=== PATIENT | female | born 1950 | race Caucasian/White ===

== ENCOUNTER → 2016-10-12 | Outpatient (CLI) | payer BC, MEDICARE | END | disposition home or self-care (01) | LOC: LABWHC1 09:41 | PROVIDERS: ATTEND Psychiatry & Neurology Neurology | DX: R26.89 Other abnormalities of gait and mobility (principal) | CPT/HCPCS: 36415; 82607; 82747 ==

== ENCOUNTER → 2016-11-24 | Outpatient (CLI) | payer BC, MEDICARE ==
[2016-11-24 10:55] LABS: Blood Urea Nitrogen 17 mg/dL (7-17); Non-African American GFR(MDRD) >60 (>60 ml/min/1.73 sqM)
== END ==
LOC: LABWHC1 09:40
PROVIDERS: ATTEND Psychiatry & Neurology Neurology
DX: R26.89 Other abnormalities of gait and mobility (principal); R42 Dizziness and giddiness
CPT/HCPCS: 36415; 82565; 84520

== ENCOUNTER → 2017-01-09 | Outpatient (CLI) | payer BC, MEDICARE ==
[2017-01-09 10:58] LABS: CH 28.7; CHCM 32.6; HDW 2.17; HGB 13.4 gm/dL (11.4-16.0); MCH 28.1 pg (25.0-35.0); MCHC 31.8 g/dL (31.0-37.0); MCV 88.4 fL (80.0-100.0); Mean Platelet Volume 6.2; RBC 4.75 m/uL (3.80-5.40); RDW 13.8 % (11.5-15.5); WBC 7.5 k/uL (3.8-10.6)
[2017-01-09 11:12] LABS: ALT 25 U/L (9-52); AST 15 U/L (14-36); Alkaline Phosphatase 117 U/L (38-126); Anion Gap 11 mmol/L; Blood Urea Nitrogen 18 mg/dL (7-17); Calcium 9.5 mg/dL (8.4-10.2); Carbon Dioxide 24 mmol/L (22-30); Chloride 95 mmol/L (98-107); Glucose 76 mg/dL (74-99); Non-African American GFR(MDRD) >60 (>60 ml/min/1.73 sqM); Potassium 4.7 mmol/L (3.5-5.1); Sodium 130 mmol/L (137-145); Total Bilirubin 0.5 mg/dL (0.2-1.3); Total Protein 7.2 g/dL (6.3-8.2)
[2017-01-09 11:35] LABS: Partial Thromboplastin Time 26.1 sec (22.0-30.0); Prothrombin Time 10.3 sec (9.0-12.0)
[2017-01-09 12:19] LABS: Appearance,Urine Clear (Clear); Bilirubin,Urine Negative (Negative); Glucose,Urine (UA) Negative (Negative); Ketones,Urine Negative (Negative); Leukocyte Esterase,Urine Negative (Negative); Nitrite,Urine Negative (Negative); Particle Count 1675; Protein,Urine Negative (Negative); RBC,Urine 3 /hpf (0-5); Specific Gravity,Urine 1.006 (1.001-1.035); UA Billing (MACRO vs. MICRO) MICRO; Urobilinogen,Urine <2.0 mg/dL (<2.0); WBC,Urine 3 /hpf (0-5)
== END | disposition home or self-care (01) ==
LOC: LABWHC1 09:27
PROVIDERS: ATTEND Orthopaedic Surgery
DX: Z01.812 Encounter for preprocedural laboratory examination (principal)
CPT/HCPCS: 36415; 80053; 81001; 85027; 85610; 85730; 87070

== ENCOUNTER 2017-01-16 05:59 | Inpatient (IN) | payer BC, MEDICARE ==
--- NOTE | 2017-01-02 16:56 | CONS ---
DATE OF CONSULTATION: REASON FOR CONSULTATION: Preoperative medical evaluation. HISTORY OF PRESENT ILLNESS: This 66-year-old female is scheduled to undergo left total knee arthroplasty. She has a history of degenerative arthritis, and due to increasing pain and decreasing function in the joint, the patient is scheduled for the surgery. Patient has been evaluated by Dr. Mendez and scheduled for the surgery. The patient has had no recent infections; has no history of any bleeding disorder. She recently underwent evaluation for a syncopal episode back in June. She had normal CT scan of the brain, normal stress testing. The patient also had an MRI of the brain due to imbalance and disequilibrium. That was unremarkable except for some fluid in the mastoids. The patient has been followed by ENT, who treated her, and her balance is somewhat better. The patient has no falls. Past medical history is primarily significant for hypertension, controlled with medications; history of hypothyroidism following treatment for hyperthyroidism. No history of any lung disease, liver disease, kidney disease, ulcers. Does have history of gastroesophageal reflux and heartburn if she does not take medication. No history of kidney disease. Does have degenerative arthritis. No history of any cardiac illness. PAST SURGICAL HISTORY: Negative for any major surgery. PERSONAL HISTORY: Nonsmoker. No alcohol. Medications include: 1. Hydrochlorothiazide 25 mg half tablet every other day. 2. Losartan/hydrochlorothiazide 50/12.5 one daily. 3. Prevacid 30 mg daily. 4. Metoprolol 50 mg daily. 5. Levothyroxine 112 mcg daily. SOCIAL HISTORY: Patient lives with family. FAMILY MEDICAL HISTORY: Mother of dementia, ASHD, old age and had significant degenerative arthritis of the knees. Sister has a history of mitral regurgitation and carcinoma of the breast and diabetes mellitus. Her children are healthy. REVIEW OF SYSTEMS: NEURO: Denies any headaches, dizziness. No double vision, blurred vision. No symptoms of TIA, syncope, seizures. PSYCH: No anxiety, depression. CARDIAC: No chest pain, angina, palpitations. RESPIRATORY: Denies shortness of breath, cough, hemoptysis. GI: No nausea, vomiting, abdominal pain, diarrhea. : No symptoms of dysuria, hematuria, urgency, frequency. EXTREMITIES: Denies pain except at the left knee. CONSTITUTIONAL: No fever or chills. HEMATOLOGICAL: No anemia or bleeding disorder. ENDOCRINE: No history of diabetes mellitus. History of hypothyroidism. SKIN: No rashes. No open sores. ENT: Dentition well maintained. Ears reveal no drainage. MUSCULOSKELETAL: Arthritic symptoms, left knee. PHYSICAL EXAMINATION: Pleasant female in no distress. VITAL SIGNS: Blood pressure 150/80. Pulse rate is 76, regular. Afebrile. Respiratory rate 16. HEENT: Normocephalic. NECK: No JVD. Pupils reactive. Nostrils clear. Oral cavity is moist. Dentition well maintained. Gum health is good. Ears reveal no drainage. Neck reveals no JVD, carotid bruits or thyromegaly. No supraclavicular lymphadenopathy. Chest is clear to auscultation and percussion. CARDIAC: Normal S1, S2 with no gallops, murmurs, rubs. ABDOMEN: Soft. No palpable masses. Bowel sounds normal. No organomegaly. No abdominal bruits. Extremities reveal trace edema. Normal pulses, both upper and lower extremities. Significant valgus deformity, left knee, and degenerative arthritic changes. EKG is within normal limits. ASSESSMENT: 1. Hypertension, controlled. 2. Hypothyroidism, on replacement therapy. 3. Degenerative arthritis, especially affecting the left knee. 4. History of syncopal episode in June with negative workup. PLAN: The patient is stable to undergo the planned surgical procedure. Patient's condition was discussed with the patient. The patient will take her Prevacid, metoprolol and thyroid medicine on the morning of surgery. Prognosis guarded. Reviewed with patient the risk of infections and blood clots, for which adequate precautions have been taken. Patient's condition is stable at present to undergo the planned surgical procedure.
[2017-01-10 13:59] VITALS: BMI 36.1
[~2017-01-16 05:59] MED LIST: CLINDAMYCIN 900 MG in DEXTROSE 5% IN WATER 50 ML IVPB ONE; DEXAMETHASONE SOD PHOSPHATE 10 MG/ML 1 ML VIAL IV ONE; LACTATED RINGERS 1,000 ML IV SCH; MIDAZOLAM 2 MG/2 ML VIAL IV PRN; ONDANSETRON 4 MG/2 ML VIAL IVP ONE
[2017-01-16 06:34] LABS: Glucose,Whole Blood 92 mg/dL (75-99)
[2017-01-16] MEDS ORDERED: LIDOCAINE 1% 20 ML VIAL (10MG/ML) FOR IV START INTRADERMA ONE (06:35)
[2017-01-16] MEDS ORDERED: SCOPOLAMINE 1.5MG/72HR PATCH TRANSDERM ONE (06:35)
[2017-01-16] MEDS ORDERED: fentaNYL (PF) 50 MCG/ML 2 ML AMP ONE (07:00)
[2017-01-16] MEDS ORDERED: ePHEDrine 50 MG/ML 1 ML AMP ONE (07:00)
[2017-01-16] MEDS ORDERED: PROPOFOL 10 MG/ML 20 ML VIAL IV ONE (07:00)
[2017-01-16] MEDS ORDERED: MIDAZOLAM 2 MG/2 ML VIAL ONE (07:00)
[2017-01-16] MEDS ORDERED: CLINDAMYCIN 1,800 MG in SODIUM CHLORIDE 0.9% IRRIGATIO 3,000 ML IRRIGATION ONE (07:42)
[2017-01-16] MEDS ORDERED: LACTATED RINGERS 1,000 ML IV ONE ×2 (08:00)
[2017-01-16] MEDS ORDERED: BISACODYL 10 MG SUPP RECTAL PRN (09:14)
[2017-01-16] MEDS ORDERED: TEMAZEPAM 15 MG CAP PO PRN (09:14)
[2017-01-16] MEDS ORDERED: ONDANSETRON 4 MG/2 ML VIAL IVP PRN (09:14)
[2017-01-16] MEDS ORDERED: ACETAMINOPHEN TAB 325 MG TAB PO PRN (09:14)
[2017-01-16] MEDS ORDERED: NALOXONE 0.4 MG/ML 1 ML VIAL IV PRN (09:14)
[2017-01-16] MEDS ORDERED: HYDROmorphone 1 MG/ML 1 ML SYRINGE IVP PRN ×3 (09:14)
[2017-01-16] MEDS ORDERED: MAGNESIUM HYDROXIDE 2,400 MG/10 ML CUP PO PRN (09:14)
[2017-01-16] MEDS ORDERED: HYDROcodone/APAP 5-325MG 1 EACH TAB PO PRN (09:14)
[2017-01-16] MEDS ORDERED: NA PHOS,M-B/NA PHOS,DI-BA 133 ML ENEMA RECTAL PRN (09:14)
[2017-01-16] MEDS: HYDROmorphone 1 MG/ML 1 ML SYRINGE IVP PRN ×3 (10:05→14:44)
--- NOTE | 2017-01-16 10:15 | XR ---
Left knee Limited HISTORY: Postop 2 views of the left knee No comparisons Patient is status post left knee arthroplasty. There is anatomic alignment. Lucency present in the so ft tissues compatible with postop state. IMPRESSION: Orthopedic Follow-up.
[2017-01-16] MEDS: LACTATED RINGERS 1,000 ML IV SCH ×2 (11:17→20:26)
[2017-01-16] MEDS: HYDROcodone/APAP 5-325MG 1 EACH TAB PO PRN ×2 (11:20→17:24)
[2017-01-16] MEDS: CLINDAMYCIN 900 MG in DEXTROSE 5% IN WATER 50 ML IVPB SCH ×4 (12:10→17:31)
[2017-01-16] MEDS: KETOROLAC 30 MG/ML 1 ML VIAL IVP SCH ×3 (12:31→23:30)
[2017-01-16] MEDS: hydrOXYzine PAMOATE 25 MG CAP PO PRN (17:24)
[2017-01-16] MEDS ORDERED: WARFARIN 5 MG TAB PO ONE (18:00)
[2017-01-16] MEDS ORDERED: LEVOTHYROXINE 112 MCG TAB PO SCH (18:00)
[2017-01-16] MEDS: METOPROLOL TARTRATE 50 MG TAB PO SCH (20:25)
[2017-01-16] MEDS: SENNOSIDES-DOCUSATE SODIUM 1 EACH TAB PO SCH (20:25)
[2017-01-16] MEDS: LORATADINE 10 MG TAB PO SCH (20:25)
[2017-01-16] MEDS: FAMOTIDINE 20 MG TAB PO SCH (22:07)
[2017-01-17] MEDS: LACTATED RINGERS 1,000 ML IV SCH ×2 (04:17→16:37)
[2017-01-17] MEDS: HYDROcodone/APAP 5-325MG 1 EACH TAB PO PRN ×3 (04:30→15:56)
[2017-01-17] MEDS: hydrOXYzine PAMOATE 25 MG CAP PO PRN ×3 (04:31→22:02)
[2017-01-17] MEDS: KETOROLAC 30 MG/ML 1 ML VIAL IVP SCH ×3 (05:40→18:00)
--- NOTE | 2017-01-17 07:46 | PN ---
CHIEF COMPLAINT: Re-evaluation. HISTORY OF PRESENT ILLNESS: This is a 66-year-old female who is status post left total knee arthroplasty. REVIEW OF SYSTEMS: NEURO: Denies any headaches, dizziness. PSYCH: No anxiety. CARDIAC: No chest pain, angina, palpitation. RESPIRATORY: No shortness breath, cough. GI: No nausea, vomiting, abdominal pain. Has significant pain in the left knee. CONSTITUTIONAL: No fever or chills. PHYSICAL EXAMINATION: Pleasant female in no distress. Vital signs reveal temperature 97.8, pulse 89, respirations 16, blood pressure 131/72, pulse ox of 95% on room air. HEENT: Normocephalic. NECK: No JVD. Chest is clear to auscultation. CARDIAC: Normal S1, S2 with no gallops. Systolic murmur. No gallops or murmurs. ABDOMEN: Soft. Bowel sounds active. Extremities reveal no edema. NEUROLOGIC: Awake, alert, oriented with well coordinated movements of both upper extremities. Left knee total, left status post knee arthroplasty. Laboratory assessment revealed a blood sugar of 92 preoperatively. ASSESSMENT: 1. Hypertension, controlled. 2. History of gastroesophageal reflux. 3. History of hypothyroidism on replacement therapy. 4. Status post left knee arthroplasty. PLAN: The patient is stable. Continue present medical regimen. The patient's condition discussed with the patient. Prognosis guarded.
[2017-01-17] MEDS: PANTOPRAZOLE 40 MG TABLET PO SCH (08:04)
[2017-01-17 08:13] LABS: INR 1.3 (<1.1); Prothrombin Time 12.5 sec (9.0-12.0)
[2017-01-17 08:15] LABS: Basophils % (A) 0 %; CH 28.8; CHCM 32.9; Eosinophils % (A) 1 %; HCT 29.7 % (34.0-46.0); HDW 2.08; Luc # (Auto) 0.08; Luc % (Auto) 1; Lymphocytes # (A) 0.9 k/uL (1.0-4.8); Lymphocytes % (A) 15 %; MCV 87.9 fL (80.0-100.0); Mean Platelet Volume 6.2; Monocytes # (A) 0.4 k/uL (0-1.0); Monocytes % (A) 7 %; Neutrophils # (A) 4.7 k/uL (1.3-7.7); Neutrophils % (A) 76 %; RBC 3.38 m/uL (3.80-5.40); WBC 6.2 k/uL (3.8-10.6); WBC (Perox) 6.49
[2017-01-17 08:17] LABS: HGB 9.8 gm/dL (11.4-16.0)
--- NOTE | 2017-01-17 08:29 | P.PN ---
Subjective Principal diagnosis: Status post Left total knee arthroplasty This is a 66 year-old female post left total knee arthroplasty. This is post- op day 1. The patient was evaluated at the bedside today. The patient denies nausea, vomiting, abdominal pain, shortness of breath, and chest pain this morning. She states her pain is controlled at this time. The patient has not been up with physical therapy yet this morning but did sit up in the recliner chair yesterday. She does state she has some calf pain this morning. Objective - Vital Signs Vital signs: Vital Signs Temp 96.5 F L 01/17/17 07:40 Pulse 66 01/17/17 07:40 Resp 16 01/17/17 07:40 BP 131/73 01/17/17 07:40 Pulse Ox 99 01/17/17 07:40 Intake & Output 01/16/17 01/17/17 01/17/17 18:59 06:59 18:59 Intake Total 4668 1680 Output Total 2325 520 Balance 2343 1160 Weight 93.894 kg Intake: IV 4268 1200 Lactated Ringers 1,000 ml 1200 @ 100 mls/hr IV .Q10H BISHOP Rx#:[id number] Intake, IV Titration 400 Amount Lactated Ringers 1,000 ml 400 @ 100 mls/hr IV .Q10H BISHOP Rx#:[id number] Oral 480 Output: Urine 2250 520 Uretheral (Herron) 520 Estimated Blood Loss 75 Other: Voiding Method Indwelling Catheter Indwelling Catheter # Voids 1 - Exam The patient does not appear in acute distress. Alert and orientated x3. Dressing is clean dry and intact. Incision appears fine with no erythema or active drainage. Calf is soft but tender. Mild calf swelling is present. Good foot and ankle motion without difficulty. Sensation and circulatory status is intact. - Labs CBC & Chem 7: 01/17/17 07:25 Labs: Abnormal Lab Results - Last 24 Hours (Table) 01/17/17 01/17/17 Range/Units 07:22 07:25 RBC 3.38 L (3.80-5.40) m/uL Hgb 9.8 L D (11.4-16.0) gm/dL Hct 29.7 L (34.0-46.0) % Lymphocytes # 0.9 L (1.0-4.8) k/uL PT 12.5 H (9.0-12.0) sec Laboratory Tests 01/17/17 07:22 PT 12.5 H INR 1.3 Assessment and Plan (1) Primary localized osteoarthritis of left knee Status: Acute (2) Status post left knee replacement Status: Acute Plan: 1. Continue pain control 2. Anticoagulation with Coumadin per protocol 3. Start physical therapy and ambulation today 4. Venous doppler ordered. 5. Anticipate discharge home with homecare likely on Sunday
--- NOTE | 2017-01-17 10:06 | US ---
EXAMINATION TYPE: US venous doppler duplex LE LT DATE OF EXAM: 01/17/2017 9:35 AM COMPARISON: NONE CLINICAL HISTORY: left calf pain and swelling. SIDE PERFORMED: Left TECHNIQUE: The lower extremity deep venous system is examined utilizing real time linear array sonog aretha with graded compression, doppler sonography and color-flow sonography. VESSELS IMAGED: External Iliac Vein (EIV) Common Femoral Vein Deep Femoral Vein Greater Saphenous Vein * Femoral Vein Popliteal Vein Small Saphenous Vein * Proximal Calf Veins (* superficial vessels) Patient had knee replacement yesterday, extensive swelling at pop fossa, pain at pop fossa Left Leg: Appears negative for DVT. Technically difficult at pop fossa due to swelling. IMPRESSION: 1. No diagnostic evidence of DVT as visualized.
--- NOTE | 2017-01-17 13:03 | OP ---
DATE OF SERVICE: 01/16/2017 SURGEON: CAROL SINCLAIR DO AUTOMATIC PROFILE SANDER OPERATOR: BRISEYDA FONSECA PREOPERATIVE DIAGNOSIS: Severe degenerative joint disease of the left knee with significant valgus deformity. POSTOPERATIVE DIAGNOSIS: Severe degenerative joint disease of the left knee with significant valgus deformity. OPERATION: Left total knee replacement arthroplasty utilizing Moy Persona posterior stabilizing polyethylene component. ANESTHESIA: ESTIMATED BLOOD LOSS: SPECIMENS REMOVED: COMPLICATIONS: OPERATIVE FINDINGS: DESCRIPTION OF PROCEDURE: Patient is taken to the Operative Suite and placed in supine position. General inhalation anesthesia with spinal anesthesia was performed by the Department of Anesthesiology. A Betadine prep is carried out over the left knee, mid thigh to mid calf. Sterile drapes applied in the usual manner. A medial parapatellar incision was developed as well as the synovium. Patella was everted and dislocated laterally as the knee was brought into flexion position and held in position with leg hernandez. A size #3 lateral trial component was prepared and the appropriate cut was developed. The positioning component was impacted in position and alignment was noted. The tibial cutting guide was brought into position and appropriate wafer cut developed. The medial and lateral malleolus was excised. A size #6 tibial plate was selected and preparation for temporary spacer in size #11 was utilized in preparing for appropriate peg hole positions. The area was irrigated copiously. The tibial tray was marked for position held and appropriate peg holes were drilled in preparation for tibial tray. With the patella everted, a shelving planer was utilized in preparing for a size 33 mm patellar button. It was drilled for position and appropriate in the reaming performed. All provisional components were removed. With the knee in flexion position the trabecular component size D was impacted and excellent bone component interface was noted. Minimal cement was utilized. The final patellar component was cemented in position in the predrilled holes. All excess cement was removed. With the leg positioned in slight flexion,. The area was irrigated copiously with antibiotic solution. The medial retinaculum was then approximated with #3 Vicryl suture. A #3 Quill suture was used to reinforce the retinaculum. A 2-0 Vicryl suture was utilized for closure of the subcutaneous tissues. A 3-0 Quill suture was utilized for the subcuticular closure. Dermabond was utilized on the wound. Betadine and sterile pressure dressing to the wound was applied. The Pneumo vac had been deflated and patient transferred to the Recovery Room in satisfactory post-op condition. GROSS PATHOLOGY: Tricompartment degenerative joint disease left knee with valgus deformity. VEENA
[2017-01-17] MEDS ORDERED: WARFARIN 7.5 MG TAB PO ONE (18:00)
[2017-01-17] MEDS ORDERED: LEVOTHYROXINE 112 MCG TAB PO SCH (18:00)
[2017-01-17] MEDS: FAMOTIDINE 20 MG TAB PO SCH (21:22)
[2017-01-17] MEDS: METOPROLOL TARTRATE 50 MG TAB PO SCH (21:22)
[2017-01-17] MEDS: SENNOSIDES-DOCUSATE SODIUM 1 EACH TAB PO SCH (21:22)
[2017-01-17] MEDS: LORATADINE 10 MG TAB PO SCH (21:22)
[2017-01-17] MEDS: HYDROcodone/APAP 7.5-325MG 1 EACH TAB PO PRN (22:01)
[2017-01-18] MEDS: KETOROLAC 30 MG/ML 1 ML VIAL IVP SCH ×3 (00:13→13:03)
[2017-01-18 02:19] VITALS: RESP 16
[2017-01-18 07:24] VITALS: BP 147/75; PULSE 72; TEMP 98.1
[2017-01-18 07:28] LABS: INR 1.4 (<1.1); Prothrombin Time 13.8 sec (9.0-12.0)
[2017-01-18] MEDS: PANTOPRAZOLE 40 MG TABLET PO SCH (07:47)
[2017-01-18] MEDS: hydrOXYzine PAMOATE 25 MG CAP PO PRN ×2 (07:49→13:58)
[2017-01-18] MEDS: HYDROcodone/APAP 7.5-325MG 1 EACH TAB PO PRN ×2 (07:50→13:58)
--- NOTE | 2017-01-18 08:05 | PN ---
CHIEF COMPLAINT: Re-evaluation. HISTORY OF PRESENT ILLNESS: This is a 66-year-old female status post left knee arthroplasty. The patient is doing better today. Her pain is better controlled. She denies much other symptoms. No headaches, dizziness. She is in good spirits. She does have a history of hypertension and hypothyroidism. She had slight dizziness yesterday when she got up. Today she has not been up yet. REVIEW OF SYSTEMS: NEURO: Denies any headaches, dizziness. PSYCH: No anxiety. CARDIAC: No chest pain, angina, palpitation. RESPIRATORY: No shortness of breath, cough. GI: No nausea, vomiting, abdominal pain. No bowel movement. : No symptoms of dysuria, hematuria. EXTREMITIES: No pain. CONSTITUTIONAL: No fever or chills. PHYSICAL EXAMINATION: A pleasant female in no distress. Vital signs reveal temperature 96.5, pulse 66, respirations 16, blood pressure 131/73, pulse ox 99% on room air. HEENT: Normocephalic. NECK: Supple. No JVD. Chest is clear to auscultation. CARDIAC: Normal S1, S2 with no gallops. Systolic murmur 2/6 left sternal border. ABDOMEN: Soft, no palpable masses. Bowel sounds normal. No organomegaly. No abdominal bruits. EXTREMITIES: No edema. Neurologically awake, alert, oriented with well-coordinated movements in both upper extremities. LABORATORY ASSESSMENT: Hemoglobin 9.8. ASSESSMENT: 1. Hypertension, controlled. 2. Anemia secondary to acute blood loss. PLAN: The patient to continue present medical regimen. Patient's condition discussed with the patient. Prognosis guarded.
--- NOTE | 2017-01-18 08:25 | PN ---
DATE OF SERVICE: 01/18/2017 CHIEF COMPLAINT: Re-evaluation. HISTORY OF PRESENT ILLNESS: This is a 66-year-old who was admitted to the hospital and has undergone a left total knee arthroplasty. She is doing better. REVIEW OF SYSTEMS: NEURO: Denies any headaches, dizziness. PSYCH: No anxiety. CARDIAC: No chest pain, angina, palpitation. RESPIRATORY: No shortness of breath, cough, hemoptysis. GI: No nausea, vomiting, or abdominal pain. No bowel movement still. : No symptoms of dysuria, hematuria. EXTREMITIES: No pain except to the left knee. CONSTITUTIONAL: No fever or chills. PHYSICAL EXAMINATION: Pleasant female in no distress. VITAL SIGNS: Temperature 98.1, pulse 72, respirations 16, blood pressure 147/75, pulse ox 98% on room air. HEENT: Normocephalic. NECK: Supple. CHEST: Clear to auscultation. CARDIAC: Normal S1, S2 with no gallops, murmurs. ABDOMEN: Soft. Bowel sounds active. EXTREMITIES: No edema right leg, trace left ankle. NEUROLOGIC: Awake, alert, oriented with well coordinated movements in both upper extremities. The patient has been walking with a walker. Laboratory assessment: INR 1.4. Hemoglobin is 9.8. ASSESSMENT: 1. Hypertension, on medical therapy. 2. Hypothyroidism, on replacement therapy. 3. Anemia secondary to acute blood loss. 4. Degenerative joint disease, status post left knee arthroplasty. PLAN: The patient is stable. Continue present medical regimen. The patient's condition discussed with the patient and her Hyzaar will be resumed. Upon discharge, patient to continue her medications.
--- NOTE | 2017-01-18 08:37 | P.PN ---
Subjective Principal diagnosis: Status post Left total knee arthroplasty This is a 66 year-old female post left total knee arthroplasty. This is post- op day 2. The patient was evaluated at the bedside today. The patient denies nausea, vomiting, abdominal pain, shortness of breath, and chest pain this morning. She states her pain is controlled at this time. The patient has been up ambulating with physical therapy and to the bathroom. She continues to have calf pain and swelling. Doppler was negative yesterday. Objective - Vital Signs Vital signs: Vital Signs Temp 98.1 F 01/18/17 07:00 Pulse 72 01/18/17 07:00 Resp 16 01/18/17 07:00 BP 147/75 01/18/17 07:00 Pulse Ox 98 01/18/17 07:00 Intake & Output 01/17/17 01/18/17 01/18/17 18:59 06:59 18:59 Intake Total 1200 300 Output Total 600 Balance 600 300 Intake: Oral 1200 300 Output: Urine 600 Uretheral (Herron) 400 Other: Voiding Method Toilet Toilet # Voids 2 - Exam The patient does not appear in acute distress. Alert and orientated x3. Dressing is clean dry and intact. Incision appears fine with no erythema or active drainage. Calf is soft but tender. Mild calf swelling is present. Good foot and ankle motion without difficulty. Sensation and circulatory status is intact. - Labs CBC & Chem 7: 01/17/17 07:25 Labs: Abnormal Lab Results - Last 24 Hours (Table) 01/18/17 Range/Units 06:58 PT 13.8 H (9.0-12.0) sec Laboratory Tests 01/18/17 06:58 PT 13.8 H INR 1.4 Assessment and Plan (1) Primary localized osteoarthritis of left knee Status: Acute (2) Status post left knee replacement Status: Acute Plan: 1. Continue pain control 2. Anticoagulation with Coumadin per protocol 3. Continue physical therapy and ambulation today 4. Anticipate discharge home with homecare later today or tomorrow
[2017-01-18] MEDS ORDERED: LOSARTAN-HCTZ 50-12.5 MG 1 EACH TAB PO SCH (09:00)
--- NOTE | 2017-01-23 11:47 | P.DS ---
Providers Date of admission: 01/16/17 05:59 Expected date of discharge: 01/18/17 Attending physician: Sacha Mendez Consults: 01/16/17 09:14 Consult Physician Routine Consulting Provider: Shmuel Arauz Consult Reason/Comments: medical management Do you want consulting provider notified?: Yes Primary care physician: Shmuel Arauz - Discharge Diagnosis(es) (1) Primary localized osteoarthritis of left knee Status: Acute (2) Status post left knee replacement Status: Acute Hospital Course: This is a 66 year-old female last seen in our office with complaints of left knee pain. The patient has a known history of degenerative arthritis of the left knee and presented to discuss options. After discussion and consideration the patient elected to proceed with a left total knee arthroplasty. The patient was seen preoperatively by Dr. Arauz and cleared for surgery. The patient was admitted to [facility] on 01/16/2017 and underwent a left total knee arthroplasty by Dr. Mendez. The procedure was performed without complications or sequelae. The patient was seen and evaluated at bedside today. The patient's pain is well-controlled. The patient has no new complaints today denies any fevers, chills, nausea, vomiting, or shortness of breath. Vital signs are stable. The dressing is clean, dry and intact. Incision looks fine with no erythema or active drainage. Calf is soft but mildly tender. The patient has full ankle motion without difficulty. The patient's left lower extremity is neurovascularly intact. The patient is orthopedically stable for discharge home today in good condition. Pertinent Studies: Laboratory Tests 01/17/17 01/18/17 07:25 06:58 WBC 6.2 RBC 3.38 L Hgb 9.8 L D Hct 29.7 L PT 13.8 H INR 1.4 Patient Condition at Discharge: Stable Plan - Discharge Summary New Discharge Prescriptions: Aspirin 325 mg PO DAILY #30 tab HYDROcodone/APAP 7.5-325MG [[place]avenport 7.5-325] 1 - 2 tab PO Q4-6H PRN #90 tab PRN Reason: Pain hydrOXYzine PAMOATE [Vistaril] 25 mg PO TID PRN #60 cap PRN Reason: Pain Sennosides-Docusate Sodium [Senokot-S] 2 tab PO DAILY #30 tablet Discharge Medication List Acetaminophen Tab [Tylenol] 1,000 mg PO DAILY@1415 09/29/15 [History] Lansoprazole [Prevacid] 30 mg PO QAM 09/29/15 [History] Levothyroxine Sodium [Synthroid] 112 mcg PO Q2D@1800 09/29/15 [History] Losartan-Hctz 50-12.5 mg [Hyzaar 50-12.5] 1 tab PO QAM 09/29/15 [History] Metoprolol Tartrate [Lopressor] 50 mg PO HS 09/29/15 [History] Multivit-Min/FA/Lycopen/Lutein [Centrum Silver Tablet] 1 tab PO DAILY 09/29/15 [ History] Naproxen Sodium [Aleve] 440 mg PO QAM 09/29/15 [History] Ranitidine HCl [Zantac] 150 mg PO HS 09/29/15 [History] Cetirizine HCl 10 mg PO DAILY@2000 01/10/17 [History] Levothyroxine Sodium [Synthroid] 168 mcg PO Q2D@1800 01/10/17 [History] Systane Ultra 1 drop BOTH EYES QID 01/10/17 [History] Triamcinolone Acetonide [Nasacort] 1 spray EA NOSTRIL QAM 01/10/17 [History] Aspirin 325 mg PO DAILY #30 tab 01/18/17 [Rx] Bisacodyl [Dulcolax] 10 mg RECTAL DAILY PRN suppositor 01/18/17 [Rx] HYDROcodone/APAP 7.5-325MG [Davenport 7.5-325] 1 - 2 tab PO Q4-6H PRN #90 tab [Rx] Magnesium Hydroxide [Milk of Magnesia Concentrate] 2,400 mg PO DAILY PRN dose 01/18/17 [Rx] Sennosides-Docusate Sodium [Senokot-S] 2 tab PO DAILY #30 tablet 01/18/17 [Rx] hydrOXYzine PAMOATE [Vistaril] 25 mg PO TID PRN #60 cap 01/18/17 [Rx] Warfarin [Coumadin] 2.5 mg PO Q48H 01/21/17 [History] Follow up Appointment(s)/Referral(s): Shmuel Arauz MD [Primary Care Provider] - 1 Week (pt prefers to schedule f/u) Sacha Mendez DO [Doctor of Osteopathic Medicine] - 02/01/17 10:30 am [facility] Visiting Nurse, [NON-STAFF] - 1 Week Ambulatory/Diagnostic Orders: Continuous Passive Motion (CPM) Machine [DME.AMB1] Time Frame: 3 Weeks, Location : Determined By Patient Activity/Diet/Wound Care/Special Instructions: [facility] [phone] -patient to call when home and they will schedule delivery of CPM Weightbearing as tolerated with a walker Coumadin 2.5 mg 1 by mouth every other day for 7 days then take Aspirin 325mg daily for 1 month CPM 5-6 hours daily May shower in 3 days if no drainage from incision Keep incision clean and dry Call [facility] [phone] with questions or concerns Discharge Disposition: HOME WITH HOME HEALTH SERVICES
== END 2017-01-18 15:10 | disposition home health service (06) | DRG 470 ==
LOC: 2ORMAIN 05:59 → 3SUR 09:37
PROVIDERS: ADMIT Orthopaedic Surgery; ATTEND Orthopaedic Surgery
PROC: 0SRD0J9 Replacement of Left Knee Joint with Synthetic Substitute, Cemented, Open Approach (ICD-10-PCS; principal; 2017-01-16 07:00)
DX: M17.12 Unilateral primary osteoarthritis, left knee (principal); D62 Acute posthemorrhagic anemia; I10 Essential (primary) hypertension; Z79.899 Other long term (current) drug therapy; E03.9 Hypothyroidism, unspecified; Z88.0 Allergy status to penicillin; Z88.2 Allergy status to sulfonamides; M21.062 Valgus deformity, not elsewhere classified, left knee; K21.9 Gastro-esophageal reflux disease without esophagitis; Z82.49 Family history of ischemic heart disease and other diseases of the circulatory system
CPT/HCPCS: 36415; 80053; 81001; 85025; 85027; 85610; 85730; 87070; 88300

== ENCOUNTER 2017-01-21 18:56 | Emergency (ER) | payer BC, MEDICARE ==
[2017-01-21 19:30] VITALS: TEMP 98.4
--- NOTE | 2017-01-21 19:48 | ED ---
General Adult HPI - General Chief complaint: Extremity Problem,Nontraumatic Stated complaint: Post surgical problem- Knee Source: patient, family, RN notes reviewed, old records reviewed Mode of arrival: wheelchair Limitations: no limitations - History of Present Illness Initial comments: Chief complaint and history of present illness this is a 66-year-old female who 5 days ago and a total left knee down on the left leg. Patient was placed on Coumadin at that time. Prior to being discharged she had an ultrasound which ruled out DVT. Since then she's been using the machine to help her flex and extend and continues to take her Coumadin. For the past 3 days she's becoming more more bruise with swelling and discomfort to the calf area. She called the ask a nurse and she was advised to come into the hospital for evaluation. She is denying any chills or fever. - Related Data Home Medications Medication Instructions Recorded Confirmed Acetaminophen Tab [Tylenol] 500 mg PO Q6H PRN 09/29/15 01/16/17 Lansoprazole [Prevacid] 30 mg PO QAM 09/29/15 01/16/17 Levothyroxine Sodium [Synthroid] 112 mcg PO Q2D@1800 09/29/15 01/16/17 Losartan-Hctz 50-12.5 mg [Hyzaar 1 tab PO QAM 09/29/15 01/16/17 50-12.5] Metoprolol Tartrate [Lopressor] 50 mg PO HS 09/29/15 01/16/17 Multivit-Min/FA/Lycopen/Lutein 1 tab PO DAILY 09/29/15 01/16/17 [Centrum Silver Tablet] Naproxen Sodium [Aleve] 220 mg PO QA 09/29/15 01/16/17 Ranitidine HCl [Zantac] 150 mg PO HS 09/29/15 01/16/17 Cetirizine HCl 10 mg PO DAILY@199901/10/17 01/16/17 Levothyroxine Sodium [Synthroid] 168 mcg PO Q2D@1800 01/10/17 01/16/17 Systane Ultra 1 drop BOTH EYES QID 01/10/17 01/16/17 Triamcinolone Acetonide [Nasacort] 1 spray EA NOSTRIL QAM 01/10/17 01/16/17 Warfarin [Coumadin] 2.5 mg PO Q48H 01/21/17 01/21/17 Previous Rx's Medication Instructions Recorded Aspirin 325 mg PO DAILY #30 tab 01/18/17 Bisacodyl [Dulcolax] 10 mg RECTAL DAILY PRN suppositor 01/18/17 HYDROcodone/APAP 7.5-325MG [[place] 1 - 2 tab PO Q4-6H PRN #90 tab 01/18/17 7.5-325] Magnesium Hydroxide [Milk of 2,400 mg PO DAILY PRN dose 01/18/17 Magnesia Concentrate] Sennosides-Docusate Sodium 2 tab PO DAILY #30 tablet 01/18/17 [Senokot-S] hydrOXYzine PAMOATE [Vistaril] 25 mg PO TID PRN #60 cap 01/18/17 Allergies Allergy/AdvReac Type Severity Reaction Status Date / Time adhesive Allergy skin Verified 01/21/17 20:35 redness and itching cyclosporine [From Restasis] Allergy "made me Verified 01/21/17 20:35 feel like I was drunk" Penicillins Allergy Anaphylaxis Verified 01/21/17 20:35 Sulfa (Sulfonamide Allergy Anaphylaxis Verified 01/21/17 20:35 Antibiotics) Review of Systems ROS Statement: Those systems with pertinent positive or pertinent negative responses have been documented in the HPI. review of systems no headache or visual acuity changes no chest pain no palpitations no shortness of breath no GI/ problems. Her complaint is pain as you expect after a total left knee but significant swelling and ecchymosis to her left lower leg. She is on Coumadin after surgery. All systems were reviewed. Past medical problems significant for GERD, hypertension, OA, hypothyroidism,Hiatal hernia and varicose veins. Patient surgeries tonsillectomy, corrective eye surgery and 5 days ago had a total left knee done. She has ALLERGIES to adhesive, cyclosporine, penicillins and sulfa. Patient does not smoke does not drink. ROS Other: All systems not noted in ROS Statement are negative. Past Medical History Past Medical History: GERD/Reflux, Hypertension, Osteoarthritis (OA), Thyroid Disorder Additional Past Medical History / Comment(s): hiatal hernia,varicose veins, steroid injections rt knee Jan 01 2017,sensitive skin History of Any Multi-Drug Resistant Organisms: None Reported Past Surgical History: Tonsillectomy Additional Past Surgical History / Comment(s): corrective eye surgery for crossed eye Past Anesthesia/Blood Transfusion Reactions: Previous Problems w/ Anesthesia, Motion Sickness, Postoperative Nausea & Vomiting (PONV) Additional Past Anesthesia/Blood Transfusion Reaction / Comment(s): headache with anesthesia,no hx blood transfusion Past Psychological History: Anxiety Smoking Status: Never smoker Past Alcohol Use History: None Reported Past Drug Use History: None Reported - Past Family History Sister(s) Family Medical History: Cancer Additional Family Medical History / Comment(s): breast Mother Family Medical History: No Reported History Father Family Medical History: Myocardial Infarction ([place]) Additional Family Medical History / Comment(s): at age 60 General Exam - General Exam Comments Initial Comments: General: The patient is awake and alert, complaining of discomfort and swelling and ecchymosis to her entire left lower leg distal to a 5-day-old total left knee surgery. Vital signs temp 98.4 pulse 91 respiratory rate 16 pulse ox 99% on room air blood pressure 172/77 Neck: The neck is supple, Cardiovascular: There is a regular rate and rhythm. No murmur, rub or gallop is appreciated. Respiratory: Lungs are clear to auscultation, respirations are non-labored, breath sounds are equal. No wheezes, stridor, rales, or rhonchi. Gastrointestinal: Soft, non-distended, non-tender abdomen without masses or organomegaly noted. There is no rebound or guarding present. No CVA tenderness. Bowel sounds are unremarkable. Back: no back pain Musculoskeletal: pain swelling and ecchymosis left leg post total left knee 5 days ago. Neurovascular status to the foot is intact. Mildly positive Homans sign. Neurological: no complaint of numbness or tingling. Limitations: no limitations Course Vital Signs 01/21/17 01/21/17 19:26 20:25 Temperature 98.4 F Pulse Rate 91 66 Respiratory 16 18 Rate Blood Pressure 172/77 118/74 O2 Sat by Pulse 99 99 Oximetry Medical Decision Making - Medical Decision Making The patient's INR is 1.0. She states she takes a daily. Ultrasound of the leg was done and reviewed by radiologist and his final impression is no evidence of deep venous thrombosis in left leg. As read by Dr. Graham The case discussed with Dr. Osorio on-call orthopod for Dr. Mendez. He recommends 5 mg of Coumadin tonight, the patient will take 5 mg of Coumadin tomorrow at home and follow-up in office the next day where the INR rechecked. Also this evening while in emergency room she is to receive Lovenox 40 mg subcu. - Lab Data Lab Results 01/21/17 Range/Units 19:50 PT 10.4 (9.0-12.0) sec INR 1.0 (<1.1) Disposition Clinical Impression: Pain and swelling of left lower leg Disposition: HOME SELF-CARE Condition: Stable Instructions: Leg Edema (ED) Additional Instructions: Keep leg elevated, take 5 mg of Coumadin tomorrow morning. Follow-up in the orthopedic surgeon's office on Sunday to have your INR repeated. Referrals: Shmuel Arauz MD [Primary Care Provider] - 1-2 days Time of Disposition: 21:18
[2017-01-21 20:25] VITALS: BP 118/74; PULSE 66; RESP 18
[2017-01-21 20:25] LABS: Prothrombin Time 10.4 sec (9.0-12.0)
--- NOTE | 2017-01-21 20:31 | US ---
EXAMINATION TYPE: US venous doppler duplex LE LT DATE OF EXAM: 01/21/2017 8:23 PM COMPARISON: US CLINICAL HISTORY: swelling, pain, on Coumadin, recent total left kne. Left leg pain and swelling, rec ent left knee replacement, patient on blood thinners SIDE PERFORMED: Left TECHNIQUE: The lower extremity deep venous system is examined utilizing real time linear array sonog aretha with graded compression, doppler sonography and color-flow sonography. VESSELS IMAGED: External Iliac Vein (EIV) Common Femoral Vein Deep Femoral Vein Greater Saphenous Vein * Femoral Vein Popliteal Vein Small Saphenous Vein * Proximal Calf Veins (* superficial vessels) Left Leg: Appears negative for DVT IMPRESSION: No evidence of deep venous thrombosis in the left leg.
[2017-01-21] MEDS ORDERED: ENOXAPARIN 40 MG/0.4 ML SYRINGE SQ STA (21:14)
[2017-01-21] MEDS ORDERED: WARFARIN 5 MG TAB PO ONE (21:15)
== END 2017-01-21 21:33 | disposition home or self-care (01) ==
LOC: EC 18:56
DX: M79.662 Pain in left lower leg (principal); R22.42 Localized swelling, mass and lump, left lower limb; K21.9 Gastro-esophageal reflux disease without esophagitis; M19.90 Unspecified osteoarthritis, unspecified site; I10 Essential (primary) hypertension; E07.9 Disorder of thyroid, unspecified; Z98.890 Other specified postprocedural states; Z91.048 Other nonmedicinal substance allergy status; Z88.0 Allergy status to penicillin; Z88.2 Allergy status to sulfonamides; Z88.1 Allergy status to other antibiotic agents; Z79.1 Long term (current) use of non-steroidal anti-inflammatories (NSAID); Z79.01 Long term (current) use of anticoagulants; Z79.899 Other long term (current) drug therapy
CPT/HCPCS: 99284; 96372; 36415; 85610; 93971; J1650

== ENCOUNTER → 2017-09-11 | Outpatient (CLI) | payer BC ==
--- NOTE | 2017-09-12 10:30 | MM ---
Reason for exam: screening (asymptomatic). Last mammogram was performed 1 year and 6 months ago. History: Patient is postmenopausal. Family history of breast cancer in sister at age 73 and breast cancer in maternal aunt at age 74. Benign stereotactic core biopsy of the right breast, December 20, 2001. Core biopsy of the right breast. Physical Findings: A clinical breast exam by your physician is recommended on an annual basis and results should be correlated with mammographic findings. MG 3D Screening Mammo W/Cad Bilateral CC and MLO view(s) were taken. Prior study comparison: March 02, 2016, bilateral MG 3d screening mammo w/cad. January 29, 2014, bilateral MG screening mammo w CAD. Previous mammotome biopsy within the right breast. No significant changes when compared with prior studies. ASSESSMENT: Benign, BI-RAD 2 RECOMMENDATION: Routine screening mammogram of both breasts in 1 year.
== END | disposition home or self-care (01) ==
LOC: RADMAMWWP 08:16
PROVIDERS: ATTEND Internal Medicine
DX: Z12.31 Encounter for screening mammogram for malignant neoplasm of breast (principal)
CPT/HCPCS: 77063; 77067

== ENCOUNTER 2018-07-26 10:46 | Day surgery (SDC) | payer BC, MEDICARE ==
[2018-07-24 15:52] VITALS: BMI 34.4
[~2018-07-26 10:46] MED LIST changes: -CLINDAMYCIN 900 MG in DEXTROSE 5% IN WATER 50 ML IVPB ONE; -DEXAMETHASONE SOD PHOSPHATE 10 MG/ML 1 ML VIAL IV ONE; -MIDAZOLAM 2 MG/2 ML VIAL IV PRN; -ONDANSETRON 4 MG/2 ML VIAL IVP ONE
[2018-07-26 11:11] VITALS: TEMP 98.2
[2018-07-26] MEDS ORDERED: LIDOCAINE 1% INJ 10MG/ML (20 ML MDV) ONE (12:32)
[2018-07-26] MEDS ORDERED: PROPOFOL 10 MG/ML 20 ML VIAL IV ONE (12:32)
--- NOTE | 2018-07-26 12:50 | P.PCN ---
Date of Procedure: 07/26/18 Procedure(s) Performed: BRIEF HISTORY: Patient is a 68-year-old pleasant white female, scheduled for an elective colonoscopy as a part of screening for colorectal neoplasia. PROCEDURE PERFORMED: Colonoscopy. PREOPERATIVE DIAGNOSIS: Screening for colon cancer. IV sedation per Anesthesia. PROCEDURE: After informed consent was obtained, the patient, was brought into the endoscopy unit. IV sedation was administered by Anesthesia under continuous monitoring. Digital rectal examination was normal. Initially the Olympus CF- 160 flexible video colonoscope was then inserted in the rectum, gradually advanced into the cecum without any difficulty. Careful examination was performed as the scope was gradually being withdrawn. Ileocecal valve and the appendiceal orifice were visualized and appeared normal. Prep was excellent. Mucosa of the cecum, ascending colon, transverse colon, descending colon, sigmoid colon, and rectum appeared normal. Scattered sigmoid diverticulosis. Retroflexion was performed in the rectum and no lesions were seen. The patient tolerated the procedure well. IMPRESSION: Normal-appearing colon from rectum to cecum with no evidence of colorectal neoplasia. Scattered sigmoid diverticulosis. RECOMMENDATIONS: Findings of this examination were discussed with the patient as well as her family. She was advised to have a repeat screening colonoscopy in 10 years.
[2018-07-26 13:05] VITALS: RESP 18
[2018-07-26 14:23] VITALS: BP 142/67; PULSE 75
== END 2018-07-26 13:35 | disposition home or self-care (01) ==
LOC: ORWHC2ENDO 10:46
PROVIDERS: ATTEND Internal Medicine Gastroenterology
DX: Z12.11 Encounter for screening for malignant neoplasm of colon (principal); K57.30 Diverticulosis of large intestine without perforation or abscess without bleeding; I10 Essential (primary) hypertension; K21.9 Gastro-esophageal reflux disease without esophagitis; E07.9 Disorder of thyroid, unspecified; Z79.890 Hormone replacement therapy; Z79.1 Long term (current) use of non-steroidal anti-inflammatories (NSAID); Z79.899 Other long term (current) drug therapy; Z88.0 Allergy status to penicillin; Z88.2 Allergy status to sulfonamides; Z91.048 Other nonmedicinal substance allergy status; Z88.8 Allergy status to other drugs, medicaments and biological substances
CPT/HCPCS: J2001; J2704; G0121

== ENCOUNTER → 2020-05-27 | Outpatient (CLI) | payer MEDICARE, BC ==
--- NOTE | 2020-05-27 14:48 | BD ---
EXAMINATION TYPE: Axial Bone Density DATE OF EXAM: 05/27/2020 COMPARISON: NONE CLINICAL HISTORY: Height: 5 FT 34 IN Weight: 212 FRAX RISK QUESTIONS: Alcohol (3 or more units per day): NO Family History (Parent hip fracture): NO Glucocorticoids (More than 3mos): NO (Ex: prednisone, prednisolone, methylprednisolone, dexamethasone, and hydrocortisone). History of Fracture in Adulthood: YES Secondary Osteoporosis: 1. Type 1 Diabetes: NO 2. Hyperthyroidism: NO 3. Menopause before 45: NO 4. Malnutrition: NO 5. Chronic liver disease: NO Rheumatoid Arthritis: NO Current Tobacco Use: NO RISK FACTORS HISTORY OF: Family History of Osteoporosis: YES Active: NO Diet low in dairy products/other sources of calcium: NO Postmenopausal woman: AGE 51 Lost more than 2 inches in height since high school: YES MEDICATIONS: Thyroid Medications: YES Which medication: SYNTHROID How Lon YEARS Additional Medications: SYNTHROID, LOSARTAN, MICROZIDE, PRILOSEC, LOPRESSOR, Additional History: EXAM MEASUREMENTS: Bone mineral densitometry was performed using the [employer] System. Bone mineral density as measured about the Lumbar spine is: ----- L1-L4(G/cm2): 1.152 T Score Values are as follows: ----- L2: -1.1 ----- L3: -0.8 ----- L4: 2.0 ----- L1-L4: -0.2 Bone mineral density has: INCREASED 4.3 % since study of: 2016 Bone mineral density about the R hip (g/cm2): 0.786 Bone mineral density about the L hip (g/cm2): 0.799 T Score values are as follows: -----R Neck: -1.8 -----L Neck: -1.7 -----R Total: -1.5 -----L Total: -1.2 Bone mineral density has: DECREASED -1.9 % since study of: 2016 IMPRESSION: Osteopenia NOTE: T-SCORE=SD OF THE YOUNG ADULT MEAN.
== END | disposition home or self-care (01) ==
LOC: RADBDWWP 13:15
PROVIDERS: ATTEND Internal Medicine
DX: M85.80 Other specified disorders of bone density and structure, unspecified site (principal)
CPT/HCPCS: 77080

== ENCOUNTER → 2020-06-09 | Outpatient (CLI) | payer MEDICARE, BC ==
--- NOTE | 2020-06-11 14:00 | MM ---
Reason for exam: screening (asymptomatic). Last mammogram was performed 2 years and 9 months ago. History: Patient is postmenopausal. Family history of breast cancer in sister at age 73 and breast cancer in maternal aunt at age 74. Benign stereotactic core biopsy of the right breast, December 20, 2001. Core biopsy of the right breast. Physical Findings: A clinical breast exam by your physician is recommended on an annual basis and results should be correlated with mammographic findings. MG 3D Screening Mammo W/Cad Bilateral CC and MLO view(s) were taken. Prior study comparison: September 11, 2017, bilateral MG 3d screening mammo w/cad. March 02, 2016, bilateral MG 3d screening mammo w/cad. There are scattered fibroglandular densities. Previous mammotome biopsy in the right breast. No significant changes when compared with prior studies. ASSESSMENT: Benign, BI-RAD 2 RECOMMENDATION: Routine screening mammogram of both breasts in 1 year.
== END | disposition home or self-care (01) ==
LOC: RADMAMWWP 09:39
PROVIDERS: ATTEND Internal Medicine
DX: Z12.31 Encounter for screening mammogram for malignant neoplasm of breast (principal); Z80.3 Family history of malignant neoplasm of breast
CPT/HCPCS: 77063; 77067

== ENCOUNTER → 2020-12-09 | Outpatient (CLI) | payer MEDICARE, BC | END | disposition home or self-care (01) | LOC: LABWHC1 16:32 | PROVIDERS: ATTEND Internal Medicine | DX: U07.1 COVID-19 (principal) | CPT/HCPCS: U0003; C9803 ==

== ENCOUNTER → 2021-01-19 | Outpatient (CLI) | payer MEDICARE, BC ==
--- NOTE | 2021-01-19 15:31 | CT ---
EXAMINATION TYPE: CT angio chest DATE OF EXAM: 01/19/2021 COMPARISON: Radiograph same day HISTORY: 70-year-old female Mid to Left sided chest pain with shortness of breath for 6 weeks post CO VID. TECHNIQUE: Contiguous axial scanning of the chest performed with IV Contrast, patient injected with 1 00 mL of Isovue 370. Coronal/sagittal MIP reconstructions performed. CT DLP: 456.6 mGycm Automated exposure control for dose reduction was used. FINDINGS: Heart normal size without pericardial effusion. LAD coronary artery calcifications are present. Aorta normal caliber with bovine configuration to the aortic arch. No thoracic lymphadenopathy by CT size criteria. Borderline suboptimal opacification of the pulmonary system. No definite pulmonary embolus. Strandy atelectasis in the left lower lobe. No consolidation or pleural effusion. There is a moderate size hiatal hernia involving approximately half of the stomach. There is some flu id within the distal half of the esophagus. Partially visualized left-sided colonic diverticulosis. Bones: Degenerative change of both shoulders. Loss of the subacromial space on the right may reflect a chronic full-thickness rotator cuff tear. Accentuated mid thoracic kyphosis. Moderate to advanced degenerative disc disease lower thoracic spine. IMPRESSION: 1. BORDERLINE SUBOPTIMAL CONTRAST BOLUS. NO DEFINITE PULMONARY EMBOLUS. 2. MODERATE-SIZED HIATAL HERNIA INVOLVING APPROXIMATELY HALF OF THE STOMACH. FLUID IN THE DISTAL HALF OF THE ESOPHAGUS SUGGESTS GASTROESOPHAGEAL REFLUX DISEASE. 3. SOME STRANDY ATELECTASIS AT THE LEFT BASE. LAD CORONARY ARTERY CALCIFICATIONS.
--- NOTE | 2021-01-19 16:23 | XR ---
EXAMINATION TYPE: XR chest 2V DATE OF EXAM: 01/19/2021 COMPARISON: CT chest same date, chest x-ray 07/01/2016 HISTORY: Covid still shortness of breath TECHNIQUE: Frontal and lateral views of the chest are obtained. FINDINGS: Low lung volumes. Heart size is within normal limits. Atherosclerotic aorta.No pleural eff usion, focal consolidation or pneumothorax. Minimal bibasilar atelectasis or scarring. Degenerative c hanges of the thoracic spine. Accentuated kyphosis of the thoracic spine. IMPRESSION: 1. No acute pulmonary disease. Minimal bibasilar atelectasis or scarring.
== END | disposition home or self-care (01) ==
LOC: RADCTMAIN 13:45
PROVIDERS: ATTEND Internal Medicine Geriatric Medicine
DX: U07.1 COVID-19 (principal); K44.9 Diaphragmatic hernia without obstruction or gangrene; I25.10 Atherosclerotic heart disease of native coronary artery without angina pectoris
CPT/HCPCS: 71046; 71275; Q9967

== ENCOUNTER → 2021-03-16 | Outpatient (CLI) | payer MEDICARE, BC ==
--- NOTE | 2021-03-16 09:16 | P.PAINCN ---
History of Present Illness - Reason for Consult Consult date: 03/16/21 - History of Present Illness This is a 70 year-old patient referred by Dr. Dickson with a chief complaint of chronic pain in the neck and shoulders and left arm. He had this pain for quite some time without any significant injury. Her left shoulder is the worst, has constant numbness and tingling in her left upper extremity into her left hand (index, ring, middle finger). She also endorses very stiff and sore neck. Pain is described as sharp stabbing and aching and constant throughout the day. Pain is worse with twisting of the head and lying down. Currently a 8 out of 10, at its worst a 10 and 10, at best 5 out of 10. Terms of management she is been seeing a chiropractor for many years. She has done massage. In terms medication she has tried Aleve and recently finished a Medrol Dosepak with only one week of relief. As her overall health she recently had COVID19 and is still recovering from that in terms of pain and loss of energy. She wonders if significant coughing that she had during the disease process causing her to have neck pain as well. She is also scheduled for a stress test in March 28 ensure that her cardiac function is adequate given her recent lack of energy and infection with Covid. Mentions some reactions to steroids in the past including flushing of heart racing (oral steroids, knee injection). Patient denies adverse drug effects from medications. Patient also denies new- onset weakness, bowel/bladder incontinence, or any other signs or symptoms of cauda equina syndrome. There are no signs of acute intoxication, and no indications of medication diversion or overuse. In addition to above, 13-point review of systems is also negative for chest pain, shortness of breath, changes in vision, changes in hearing, new onset weakness, abdominal pain, diarrhea, extreme fatigue, malaise, fever, skin changes, homicidal or suicidal ideation, or bowel or bladder incontinence. Physical exam: Vital Signs: Reviewed in EMR GENERAL: Well appearing, in no acute distress PSYCH: Mood and affect is appropriate. Awake, alert, and oriented SKIN: Skin color, texture, turgor normal, no rashes or lesions HEENT: Normocephalic, atraumatic. EOM intact CV: No pedal edema RESP: Respirations are unlabored, no audible wheezing GI: Abdomen non-distended MUSCULOSKELETAL: Bilateral upper and lower extremity strength is normal and symmetric. No atrophy or tone abnormalities are noted. Neck: The patient over cervical paraspinal muscles. Positive facet loading bilaterally. Negative Spurling sign bilaterally. Range of motion is intact with some pain. Strength is 3/5 on shoulder flexion and wrist extension. Reflexes intact bilaterally with no Yrn sign. NEUR: Bilateral upper and lower extremity coordination and muscle stretch reflexes are physiologic and symmetric. Negative clonus. No loss of sensation is noted. Cranial nerves are grossly intact. Imaging: Cervical MRI C4-C5 there is a disc osteophyte complex compressing on the ventral cord ligame ntum flavum thickening and moderate stenosis of the central canal. Severe bilateral neural foraminal stenosis at this level due to uncovertebral arthropathy. C5-C6 there is a disc osteophyte complex compressing on the ventral cord with moderate stenosis and moderate to severe bilateral neuroforaminal narrowing. C6-C7 there is no significant spinal canal stenosis with moderate left and moderate right neural foraminal narrowing. At C7-T1 there is no stenosis. Assessment: 1. Cervical spinal canal stenosis 2. Cervical spondylosis Plan: - The patient would be a good candidate for C7-T1 epidural steroid injection of the left paramedian approach. At this time patient would like to hold off on scheduling any injections until after stress test. She will call as needed. His injections do not work I do believe she also has cervical facet joint arthritis and could benefit from medial branch blocks and possible radio frequency ablation in the future. I spent 50 minutes on patient care today. The time was used to review medical records including relevant urine studies and prescription history (MAPs), review of the available imaging, evaluation and examination the patient, coordination of care at the medical staff and if applicable referring physicians, as well as creation of the medical record. Past Medical History Past Medical History: GERD/Reflux, Hypertension, Osteoarthritis (OA), Thyroid Disorder Additional Past Medical History / Comment(s): having pain to neck and shoulders with numbness to left arm and fingers, also currently having increased SOB and fatigue, following with Dr Sanabria stress test and echo scheduled on Apr 12, had covid infection November 2020,had prednisone ,hx hiatal hernia,varicose veins History of Any Multi-Drug Resistant Organisms: None Reported Past Surgical History: Joint Replacement, Tonsillectomy Additional Past Surgical History / Comment(s): corrective eye surgery for crossed eye, TOTAL LEFT KNEE Past Anesthesia/Blood Transfusion Reactions: Previous Problems w/ Anesthesia, Motion Sickness, Postoperative Nausea & Vomiting (PONV) Additional Past Anesthesia/Blood Transfusion Reaction / Comm: headache with an esthesia,no hx blood transfusion Smoking Status: Never smoker - Past Family History Sister(s) Family Medical History: Cancer Additional Family Medical History / Comment(s): breast Mother Family Medical History: No Reported History Father Family Medical History: Myocardial Infarction (ID) Additional Family Medical History / Comment(s): at age 60 Medications and Allergies Home Medications Medication Instructions Recorded Confirmed Type Acetaminophen Tab [Tylenol] 1,000 mg PO BID 09/29/15 03/15/21 History Levothyroxine Sodium [Synthroid] 112 mcg PO Q48H 09/29/15 03/15/21 History Metoprolol Tartrate [Lopressor] 50 mg PO HS 09/29/15 03/15/21 History Multivit-Min/FA/Lycopen/Lutein 1 tab PO DAILY 09/29/15 03/15/21 History [Centrum Silver Tablet] Naproxen Sodium [Aleve] 440 mg PO QAM 09/29/15 03/15/21 History Levothyroxine Sodium [Synthroid] 168 mcg PO Q48H 01/10/17 03/15/21 History Systane Ultra 1 drop BOTH EYES QID 01/10/17 03/15/21 History Losartan [Cozaar] 50 mg PO DAILY 03/15/21 03/15/21 History Omeprazole 20 mg PO DAILY 03/15/21 03/15/21 History Allergies Allergy/AdvReac Type Severity Reaction Status Date / Time adhesive Allergy skin Verified 03/15/21 14:10 redness and itching cyclosporine [From Restasis] Allergy "made me Verified 03/15/21 14:10 feel like I was drunk" Penicillins Allergy Anaphylaxis Verified 03/15/21 14:10 Sulfa (Sulfonamide Allergy Anaphylaxis Verified 03/15/21 14:10 Antibiotics) PQRS Measure Charge Sheet PQRS Narrative: Smoking Status Never smoker Hx Alcohol Use (MH) No Home Medications: Ambulatory Orders Acetaminophen Tab [Tylenol] 1,000 mg PO BID 09/29/15 Levothyroxine Sodium [Synthroid] 112 mcg PO Q48H 09/29/15 Metoprolol Tartrate [Lopressor] 50 mg PO HS 09/29/15 Multivit-Min/FA/Lycopen/Lutein [Centrum Silver Tablet] 1 tab PO DAILY 09/29/15 Naproxen Sodium [Aleve] 440 mg PO QAM 09/29/15 Levothyroxine Sodium [Synthroid] 168 mcg PO Q48H 01/10/17 Systane Ultra 1 drop BOTH EYES QID 01/10/17 Losartan [Cozaar] 50 mg PO DAILY 03/15/21 Omeprazole 20 mg PO DAILY 03/15/21
[2021-03-16 09:19] VITALS: BP 201/108; PULSE 82; RESP 22; TEMP 98.6
== END ==
LOC: PNWHC3 08:41
PROVIDERS: ATTEND Anesthesiology
DX: M47.812 Spondylosis without myelopathy or radiculopathy, cervical region (principal); M48.02 Spinal stenosis, cervical region; I10 Essential (primary) hypertension; M19.90 Unspecified osteoarthritis, unspecified site; Z79.899 Other long term (current) drug therapy; Z91.048 Other nonmedicinal substance allergy status; Z88.0 Allergy status to penicillin; Z88.1 Allergy status to other antibiotic agents
CPT/HCPCS: 99211

== ENCOUNTER 2021-06-10 05:58 | Day surgery (SDC) | payer MEDICARE, BC ==
[2021-06-09 11:58] VITALS: BMI 38.9
[2021-06-10] MEDS ORDERED: SODIUM CHLORIDE 0.9% 1,000 ML IV ONE (06:19)
[2021-06-10] MEDS: SODIUM CHLORIDE 0.9% 1,000 ML in EMPTY BAG 1 BAG IV SCH ×2 (06:30→18:04)
[2021-06-10] MEDS ORDERED: LOSARTAN 50 MG TAB PO ONE (06:33)
[2021-06-10] MEDS ORDERED: ALPRAZolam 0.5 MG TAB ONE (06:35)
[2021-06-10] MEDS ORDERED: ATORVASTATIN 80 MG TAB PO STA (06:40)
[2021-06-10] MEDS ORDERED: ASPIRIN 325 MG TAB PO STA (06:40)
[2021-06-10] MEDS ORDERED: NITROGLYCERIN SL TABS 0.4 MG TAB SUBLINGUAL PRN ×2 (06:40→09:56)
[2021-06-10] MEDS ORDERED: ALPRAZolam 0.5 MG TAB PO PRN (06:40)
[2021-06-10] MEDS ORDERED: ALPRAZolam 0.25 MG TAB PO PRN ×2 (06:40→09:56)
[2021-06-10 07:00] LABS: Basophils # (A) 0.1 k/uL (0-0.2); Basophils % (A) 1 %; Eosinophils # (A) 0.2 k/uL (0-0.7); Eosinophils % (A) 3 %; HCT 41.2 % (34.0-46.0); HGB 13.3 gm/dL (11.4-16.0); Lymphocytes # (A) 1.1 k/uL (1.0-4.8); Lymphocytes % (A) 13 %; MCH 27.8 pg (25.0-35.0); MCHC 32.3 g/dL (31.0-37.0); Mean Platelet Volume 7.4; Monocytes # (A) 0.4 k/uL (0-1.0); Monocytes % (A) 5 %; Neutrophils # (A) 6.1 k/uL (1.3-7.7); Neutrophils % (A) 77 %; Platelet Count 429 k/uL (150-450); RBC 4.79 m/uL (3.80-5.40); RDW 14.4 % (11.5-15.5); WBC 7.9 k/uL (3.8-10.6)
[2021-06-10] MEDS ORDERED: VERAPAMIL 2.5 MG/ML 2 ML AMP ONE (07:25)
[2021-06-10] MEDS ORDERED: fentaNYL (PF) 50 MCG/ML 2 ML AMP ONE (07:25)
[2021-06-10] MEDS ORDERED: LIDOCAINE 1% INJ 10MG/ML (20 ML MDV) ONE (07:25)
[2021-06-10 07:31] LABS: African American GFR (CKD) >90 (>60 ml/min/1.73 sqM); Anion Gap 9 mmol/L; Blood Urea Nitrogen 18 mg/dL (7-17); Calcium 10.3 mg/dL (8.4-10.2); Carbon Dioxide 21 mmol/L (22-30); Chloride 101 mmol/L (98-107); Glucose 106 mg/dL (74-99); Non-African American GFR(CKD) 78 (>60 ml/min/1.73 sqM); Sodium 131 mmol/L (137-145)
[2021-06-10 07:37] LABS: Potassium 5.2 mmol/L (3.5-5.1)
[2021-06-10] MEDS ORDERED: fentaNYL (PF) 50 MCG/ML 2 ML AMP IV ONE (07:40)
[2021-06-10] MEDS ORDERED: LIDOCAINE 1% INJ 10MG/ML (20 ML MDV) SQ ONE ×2 (07:43→08:06)
[2021-06-10] MEDS ORDERED: VERAPAMIL SYRINGE (5 MG/10 ML) INTRAARTER ONE (07:48)
[2021-06-10] MEDS ORDERED: MIDAZOLAM 2 MG/2 ML VIAL IV ONE (07:51)
[2021-06-10] MEDS ORDERED: HEPARIN SODIUM 1,000 UN/ML (10ML VL) ONE (08:08)
[2021-06-10] MEDS ORDERED: HEPARIN SODIUM 1,000 UN/ML (10ML VL) IV ONE (08:10)
[2021-06-10] MEDS ORDERED: CLOPIDOGREL 75 MG TAB ONE (08:16)
[2021-06-10] MEDS ORDERED: CLOPIDOGREL 75 MG TAB PO ONE (08:20)
[2021-06-10] MEDS ORDERED: IOPAMIDOL-370 125ML BTL INJ ONE (08:26)
[2021-06-10] MEDS ORDERED: NITROGLYCERIN 1000MCG/10ML SYRINGE INTRACORON ONE (08:44)
[2021-06-10] MEDS ORDERED: IOPAMIDOL-370 100ML BTL INJ ONE ×2 (08:50→08:56)
[2021-06-10] MEDS ORDERED: MAG HYDROX/AL HYDROX/SIMETH 30 ML CUP PO PRN (09:56)
[2021-06-10] MEDS ORDERED: HYDROcodone/APAP 5-325MG 1 EACH TAB PO PRN (09:56)
[2021-06-10] MEDS ORDERED: HYDROmorphone 0.5 MG/0.5 ML SYRINGE IVP PRN (09:56)
[2021-06-10] MEDS ORDERED: ZOLPIDEM 5 MG TAB PO PRN (09:56)
[2021-06-10] MEDS ORDERED: RX INFO: IV CONTRAST WAS GIVEN 1 EACH MISC MISCELLANE PRN (09:56)
[2021-06-10] MEDS ORDERED: ATROPINE SULFATE 0.1 MG/ML 10ML SYRINGE IV PRN (09:56)
--- NOTE | 2021-06-10 10:10 | CC ---
CARDIAC CATHETERIZATION REPORT Mrs. Asencio is a 70-year-old female known history of hypertension, hyperlipidemia, who has been complaining of progressive symptoms of dyspnea on exertion and chest discomfort. She had an abnormal myocardial perfusion imaging with anterior wall ischemia. In view of that, recommendation was made regarding cardiac catheterization, the procedure as well as the risks and the complications were discussed with the patient who is in full understanding and agreement. PROCEDURE DETAILS: Patient was brought to the slab lifting engineer in a fasting semisedated state after receiving fentanyl and Benadryl and achieving moderate conscious sedated state. Using Xylocaine anesthesia and Seldinger technique a 6-Danish sheath was introduced in the right radial artery. Multiple attempts to advance the wire into the ascending aorta were unsuccessful because of severe tortuosity. In view of that, using Xylocaine anesthesia and Seldinger technique, a 6-Danish sheath introduced in the right femoral artery. Selective right and left coronary angiography performed using 6-Danish 4 bend, right and left Robel catheter. Multiple views of the coronary arteries including hemiaxial views were obtained. Following that, a 6-Danish tight pigtail catheter was introduced into the left ventricle and left ventricular end-diastolic pressure was calculated. Following that, catheter was removed. Images were reviewed. FINDINGS: FLUOROSCOPY: There was severe calcification involving the left anterior descending coronary artery. LEFT MAIN: This is a large-sized vessel bifurcating into left circumflex, left anterior descending coronary artery. Left main coronary artery has no evidence of high- grade stenosis. LEFT ANTERIOR DESCENDING ARTERY: This is a large-sized vessel reaching to the apex, giving rise to two diagonal branches. The second one is moderate in caliber. The proximal LAD is heavily calcified, has a 95-99 percent stenosis, the rest of the LAD has no high-grade stenosis. The diagonal branch has 60-70% stenosis. The rest of the vessel has no high-grade stenosis. LEFT CIRCUMFLEX: This is a nondominant vessel giving rise to 2 obtuse marginal branches. The first one is large in caliber. The left circumflex as well as branches have no evidence of high-grade stenosis. RIGHT CORONARY ARTERY: This is a large dominant vessel bifurcating into PDA and posterolateral segment and branches, has a superior takeoff. The right coronary artery has mild intimal disease of 20% in the proximal mid segment without any evidence of high-grade stenosis. LEFT VENTRICULOGRAM: Left ventriculogram was not performed. HEMODYNAMICS: There was no gradient across the aortic valve. The left ventricular end- diastolic pressure was 10-12 mm of Hg. CONCLUSION: 1. Heavily calcified proximal LAD. 2. Critical stenosis in the proximal LAD with moderate to significant disease in the diagonal branch. 3. Mild disease in the right coronary artery. RECOMMENDATIONS: In view of findings and anatomy, I recommend proceeding with angioplasty and stenting of the left anterior descending artery. The procedure as well as the risks and the complications were discussed with the patient who is in full understanding and agreement. XUAN / RICHY: [id number] / MTDD
--- NOTE | 2021-06-10 10:13 | LTR ---
DATE OF SERVICE: 06/10/[address] Kennedy: I had the pleasure of performing cardiac catheterization, coronary angioplasty and stenting on Mrs. Asencio at [facility] on June 10 and a full copy of procedure note will be forwarded to you. In brief, she was found to have significant disease in a heavily calcified proximal LAD and underwent successful stenting of that vessel. I am hopeful that this procedure will stabilize her status. Thank you again for allowing me to participate in her care. Please feel free to call for any questions. Sincerely yours, MMFLAQUITOL / IJN: [id number] /
--- NOTE | 2021-06-10 10:13 | PTCA ---
PERCUTANEOUSTRANS CORORONARY ANGIOGRAPHY Mrs. Asencio is a 70-year-old female with history of hypertension, hyperlipidemia, who presented with symptoms of progressive dyspnea and chest discomfort, had an abnormal myocardial perfusion imaging, underwent cardiac catheterization and was found to have critical stenosis involving the proximal LAD. In view of that, recommendation was made regarding angioplasty and stenting, the procedure as well as the risks and the complications were discussed with the patient who is in full understanding and agreement. PROCEDURE: A 6-Maced[place] FR4 guiding catheter was introduced into the system. After cannulating the left main, a 0.014 balanced medium weight J-wire was advanced and positioned in the distal LAD. Subsequently a 2.75 x 12 mm NC Trek balloon was advanced and 2 inflations in the LAD were done at maximum of 8 atmospheres. Following that, the balloon was removed and 3.25 x 15 mm Xience SkyPoint stent was advanced, deployed and was dilated at 16 atmospheres. Following that, the stent was deployed and postdilated to 16 atmospheres. Following that, a 3.5 x 12 mm NC Trek balloon was advanced and one inflation at 12 atmospheres was done. Following that, the balloon was removed and a 3.5 x 15 Xience SkyPoint stent was deployed distal to the first one and post- dilated at 16 atmospheres. After removing the balloon, an IVUS [place] [facility] catheter was introduced. Images were obtained. Following that, 3.5 x 12 mm NC Trek balloon was advanced and 2 inflations were done at maximum of 12 atmospheres. After the last inflation, after appropriate wait, the balloon and the guidewire were withdrawn back in the guiding catheter. Images were obtained, repeated. Those images reveal stable successful stenting. At that point, the guiding catheter, catheter, the balloon and the guidewire were removed. The sheath was removed. Hemostasis was obtained with deployment of an Angio-Seal on the right femoral artery and a TR band in the right radial artery. Of note, the patient had chest discomfort and EKG changes with the inflations that resolved at the end procedure and she received 7000 units of intravenous heparin as well as intra-arterial verapamil and an oral loading dose of clopidogrel. RESULTS: Successful stenting of the proximal LAD in a heavily calcified segment with reduction of stenosis from 90% to 0%. RECOMMENDATIONS: Patient will be continued on aspirin, Plavix and statin. The importance of dual antiplatelet treatment was discussed with the patient and her family and they are in full understanding and agreement. Duration of sedation is 79 minutes. MMFLAQUITOL / COYN: [id number] / MTDD
[2021-06-10] MEDS ORDERED: lisinopriL 20 MG TAB PO STA (10:23)
[2021-06-10] MEDS ORDERED: METOPROLOL TARTRATE 25 MG TAB PO STA (10:24)
[2021-06-10] MEDS: SODIUM CHLORIDE 0.9% 1,000 ML IV SCH ×2 (10:37→18:04)
[2021-06-10] MEDS: ACETAMINOPHEN TAB 325 MG TAB PO PRN (15:38)
[2021-06-10] MEDS: METOPROLOL TARTRATE 25 MG TAB PO SCH (20:46)
[2021-06-10] MEDS ORDERED: ATORVASTATIN 20 MG TAB PO SCH (21:00)
[2021-06-11] MEDS: SODIUM CHLORIDE 0.9% 1,000 ML in EMPTY BAG 1 BAG IV SCH (01:42)
[2021-06-11] MEDS: ACETAMINOPHEN TAB 325 MG TAB PO PRN (06:16)
[2021-06-11] MEDS ORDERED: LEVOTHYROXINE 112 MCG TAB PO SCH (06:30)
[2021-06-11] MEDS ORDERED: HEPARIN SODIUM,PORCINE 10,000 UNIT in SODIUM CHLORIDE 0.9% 1,000 ML IRRIGATION PRN (07:00)
[2021-06-11] MEDS ORDERED: HEPARIN SODIUM,PORCINE 2,500 UNIT in SODIUM CHLORIDE 0.9% 250 ML IRRIGATION PRN (07:00)
[2021-06-11 07:18] LABS: African American GFR (CKD) >90 (>60 ml/min/1.73 sqM); Anion Gap 10 mmol/L; Blood Urea Nitrogen 16 mg/dL (7-17); Calcium 9.5 mg/dL (8.4-10.2); Carbon Dioxide 22 mmol/L (22-30); Chloride 101 mmol/L (98-107); Glucose 93 mg/dL (74-99); Non-African American GFR(CKD) 90 (>60 ml/min/1.73 sqM); Potassium 4.3 mmol/L (3.5-5.1); Sodium 133 mmol/L (137-145)
[2021-06-11 07:33] VITALS: BP 144/83; PULSE 72; RESP 16; TEMP 98.3
[2021-06-11] MEDS: METOPROLOL TARTRATE 25 MG TAB PO SCH (07:33)
[2021-06-11] MEDS: PANTOPRAZOLE 40 MG TABLET PO SCH ×2 (07:33→07:39)
[2021-06-11] MEDS ORDERED: EZETIMIBE 10 MG TAB PO SCH (09:00)
[2021-06-11] MEDS ORDERED: LOSARTAN 50 MG TAB PO SCH (09:00)
[2021-06-11] MEDS ORDERED: CLOPIDOGREL 75 MG TAB PO SCH (09:00)
[2021-06-11] MEDS ORDERED: ASPIRIN 81 MG PO SCH (09:00)
--- NOTE | 2021-06-11 09:18 | PN ---
PROGRESS NOTE Mrs. Asencio is a 70-year-old female with known history of hypertension, hyperlipidemia, who presented with symptoms of progressive dyspnea and fatigue, had an abnormal myocardial perfusion imaging, underwent cardiac catheterization and was found to have severely calcified proximal LAD with severe stenosis, underwent stenting of the LAD using 2 stents. She has a lesion in the first diagonal branch that is moderate in caliber. She is feeling well this morning. She is denying any chest pain. No dizziness. No palpitation. No nausea. She has been ambulating in the room without difficulty. Continues to be on aspirin once a day, Plavix 75 mg daily, Zetia 10 mg daily, atorvastatin 20 mg daily, losartan 50 mg daily, metoprolol tartrate 25 mg twice a day. PHYSICAL EXAMINATION: Blood pressure running in the 140s with a heart rate in 70s. Lungs: Clear. Heart regular rate and rhythm, S1, S2. No S3. No rub. Abdomen: Soft, nontender. Right radial pulse intact. LAB DATA: Revealed BUN and creatinine 16 and 0.68, potassium 4.3. EKG revealed no acute changes. IMPRESSION: 1. Status post stenting of the proximal LAD in a calcified segment. 2. Hypertension. 3. Hyperlipidemia. RECOMMENDATIONS: Patient will be discharged home today and followed as an outpatient. She will follow her blood pressure and depending on the trend, further adjustment of her medical regimen will be done. We will continue to follow her symptoms, make a decision if intervention on the diagonal branch is needed. MMODL / IJN: [id number] /
== END 2021-06-11 11:06 | disposition home or self-care (01) ==
LOC: CATHCVL 05:58 → 6NMEDSUR 09:01 → CATHCVL 06-11 11:06
PROVIDERS: ATTEND Internal Medicine Interventional Cardiology
DX: I25.10 Atherosclerotic heart disease of native coronary artery without angina pectoris (principal); I10 Essential (primary) hypertension; E78.5 Hyperlipidemia, unspecified; Z95.5 Presence of coronary angioplasty implant and graft; Z20.822 Contact with and (suspected) exposure to COVID-19
CPT/HCPCS: 93458; 80048 ×2; 85025; 87635; C9600; C1769 ×3; C1760; C1887; C1894 ×2; C1725 ×3; C1753; C1874; J2250; J2001; J3010; J1644; Q9967 ×2

== ENCOUNTER → 2021-11-03 | Outpatient (CLI) | payer MEDICARE, BC ==
[2021-11-03 20:09] LABS: ALT 32 U/L (8-44); AST 23 U/L (13-35); African American GFR (CKD) 84.2 (60.0-200.0); Albumin 4.4 g/dL (3.8-4.9); Albumin/Globulin Ratio 1.52 (1.60-3.17); Alkaline Phosphatase 125 U/L (41-126); BUN/Creat Ratio 22.95 Ratio (12.00-20.00); Blood Urea Nitrogen 18.8 mg/dL (9.0-27.0); Calcium 10.1 mg/dL (8.7-10.3); Carbon Dioxide 19.3 mmol/L (20.0-27.5); Chloride 98 mmol/L (96-109); Globulin 2.9 g/dL (1.6-3.3); Glucose 87 mg/dL (70-110); LDL Cholesterol,Calculated 100.9 mg/dL (0.0-131.0); Non-African American GFR(CKD) 72.6 (60.0-200.0); Potassium 4.6 mmol/L (3.5-5.5); Sodium 133 mmol/L (135-145); Total Protein 7.4 g/dL (6.2-8.2)
== END | disposition home or self-care (01) ==
LOC: LABWHC1 08:25
PROVIDERS: ATTEND Internal Medicine Interventional Cardiology
DX: E78.2 Mixed hyperlipidemia (principal)
CPT/HCPCS: 36415; 80053; 80061

== ENCOUNTER → 2022-01-16 | Outpatient (CLI) | payer MEDICARE, BC ==
--- NOTE | 2022-01-17 10:43 | US ---
EXAMINATION TYPE: US thyroid st tissue head/neck DATE OF EXAM: 01/16/2022 COMPARISON: NONE CLINICAL HISTORY: 71-year-old female E04.1 THYROID NODULE. TECHNIQUE: Multiple sonographic images of the thyroid gland are obtained. FINDINGS: GLAND SIZE: Right Lobe: 2.0 x 0.9 x 0.8 cm Overall Parenchyma: heterogenous Left Lobe: 1.7 x 0.7 x 0.7 cm Overall Parenchyma: heterogeneous Isthmus Thickness: 0.12 cm NODULES RIGHT: # of nodules measured on right: 0 LEFT: # of nodules measured on left: 0 ISTHMUS: # of nodules measured in the isthmus: 0 Bilateral neck scanned, no evidence of lymphadenopathy. Marking Machine Tender notes: Thyroid gland is small in appearance IMPRESSION: Small heterogeneous thyroid gland, possible chronic hypothyroidism. No discrete nodules.
== END | disposition home or self-care (01) ==
LOC: RADUSWWP 16:48
PROVIDERS: ATTEND Internal Medicine Geriatric Medicine
DX: E07.89 Other specified disorders of thyroid (principal)
CPT/HCPCS: 76536

== ENCOUNTER → 2022-06-22 | Outpatient (CLI) | payer MEDICARE, BC ==
[2022-06-22 15:26] LABS: ALT 23 U/L (8-44); AST 16 U/L (13-35); African American GFR (CKD) 86.4 (60.0-200.0); Albumin 4.3 g/dL (3.8-4.9); Alkaline Phosphatase 123 U/L (41-126); Blood Urea Nitrogen 16.1 mg/dL (9.0-27.0); Calcium 9.7 mg/dL (8.7-10.3); Carbon Dioxide 24.8 mmol/L (20.0-27.5); Chloride 100 mmol/L (96-109); Chol/HDL Ratio 3.24 Ratio; Globulin 2.9 g/dL (1.6-3.3); Glucose 92 mg/dL (70-110); LDL Cholesterol,Calculated 100.2 mg/dL (0.0-131.0); Non-African American GFR(CKD) 74.6 (60.0-200.0); Potassium 4.8 mmol/L (3.5-5.5); Sodium 135 mmol/L (135-145); Total Protein 7.2 g/dL (6.2-8.2)
== END | disposition home or self-care (01) ==
LOC: LABWHC1 09:25
PROVIDERS: ATTEND Internal Medicine Interventional Cardiology
DX: I10 Essential (primary) hypertension (principal); E78.2 Mixed hyperlipidemia
CPT/HCPCS: 36415; 80053; 80061

== ENCOUNTER 2023-12-27 01:08 | Inpatient (IN) | payer MEDICARE, BC ==
--- NOTE | 2023-12-27 01:18 | ED ---
Chest Pain HPI - General Chief Complaint: Chest Pain Stated Complaint: Chest pressure Time Seen by Provider: 12/27/23 01:11 Source: patient, EMS Mode of arrival: EMS Limitations: no limitations - History of Present Illness Initial Comments: This patient is a 73-year-old woman who presents for evaluation of chest pain that came on approximately 1 hour ago while she was in bed trying to sleep. The patient noticed that she had pain and her breathing did not feel right. Longer this 1 on the worst she felt and she started feeling shaky as well. EMS was called and administered aspirin and nitroglycerin. The patient states she is feeling little better but not back to normal. She states she had similar symptoms prior to having had stents placed. MD Complaint: chest pain Onset/Timin -: hour(s) Onset: during rest Pain Location: left chest Pain Radiation: none Severity: moderate Quality: heaviness Consistency: constant Improves With: nothing Worsens With: nothing Anginal Symptoms: dyspnea Treatments Prior to Arrival: none - Related Data Home Medications Medication Instructions Recorded Confirmed Acetaminophen Tab [Tylenol] 1,000 mg PO BID@1400,1930 09/29/15 12/27/23 Levothyroxine Sodium [Synthroid] 112 mcg PO MOWEFR@0630 09/29/15 12/27/23 Metoprolol Tartrate [Lopressor] 50 mg PO HS 09/29/15 12/27/23 Multivit-Min/FA/Lycopen/Lutein 1 tab PO DAILY 09/29/15 12/27/23 [Centrum Silver Tablet] Levothyroxine Sodium [Synthroid] 56 mcg PO SUTUTHSA@0630 01/10/17 12/27/23 Omeprazole 20 mg PO DAILY 03/15/21 12/27/23 Aspirin EC [Ecotrin Low Dose] 81 mg PO DAILY@1900 12/27/23 12/27/23 Carboxymethylcellulos/Glycerin 2 drop BOTH EYES DAILY@1300 12/27/23 12/27/23 [Refresh Relieva 0.5-0.9% Drop] Cetirizine HCl [Zyrtec] 10 mg PO HS 12/27/23 12/27/23 Ezetimibe [Zetia] 10 mg PO DAILY@1900 12/27/23 12/27/23 Ibuprofen [Advil] 400 mg PO HS 12/27/23 12/27/23 Propylene Glycol/Peg 400 [Systane 2 drop BOTH EYES BID@0830,1930 12/27/23 12/27/23 Ultra 0.4-0.3% Eye Drp] Sodium Chloride 5% Ophth Soln 1 drops BOTH EYES HS 12/27/23 12/27/23 [Sony 128] Systane Nightime Lubricant 1 drop BOTH EYES HS 12/27/23 12/27/23 Previous Rx's Medication Instructions Recorded Atorvastatin [Lipitor] 20 mg PO HS #30 tab 12/28/23 Clopidogrel [Plavix] 75 mg PO DAILY #30 tab 12/28/23 Nitroglycerin Sl Tabs [Nitrostat] 0.4 mg SUBLINGUAL Q5M PRN #25 tab 12/28/23 ALPRAZolam [Xanax] 0.25 mg PO TID PRN #0 tab 12/31/23 Losartan [Cozaar] 50 mg PO BID #60 tab 12/31/23 Ondansetron [Zofran] 4 mg PO Q8HR PRN #20 tab 12/31/23 Allergies Allergy/AdvReac Type Severity Reaction Status Date / Time adhesive Allergy skin Verified 12/27/23 07:45 redness and itching cyclosporine [From Restasis] Allergy "made me Verified 12/27/23 07:45 feel like I was drunk" Penicillins Allergy Anaphylaxis Verified 12/27/23 07:45 Sulfa (Sulfonamide Allergy Anaphylaxis Verified 12/27/23 07:45 Antibiotics) Review of Systems ROS Statement: Those systems with pertinent positive or pertinent negative responses have been documented in the HPI. ROS Other: All systems not noted in ROS Statement are negative. Constitutional: Denies: fever, chills Respiratory: Reports: dyspnea. Denies: cough, wheezes Cardiovascular: Reports: chest pain. Denies: palpitations, orthopnea, edema, syncope Gastrointestinal: Denies: abdominal pain, nausea, vomiting, diarrhea Genitourinary: Denies: dysuria, hematuria Musculoskeletal: Denies: back pain Skin: Denies: rash Neurological: Denies: headache, weakness, numbness Psychiatric: Reports: anxiety EKG Findings - EKG Results: EKG: interpreted by ERMD, sinus rhythm (Rate 86 bpm), normal axis - Blocks, [place], Hypertrophy, ST Abn: AV and intraventricular conduction: right bundle branch block (fixed/intermittent, complete/incomplete) (Incomplete) Repolarization changes or abnormalities: nonspecific abnormality, ST segment, and/or T wave Past Medical History Past Medical History: GERD/Reflux, Hypertension, Osteoarthritis (OA), Thyroid Disorder Additional Past Medical History / Comment(s): having pain to neck and shoulders with numbness to left arm and fingers, having increased SOB and fatigue, had stress test and echo Mar 2021, had covid infection November 2020,,hx hiatal hernia,varicose veins History of Any Multi-Drug Resistant Organisms: None Reported Past Surgical History: Joint Replacement, Tonsillectomy Additional Past Surgical History / Comment(s): corrective eye surgery for crossed eye, TOTAL LEFT KNEE Past Anesthesia/Blood Transfusion Reactions: Previous Problems w/ Anesthesia, Motion Sickness, Postoperative Nausea & Vomiting (PONV) Additional Past Anesthesia/Blood Transfusion Reaction / Comment(s): headache with anesthesia,no hx blood transfusion, "Severe motion sickness" Past Psychological History: Anxiety Smoking Status: Never smoker Past Alcohol Use History: None Reported Past Drug Use History: None Reported - Past Family History Sister(s) Family Medical History: Cancer Additional Family Medical History / Comment(s): breast Mother Family Medical History: No Reported History Father Family Medical History: Myocardial Infarction ([place]) Additional Family Medical History / Comment(s): at age 60 General Exam Limitations: no limitations General appearance: alert, anxious Head exam: Present: atraumatic, normocephalic Eye exam: Present: normal appearance. Absent: scleral icterus, conjunctival injection ENT exam: Present: mucous membranes dry Neck exam: Present: normal inspection Respiratory exam: Present: normal lung sounds bilaterally. Absent: respiratory distress, wheezes, rales, rhonchi, stridor Cardiovascular Exam: Present: regular rate, normal rhythm, normal heart sounds. Absent: systolic murmur, diastolic murmur, rubs, gallop GI/Abdominal exam: Present: soft. Absent: distended, tenderness, guarding, rebound, rigid, mass Extremities exam: Present: normal inspection, normal capillary refill. Absent: pedal edema, calf tenderness Back exam: Present: normal inspection. Absent: CVA tenderness (R), CVA tenderness (L) Neurological exam: Present: alert Skin exam: Present: warm, dry, intact, normal color. Absent: rash Course Vital Signs 12/27/23 12/27/23 12/27/23 01:10 03:07 04:06 Temperature 97.8 F Pulse Rate 85 66 61 Pulse Rate [ Pulse Oximetery ] Respiratory 20 20 16 Rate Blood Pressure 155/115 171/79 174/83 Blood Pressure [Left Arm] O2 Sat by Pulse 97 98 98 Oximetry 12/27/23 12/27/23 12/27/23 04:32 06:12 09:04 Temperature Pulse Rate 67 64 Pulse Rate [ 65 Pulse Oximetery ] Respiratory 16 16 Rate Blood Pressure 165/85 170/82 Blood Pressure 137/75 [Left Arm] O2 Sat by Pulse 96 97 Oximetry 12/27/23 12/27/23 12/27/23 09:10 10:00 11:07 Temperature 98.1 F 97.9 F Pulse Rate 68 61 67 Pulse Rate [ Pulse Oximetery ] Respiratory 17 17 17 Rate Blood Pressure 198/97 188/89 196/98 Blood Pressure [Left Arm] O2 Sat by Pulse 96 96 97 Oximetry 12/27/23 12/27/23 12/27/23 11:45 11:46 12:00 Temperature Pulse Rate 64 64 65 Pulse Rate [ Pulse Oximetery ] Respiratory 20 17 17 Rate Blood Pressure 205/101 204/93 194/93 Blood Pressure [Left Arm] O2 Sat by Pulse 97 98 98 Oximetry 12/27/23 12/27/23 12/27/23 13:06 14:24 14:45 Temperature 98.1 F 98.0 F 97.8 F Pulse Rate 66 64 66 Pulse Rate [ Pulse Oximetery ] Respiratory 16 18 17 Rate Blood Pressure 154/78 154/93 183/90 Blood Pressure [Left Arm] O2 Sat by Pulse 96 96 97 Oximetry Chest Pain MDM - MDM The patient had chest x-ray that I interpreted as negative for acute infiltrate, pneumothorax, congestive heart failure Was pt. sent in by a medical professional or institution (, PA, ADVERTISING COPY WRITER, urgent care, hospital, or longterm...) When possible be specific @ -[No] Did you speak to anyone other than the patient for history (EMS, parent, family, police, friend...)? What history was obtained from this source @ -[No] Did you review nursing and triage notes (agree or disagree)? Why? @ -[I reviewed and agree with nursing and triage notes] Were old charts reviewed (outside hosp., previous admission, EMS record, old EKG, old radiological studies, urgent care reports/EKG's, longterm records)? Report findings @ -[No old charts were reviewed] Differential Diagnosis (chest pain, altered mental status, abdominal pain women, abdominal pain men, vaginal bleeding, weakness, fever, dyspnea, syncope, headache, dizziness, GI bleed, back pain, seizure, CVA, palpatations, mental health, musculoskeletal)? @ -[Differential Chest Pain: Stable Angina, Unstable Angina, STEMI, NSTEMI Aortic Dissection, Pneumothorax, Musculoskeletal, Esophageal Spasm GERD, Cholecystitis, Pancreatitis, Zoster, this is not meant to be an all-inclusive list. EKG interpreted by me (3pts min.). @ -[I interpreted as above] X-rays interpreted by me (1pt min.). @ -[I interpreted as above CT interpreted by me (1pt min.). @ -[None done] U/S interpreted by me (1pt. min.). @ -[None done] What testing was considered but not performed or refused? (CT, X-rays, U/S, labs)? Why? @ -[None] What meds were considered but not given or refused? Why? @ -[None] Did you discuss the management of the patient with other professionals (professionals i.e. , PA, ADVERTISING COPY WRITER, lab, RT, psych nurse, social service director, production scheduler, teacher, transit authority police officer, pillowcase maker)? Give summary @ -[Case discussed with admitting physician and treatment recommendations are incorporated Was smoking cessation discussed for >3mins.? @ -[No] Was critical care preformed (if so, how long)? @ -[No] Were there social determinants of health that impacted care today? How? (Homelessness, low income, unemployed, alcoholism, drug addiction, transportation, low edu. Level, literacy, decrease access to med. care, senior care, rehab)? @ -[No] Was there de-escalation of care discussed even if they declined (Discuss DNR or withdrawal of care, Hospice)? DNR status @ -[No] What co-morbidities impacted this encounter? (DM, HTN, Smoking, COPD, CAD, Cancer, CVA, ARF, Chemo, Hep., AIDS, mental health diagnosis, sleep apnea, mor bid obesity)? @ -[Hypertension Was patient admitted / discharged? Hospital course, mention meds given and route, prescriptions, significant lab abnormalities, going to OR and other pertinent info. @ -[Patient will be admitted to have serial cardiac enzymes, telemetry monitoring, cardiology consultation. Undiagnosed new problem with uncertain prognosis? @ -[No] Drug Therapy requiring intensive monitoring for toxicity (Heparin, Nitro, Insulin, Cardizem)? @ -[No] Were any procedures done? @ -[No] Diagnosis/symptom? @ -[Acute chest pain Acute on chronic hypertension Acute, or Chronic, or Acute on Chronic? @ -[ Uncomplicated (without systemic symptoms) or Complicated (systemic symptoms)? @ -[Uncomplicated Side effects of treatment? @ -[No] Exacerbation, Progression, or Severe Exacerbation? @ -[No] Poses a threat to life or bodily function? How? (Chest pain, [place], [place], pneumonia, PE, COPD, DKA, ARF, appy, cholecystitis, CVA, Diverticulitis, Homicidal, Suicidal, threat to staff... and all critical care pts) @ -[Possibly life-threatening, requires cardiology evaluation Disposition Clinical Impression: Chest pain, Hypertension Disposition: ADMITTED IP TO THIS HOSP Condition: Fair Is patient prescribed a controlled substance at d/c from ED?: No
[2023-12-27 02:08] LABS: ALT 39 U/L (4-34); AST 28 U/L (14-36); African American GFR (CKD) 89 (>60 ml/min/1.73 sqM); Albumin 4.1 g/dL (3.5-5.0); Alkaline Phosphatase 171 U/L (38-126); Anion Gap 11 mmol/L; Blood Urea Nitrogen 27 mg/dL (7-17); Calcium 9.3 mg/dL (8.4-10.2); Carbon Dioxide 19 mmol/L (22-30); Chloride 102 mmol/L (98-107); Glucose 95 mg/dL (74-99); Non-African American GFR(CKD) 77 (>60 ml/min/1.73 sqM); Partial Thromboplastin Time 24.4 sec (22.0-30.0); Potassium 4.9 mmol/L (3.5-5.1); Prothrombin Time 10.5 sec (10.0-12.5); Sodium 132 mmol/L (137-145); Total Bilirubin 0.4 mg/dL (0.2-1.3); Total Protein 6.9 g/dL (6.3-8.2)
[2023-12-27 02:10] LABS: Basophils # (A) 0.1 k/uL (0-0.2); Basophils % (A) 1 %; Eosinophils # (A) 0.4 k/uL (0-0.7); Eosinophils % (A) 4 %; HCT 41.8 % (34.0-46.0); HGB 13.6 gm/dL (11.4-16.0); Lymphocytes # (A) 2.2 k/uL (1.0-4.8); Lymphocytes % (A) 22 %; MCH 28.9 pg (25.0-35.0); MCHC 32.5 g/dL (31.0-37.0); MCV 88.9 fL (80.0-100.0); Mean Platelet Volume 7.5; Monocytes # (A) 0.4 k/uL (0-1.0); Monocytes % (A) 4 %; Neutrophils # (A) 6.5 k/uL (1.3-7.7); Neutrophils % (A) 66 %; Platelet Count 338 k/uL (150-450); RDW 13.8 % (11.5-15.5); WBC 9.8 k/uL (3.8-10.6)
--- NOTE | 2023-12-27 03:25 | XR ---
EXAM: XR Chest, 2 Views CLINICAL HISTORY: ITS.REASON XR Reason: Chest Pain TECHNIQUE: Frontal and lateral views of the chest. COMPARISON: 01/19/2021 FINDINGS: Lungs: Unremarkable. No consolidation. Pleural space: Unremarkable. No pneumothorax. Heart: Unremarkable. No cardiomegaly. Mediastinum: Unremarkable. Normal mediastinal contour. Bones/joints: Unremarkable. No acute fracture. IMPRESSION: Normal chest x-rays.
[2023-12-27] MEDS: METOPROLOL TARTRATE 50 MG TAB PO STA (03:47)
[2023-12-27] MEDS: NITROGLYCERIN SL TABS 0.4 MG TAB SUBLINGUAL STA (04:11)
[2023-12-27] MEDS ORDERED: NITROGLYCERIN SL TABS 0.4 MG TAB SUBLINGUAL PRN (05:58)
[2023-12-27] MEDS: LEVOTHYROXINE 112 MCG TAB PO SCH (06:10)
--- NOTE | 2023-12-27 08:18 | P.HPIM ---
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 She call 911 presented to the emergency department with anginal symptoms,Mid sternal burning lasted until made it to the ER and Improved with NTG, was seen and evaluated. Her history her EKG did not show any significant ST elevation, laboratory evaluation shows normal CBC, chemistry, mildly elevated alkaline phosphatase and ALT with negative troponin no BNP was done. Chest x-ray shows no major abnormality. With patient history of angioplasty and stent along with current presentation patient will be admitted to the hospital, CK troponin x 3 be done, will keep patient n.p.o. until she sees cardiology to decide on the best action plan she might have repeat echocardiogram to develop any worsening symptoms she needed further Lab if there is any abnormality heart catheter would be advisable otherwise depend on her last stress test will decide on further management. REVIEW OF SYSTEMS: CONSTITUTIONAL: Overweight no acute respiratory distress. EYES: No icterus sclerae, no conjunctivitis. Sublungual EARS, NOSE, MOUTH, THROAT, and FACE: No sore throat, lymphadenopathy, carotid bruits or deformity. RESPIRATORY: Positive shortness of breath no cough or wheezes. CARDIOVASCULAR: Positive chest pain and PND with orthopnea and angina. GASTROINTESTINAL: No Abd pain, Nausea or vomiting, no Diarrhea or constipation, No GI Bleed, no distention or masses. GENITOURINARY: Negative for Hematuria or UTI, no kidney stones. INTEGUMENT/BREAST: Negative for any muscular injury with mild osteoarthritis.. HEMATOLOGIC/LYMPHATIC: Negative for bleed or purpura. MUSCULOSKELTAL: Negative for Myalgia or arthralgia. NEURLOGICAL: No LOC, Sz or syncope, blurred vision dizziness or abnormality.. BEHAVIORAL/PSYCH: Negative. ENDOCRINE: Negative. PHYSICAL EXAMINATION: General Appearance: Alert, cooperative, no distress, appears stated age. Neck HEENT: Supple, no lymphadenopathy, no thyroid enlargement, no carotid bruits. Lungs: Clear to auscultation without crackles or wheezes no rhonchi, no deformity. Chest Wall: Chest wall normal expansion with deep inspiration no tenderness and no deformity was found on exam, no costochondral pain or discomfort. Heart: Regular rate and rhythm, S1, S2 normal, no murmur, rub or gallop. Back: Symmetric, no curvature, ROM normal, no CVA tenderness. Abdomen: Soft, non-tender, bowel sounds active all four quadrants, no masses, no organomegaly. Extremities: Extremities normal, atraumatic, no cyanosis or edema. Pulses: 2+ and symmetric. Skin: Skin color, texture, tugor normal, no rashes or lesions. Neurologic: Alert oriented x3 cranial nerves II through XII intact, no motor deficit, no abnormal balance or gait. ASSESSMENT AND PLAN: _Chest pain and angina: With negative troponin so far no major change in EKG, patient has impressive history with her last angioplasty and stent placement from 3 years ago patient will be hospitalized will see cardiology repeat EKG and troponin echocardiogram based on the finding in the next few hours we will decide on further management. _Atherosclerotic heart disease post angioplasty and stent placement of the LAD back in June 10, 2021: Patient has been On secondary prevention with medication has been on metoprolol, losartan, atorvastatin, Plavix and Zetia. _Hypertension: Continue losartan 50 mg again metoprolol titrate 50 mg daily. _Hyperlipidemia: Still on Zetia) milligram a day along with atorvastatin 20 mg a day. _Hypothyroidism: Resume levothyroxine 112 mcg in the a.m. and half tablet at bedtime every other day. _Severe GERD: Has been on omeprazole 20 mg daily. _Abnormal liver function test: Not clear whether this is side effect of medication or FABIAN might do liver ultrasound repeat liver function test and probably hepatitis panel be done. _GI prophylaxis: Patient will be on omeprazole 20 mg a day. _DVT prophylaxis: Knee-high ASHLEY hose and early mobilization. CODE STATUS: Full code. Admit patient to the inpatient service for 1-2 night stay. Past Medical History Past Medical History: GERD/Reflux, Hypertension, Osteoarthritis (OA), Thyroid Disorder Additional Past Medical History / Comment(s): having pain to neck and shoulders with numbness to left arm and fingers, having increased SOB and fatigue, had s tress test and echo Mar 2021, had covid infection November 2020,,hx hiatal hernia,varicose veins History of Any Multi-Drug Resistant Organisms: None Reported Past Surgical History: Joint Replacement, Tonsillectomy Additional Past Surgical History / Comment(s): corrective eye surgery for crossed eye, TOTAL LEFT KNEE Past Anesthesia/Blood Transfusion Reactions: Previous Problems w/ Anesthesia, Motion Sickness, Postoperative Nausea & Vomiting (PONV) Additional Past Anesthesia/Blood Transfusion Reaction / Comment(s): headache with anesthesia,no hx blood transfusion, "Severe motion sickness" Past Psychological History: Anxiety Smoking Status: Never smoker Past Alcohol Use History: None Reported Past Drug Use History: None Reported - Past Family History Sister(s) Family Medical History: Cancer Additional Family Medical History / Comment(s): breast Mother Family Medical History: No Reported History Father Family Medical History: Myocardial Infarction ([place]) Additional Family Medical History / Comment(s): at age 60 Medications and Allergies Home Medications Medication Instructions Recorded Confirmed Type Acetaminophen Tab [Tylenol] 1,000 mg PO BID@1400,1930 09/29/15 12/27/23 History Levothyroxine Sodium [Synthroid] 112 mcg PO MOWEFR@0630 09/29/15 12/27/23 History Metoprolol Tartrate [Lopressor] 50 mg PO HS 09/29/15 12/27/23 History Multivit-Min/FA/Lycopen/Lutein 1 tab PO DAILY 09/29/15 12/27/23 History [Centrum Silver Tablet] Levothyroxine Sodium [Synthroid] 56 mcg PO SUTUTHSA@0630 01/10/17 12/27/23 History Losartan [Cozaar] 50 mg PO BID 03/15/21 12/27/23 History Omeprazole 20 mg PO DAILY 03/15/21 12/27/23 History Aspirin EC [Ecotrin Low Dose] 81 mg PO DAILY@1900 12/27/23 12/27/23 History Carboxymethylcellulos/Glycerin 2 drop BOTH EYES DAILY@1300 12/27/23 12/27/23 History [Refresh Relieva 0.5-0.9% Drop] Cetirizine HCl [Zyrtec] 10 mg PO HS 12/27/23 12/27/23 History Ezetimibe [Zetia] 10 mg PO DAILY@1900 12/27/23 12/27/23 History Ibuprofen [Advil] 400 mg PO HS 12/27/23 12/27/23 History Propylene Glycol/Peg 400 [Systane 2 drop BOTH EYES BID@0830,1930 12/27/23 12/27/23 History Ultra 0.4-0.3% Eye Drp] Sodium Chloride 5% Ophth Soln 1 drops BOTH EYES HS 12/27/23 12/27/23 History [Sony 128] Systane Nightime Lubricant 1 drop BOTH EYES HS 12/27/23 12/27/23 History Allergies Allergy/AdvReac Type Severity Reaction Status Date / Time adhesive Allergy skin Verified 12/27/23 07:45 redness and itching cyclosporine [From Restasis] Allergy "made me Verified 12/27/23 07:45 feel like I was drunk" Penicillins Allergy Anaphylaxis Verified 12/27/23 07:45 Sulfa (Sulfonamide Allergy Anaphylaxis Verified 12/27/23 07:45 Antibiotics) Physical Exam Vitals: Vital Signs Temp Pulse Resp BP Pulse Ox 12/27/23 04:32 67 16 165/85 96 12/27/23 04:06 61 16 174/83 98 12/27/23 03:07 66 20 171/79 98 12/27/23 01:10 97.8 F 85 20 155/115 97 Intake and Output 12/26/23 12/26/23 12/27/23 14:59 22:59 06:59 Other: Weight 97.976 kg Results CBC & Chem 7: 12/27/23 01:36 12/27/23 01:36 Labs: Abnormal Lab Results - Last 24 Hours (Table) 12/27/23 Range/Units 01:36 Sodium 132 L (137-145) mmol/L Carbon Dioxide 19 L (22-30) mmol/L BUN 27 H (7-17) mg/dL ALT 39 H (4-34) U/L Alkaline Phosphatase 171 H (38-126) U/L
[2023-12-27] MEDS ORDERED: LOSARTAN 50 MG TAB PO SCH (09:00)
--- NOTE | 2023-12-27 09:06 | US ---
EXAMINATION TYPE: US liver DATE OF EXAM: 12/27/2023 COMPARISON: NONE CLINICAL INDICATION: Female, 73 years old with history of Abnormal Liver FT; Abnormal labs TECHNIQUE: Multiple sonographic images of the right upper quadrant are obtained. FINDINGS: EXAM MEASUREMENTS: Liver Length: 17.6 cm Gallbladder Wall: 0.1 cm CBD: 0.3 cm Right Kidney: 10.0 x 5.1 x 4.6 cm Pancreas: Tail obscured by overlying bowel gas, appears echogenic in appearance Liver: wnl Gallbladder: No stones or wall thickening Evidence for sonographic Hendrix's sign: neg CBD: wnl Right Kidney: medial anechoic lesion at hilum = 1.4 x 0.9 cm . Renal pelvis versus peripelvic cyst. IMPRESSION: 1. Hepatomegaly. 2. Possible peripelvic cyst at the right renal pelvis.
[2023-12-27] MEDS: LOSARTAN 50 MG TAB PO SCH (09:07)
[2023-12-27] MEDS: MULTIVITAMINS, THERA 1 EACH TAB PO SCH (09:07)
[2023-12-27] MEDS: ASPIRIN 81 MG PO SCH (09:07)
[2023-12-27] MEDS: PANTOPRAZOLE 40 MG TABLET PO SCH (09:07)
[2023-12-27] MEDS: CLOPIDOGREL 75 MG TAB PO SCH (09:07)
[2023-12-27] MEDS: EZETIMIBE 10 MG TAB PO SCH (09:07)
[2023-12-27] MEDS: HEPARIN SOD,PORK IN 0.45% NACL 25,000 UNIT in 0.45% NACL 1 250ML.BAG IV SCH (09:09)
[2023-12-27] MEDS: hydroCHLOROthiazide 25 MG TAB PO SCH (09:37)
--- NOTE | 2023-12-27 09:38 | P.CRDCN ---
History of Present Illness History of present illness: HISTORY OF PRESENT ILLNESS: This is a 73-year-old female with a past medical history significant for coronary artery disease, hypertension, hyperlipidemia, and hypothyroidism. Patient follows in the office with Dr. Navarro. We have been asked to see the patient in consultation for chest pain. Patient examined at the bedside in the emergency room. It is noted that the patient's blood pressures have been elevated since coming to the hospital with a systolic ranging between [id number]. DIAGNOSTICS: - EKG reveals sinus mechanism with no signs of acute ischemia. - Chest xray negative for acute process - Laboratory data: WBC 9.8. Hemoglobin 13.6. Hemoglobin 13.6. Sodium 132. Potassium 4.9. BUN 27. Creatinine 0.77. Magnesium 2.0. AST 39. ALT 28. Alkaline phosphatase 171. Troponin negative x 2. - Current home cardiac medications include losartan 50 mg twice a day, metoprolo l tartrate 50 mg at night, aspirin 81 mg daily, Zetia 10 mg daily - Most recent echocardiogram obtained in May 2023 revealing normal EF, mild TR, mild to moderate MR - Cardiac catheterization history: May 2021 with stenting to the proximal LAD x 2 REVIEW OF SYSTEMS: At the time of my exam: CONSTITUTIONAL: Denies fever or chills. HEENT: Denies blurred vision, vision changes, or eye pain. Denies hemoptysis CARDIOVASCULAR: Denies chest pain. Denies orthopnea. Denies PND. Denies palpitations RESPIRATORY: Denies shortness of breath. GASTROINTESTINAL: Denies abdominal pain. Denies nausea or vomiting. HEMATOLOGIC: Denies bleeding disorders. GENITOURINARY: Denies any blood in urine. SKIN: Denies pruitis. Denies rash. PHYSICAL EXAM: VITAL SIGNS: Reviewed. GENERAL: Well-developed in no acute distress. HEENT: Head is normocephalic. Pupils are equal, round. Sclerae anicteric. Mucous membranes of the mouth are moist. Neck supple. No JVD or thyromegaly LUNGS: Respirations even and unlabored. Lungs essentially clear to auscultation bilaterally. HEART: Regular rate and rhythm. S1 and S2 heard. Systolic murmur noted. ABDOMEN: Soft. Nondistended. Nontender. EXTREMITIES: Normal range of motion. No clubbing or cyanosis. Peripheral pulses intact. No lower extremity edema NEUROLOGIC: Awake and alert. Oriented x 3. ASSESSMENT: Chest pain, troponin negative x 2 Coronary artery disease with previous stenting of the LAD, May 2021 Hypertension Hyperlipidemia Hypothyroidism Minimally elevated AST History of GERD PLAN: An acute coronary but has been ruled out Obtain 2D echo to assess cardiac structure and function Resume home cardiac medications Further recommendations pending patient course Nurse practitioner note has been reviewed by physician. Signing provider agrees with the documented findings, assessment, and plan of care documented by [employer] as a scribe. Past Medical History Past Medical History: GERD/Reflux, Hypertension, Osteoarthritis (OA), Thyroid Disorder Additional Past Medical History / Comment(s): having pain to neck and shoulders with numbness to left arm and fingers, having increased SOB and fatigue, had stress test and echo Mar 2021, had covid infection November 2020,,hx hiatal hernia,varicose veins History of Any Multi-Drug Resistant Organisms: None Reported Past Surgical History: Joint Replacement, Tonsillectomy Additional Past Surgical History / Comment(s): corrective eye surgery for crossed eye, TOTAL LEFT KNEE Past Anesthesia/Blood Transfusion Reactions: Previous Problems w/ Anesthesia, Motion Sickness, Postoperative Nausea & Vomiting (PONV) Additional Past Anesthesia/Blood Transfusion Reaction / Comment(s): headache with anesthesia,no hx blood transfusion, "Severe motion sickness" Past Psychological History: Anxiety Smoking Status: Never smoker Past Alcohol Use History: None Reported Past Drug Use History: None Reported - Past Family History Sister(s) Family Medical History: Cancer Additional Family Medical History / Comment(s): breast Mother Family Medical History: No Reported History Father Family Medical History: Myocardial Infarction ([place]) Additional Family Medical History / Comment(s): at age 60 Medications and Allergies Home Medications Medication Instructions Recorded Confirmed Type Acetaminophen Tab [Tylenol] 1,000 mg PO BID@1400,1930 09/29/15 12/27/23 History Levothyroxine Sodium [Synthroid] 112 mcg PO MOWEFR@0630 09/29/15 12/27/23 History Metoprolol Tartrate [Lopressor] 50 mg PO HS 09/29/15 12/27/23 History Multivit-Min/FA/Lycopen/Lutein 1 tab PO DAILY 09/29/15 12/27/23 History [Centrum Silver Tablet] Levothyroxine Sodium [Synthroid] 56 mcg PO SUTUTHSA@0630 01/10/17 12/27/23 History Losartan [Cozaar] 50 mg PO BID 03/15/21 12/27/23 History Omeprazole 20 mg PO DAILY 03/15/21 12/27/23 History Aspirin EC [Ecotrin Low Dose] 81 mg PO DAILY@1900 12/27/23 12/27/23 History Carboxymethylcellulos/Glycerin 2 drop BOTH EYES DAILY@1300 12/27/23 12/27/23 History [Refresh Relieva 0.5-0.9% Drop] Cetirizine HCl [Zyrtec] 10 mg PO HS 12/27/23 12/27/23 History Ezetimibe [Zetia] 10 mg PO DAILY@19012/27/23 12/27/23 History Ibuprofen [Advil] 400 mg PO HS 12/27/23 12/27/23 History Propylene Glycol/Peg 400 [Systane 2 drop BOTH EYES BID@0830,1930 12/27/23 12/27/23 History Ultra 0.4-0.3% Eye Drp] Sodium Chloride 5% Ophth Soln 1 drops BOTH EYES HS 12/27/23 12/27/23 History [Sony 128] Systane Nightime Lubricant 1 drop BOTH EYES HS 12/27/23 12/27/23 History Allergies Allergy/AdvReac Type Severity Reaction Status Date / Time adhesive Allergy skin Verified 12/27/23 07:45 redness and itching cyclosporine [From Restasis] Allergy "made me Verified 12/27/23 07:45 feel like I was drunk" Penicillins Allergy Anaphylaxis Verified 12/27/23 07:45 Sulfa (Sulfonamide Allergy Anaphylaxis Verified 12/27/23 07:45 Antibiotics) Physical Exam Vitals: Vital Signs Temp Pulse Resp BP Pulse Ox 12/27/23 06:12 64 16 170/82 97 12/27/23 04:32 67 16 165/85 96 12/27/23 04:06 61 16 174/83 98 12/27/23 03:07 66 20 171/79 98 12/27/23 01:10 97.8 F 85 20 155/115 97 Intake and Output 12/26/23 12/27/23 12/27/23 22:59 06:59 14:59 Other: Weight 97.976 kg Results 12/27/23 01:36 12/27/23 01:36 Cardiac Enzymes 12/27/23 12/27/23 12/27/23 Range/Units 01:36 01:36 06:29 AST 28 (14-36) U/L Troponin I <0.012 0.024 (0.000-0.034) ng/mL Coagulation 12/27/23 Range/Units 01:36 PT 10.5 (10.0-12.5) sec APTT 24.4 (22.0-30.0) sec CBC 12/27/23 Range/Units 01:36 WBC 9.8 (3.8-10.6) k/uL RBC 4.70 (3.80-5.40) m/uL Hgb 13.6 (11.4-16.0) gm/dL Hct 41.8 (34.0-46.0) % Plt Count 338 (150-450) k/uL Comprehensive Metabolic Panel 12/27/23 Range/Units 01:36 Sodium 132 L (137-145) mmol/L Potassium 4.9 (3.5-5.1) mmol/L Chloride 102 (98-107) mmol/L Carbon Dioxide 19 L (22-30) mmol/L BUN 27 H (7-17) mg/dL Creatinine 0.77 (0.52-1.04) mg/dL Glucose 95 (74-99) mg/dL Calcium 9.3 (8.4-10.2) mg/dL AST 28 (14-36) U/L ALT 39 H (4-34) U/L Alkaline Phosphatase 171 H (38-126) U/L Total Protein 6.9 (6.3-8.2) g/dL Albumin 4.1 (3.5-5.0) g/dL Current Medications Generic Name Dose Route Start Last Admin Trade Name Freq PRN Reason Stop Dose Admin Acetaminophen 1,000 mg 12/27/23 13:30 Acetaminophen Tab 500 Mg Tab PO 1330,1900 [facility] Artificial Tears 1 drops 12/27/23 09:00 Artificial Tears-Hypromellose Drops 15 Ml Btl BOTH EYES QID [facility] Aspirin 81 mg 12/27/23 09:00 Aspirin 81 Mg PO DAILY [facility] Atorvastatin Calcium 20 mg 12/27/23 21:00 Atorvastatin 20 Mg Tab PO HS [facility] Clopidogrel Bisulfate 75 mg 12/27/23 09:00 Clopidogrel 75 Mg Tab PO DAILY [facility] Ezetimibe 10 mg 12/27/23 09:00 Ezetimibe 10 Mg Tab PO DAILY [facility] Heparin Sodium/Sodium Chloride 250 mls @ 10 mls/hr 12/27/23 08:15 25,000 unit/ Sodium Chloride IV .Q24H [facility] Protocol 10.207 UNITS/KG/HR Levothyroxine Sodium 112 mcg 12/28/23 06:30 Levothyroxine 112 Mcg Tab PO MoWeFr@0630 [facility] Levothyroxine Sodium 56 mcg 12/29/23 06:30 Levothyroxine 112 Mcg Tab PO SuTuThSa@0630 [facility] Losartan Potassium 50 mg 12/27/23 09:00 Losartan 50 Mg Tab PO BID [facility] Metoprolol Tartrate 50 mg 12/27/23 21:00 Metoprolol Tartrate 50 Mg Tab PO [facility] Multivitamins 1 each 12/27/23 09:00 Multivitamins, Thera 1 Each Tab PO DAILY [facility] Nitroglycerin 0.4 mg 12/27/23 04:57 Nitroglycerin Sl Tabs 0.4 Mg Tab SUBLINGUAL Q5M PRN Chest Pain Pantoprazole Sodium 40 mg 12/27/23 07:30 Pantoprazole 40 Mg Tablet PO [id number]-[id number] [facility] Intake and Output 12/26/23 12/27/23 12/27/23 22:59 06:59 14:59 Other: Weight 97.976 kg 12/27/23 01:36 12/27/23 01:36
--- NOTE | 2023-12-27 09:47 | P.CRDCN ---
History of Present Illness Consult date: 12/27/23 Consult reason: chest pain History of present illness: HISTORY OF PRESENT ILLNESS: This is a 73-year-old female with a past medical history significant for coronary artery disease, hypertension, hyperlipidemia, and hypothyroidism. Patient follows in the office with Dr. Navarro. We have been asked to see the patient in consultation for chest pain. Patient examined at the bedside in the emergency room. Patient states that she woke up from a sleep last night with heaviness in her chest. She also experienced difficulty in breathing. This is her first episode that she has had. She also had shaking and sweating. She denies having any lightheadedness, dizziness, syncope. She states that her blood pressures have been running high and had recently followed up with Edilia DAVALOS at Dr. Kennedy's office. She states her blood pressure has been running 170/90. She states she has been taking all of her medications as directed and following a no added salt diet. She denies any abdominal pain. It is noted that the patient's blood pressures have been elevated since coming to the hospital with a systolic ranging between [id number]. DIAGNOSTICS: - EKG reveals sinus mechanism with no signs of acute ischemia. - Chest xray negative for acute process - Laboratory data: WBC 9.8. Hemoglobin 13.6. Hemoglobin 13.6. Sodium 132. Potassium 4.9. BUN 27. Creatinine 0.77. Magnesium 2.0. AST 39. ALT 28. Alkaline phosphatase 171. Troponin negative x 2. - Current home cardiac medications include losartan 50 mg twice a day, metoprolol tartrate 50 mg at night, aspirin 81 mg daily, Zetia 10 mg daily - Most recent echocardiogram obtained in May 2023 revealing normal EF, mild TR, mild to moderate MR - Cardiac catheterization history: May 2021 with stenting to the proximal LAD x 2 REVIEW OF SYSTEMS: At the time of my exam: CONSTITUTIONAL: Denies fever or chills. HEENT: Denies blurred vision, vision changes, or eye pain. Denies hemoptysis CARDIOVASCULAR: Denies chest pain. Denies orthopnea. Denies PND. Denies palpitations RESPIRATORY: Denies shortness of breath. GASTROINTESTINAL: Denies abdominal pain. Denies nausea or vomiting. HEMATOLOGIC: Denies bleeding disorders. GENITOURINARY: Denies any blood in urine. SKIN: Denies pruitis. Denies rash. PHYSICAL EXAM: VITAL SIGNS: Reviewed. GENERAL: Well-developed in no acute distress. HEENT: Head is normocephalic. Pupils are equal, round. Sclerae anicteric. Mucous membranes of the mouth are moist. Neck supple. No JVD or thyromegaly LUNGS: Respirations even and unlabored. Lungs essentially clear to auscultation bilaterally. HEART: Regular rate and rhythm. S1 and S2 heard. Systolic murmur noted. ABDOMEN: Soft. Nondistended. Nontender. EXTREMITIES: Normal range of motion. No clubbing or cyanosis. Peripheral pulses intact. No lower extremity edema NEUROLOGIC: Awake and alert. Oriented x 3. ASSESSMENT: Hypertensive crisis Chest pain, troponin negative x 2, chest pain most likely due to hypertensive crisis rule out severe coronary artery disease Coronary artery disease with previous stenting of the LAD, May 2021 Hypertension Hyperlipidemia Hypothyroidism Minimally elevated AST History of GERD PLAN: An acute coronary but has been ruled out Continue patient's home cardiac medications Add hydrochlorothiazide 25 mg daily Obtain 2D echo to assess cardiac structure and function Monitor blood pressure closely Further recommendations as patient progresses Further recommendations pending patient course Nurse practitioner note has been reviewed by physician. Signing provider agrees with the documented findings, assessment, and plan of care documented by SECURITY TECH as a scribe. Past Medical History Past Medical History: GERD/Reflux, Hypertension, Osteoarthritis (OA), Thyroid Disorder Additional Past Medical History / Comment(s): having pain to neck and shoulders with numbness to left arm and fingers, having increased SOB and fatigue, had stress test and echo Mar 2021, had covid infection November 2020,,hx hiatal hernia,varicose veins History of Any Multi-Drug Resistant Organisms: None Reported Past Surgical History: Joint Replacement, Tonsillectomy Additional Past Surgical History / Comment(s): corrective eye surgery for crossed eye, TOTAL LEFT KNEE Past Anesthesia/Blood Transfusion Reactions: Previous Problems w/ Anesthesia, Motion Sickness, Postoperative Nausea & Vomiting (PONV) Additional Past Anesthesia/Blood Transfusion Reaction / Comment(s): headache with anesthesia,no hx blood transfusion, "Severe motion sickness" Past Psychological History: Anxiety Smoking Status: Never smoker Past Alcohol Use History: None Reported Past Drug Use History: None Reported - Past Family History Sister(s) Family Medical History: Cancer Additional Family Medical History / Comment(s): breast Mother Family Medical History: No Reported History Father Family Medical History: Myocardial Infarction ([place]) Additional Family Medical History / Comment(s): at age 60 Medications and Allergies Home Medications Medication Instructions Recorded Confirmed Type Acetaminophen Tab [Tylenol] 1,000 mg PO BID@1400,1930 09/29/15 12/27/23 History Levothyroxine Sodium [Synthroid] 112 mcg PO MOWEFR@0630 09/29/15 12/27/23 History Metoprolol Tartrate [Lopressor] 50 mg PO HS 09/29/15 12/27/23 History Multivit-Min/FA/Lycopen/Lutein 1 tab PO DAILY 09/29/15 12/27/23 History [Centrum Silver Tablet] Levothyroxine Sodium [Synthroid] 56 mcg PO SUTUTHSA@0630 01/10/17 12/27/23 History Losartan [Cozaar] 50 mg PO BID 03/15/21 12/27/23 History Omeprazole 20 mg PO DAILY 03/15/21 12/27/23 History Aspirin EC [Ecotrin Low Dose] 81 mg PO DAILY@1900 12/27/23 12/27/23 History Carboxymethylcellulos/Glycerin 2 drop BOTH EYES DAILY@1300 12/27/23 12/27/23 History [Refresh Relieva 0.5-0.9% Drop] Cetirizine HCl [Zyrtec] 10 mg PO HS 12/27/23 12/27/23 History Ezetimibe [Zetia] 10 mg PO DAILY@1900 12/27/23 12/27/23 History Ibuprofen [Advil] 400 mg PO HS 12/27/23 12/27/23 History Propylene Glycol/Peg 400 [Systane 2 drop BOTH EYES BID@0830,1930 12/27/23 12/27/23 History Ultra 0.4-0.3% Eye Drp] Sodium Chloride 5% Ophth Soln 1 drops BOTH EYES HS 12/27/23 12/27/23 History [Sony 128] Systane Nightime Lubricant 1 drop BOTH EYES HS 12/27/23 12/27/23 History Allergies Allergy/AdvReac Type Severity Reaction Status Date / Time adhesive Allergy skin Verified 12/27/23 07:45 redness and itching cyclosporine [From Restasis] Allergy "made me Verified 12/27/23 07:45 feel like I was drunk" Penicillins Allergy Anaphylaxis Verified 12/27/23 07:45 Sulfa (Sulfonamide Allergy Anaphylaxis Verified 12/27/23 07:45 Antibiotics) Physical Exam Vitals: Vital Signs Temp Pulse Resp BP Pulse Ox 12/27/23 06:12 64 16 170/82 97 12/27/23 04:32 67 16 165/85 96 12/27/23 04:06 61 16 174/83 98 12/27/23 03:07 66 20 171/79 98 12/27/23 01:10 97.8 F 85 20 155/115 97 Intake and Output 12/26/23 12/27/23 12/27/23 22:59 06:59 14:59 Other: Weight 97.976 kg Results 12/27/23 01:36 12/27/23 01:36 Cardiac Enzymes 12/27/23 12/27/23 12/27/23 Range/Units 01:36 01:36 06:29 AST 28 (14-36) U/L Troponin I <0.012 0.024 (0.000-0.034) ng/mL Coagulation 12/27/23 Range/Units 01:36 PT 10.5 (10.0-12.5) sec APTT 24.4 (22.0-30.0) sec CBC 12/27/23 Range/Units 01:36 WBC 9.8 (3.8-10.6) k/uL RBC 4.70 (3.80-5.40) m/uL Hgb 13.6 (11.4-16.0) gm/dL Hct 41.8 (34.0-46.0) % Plt Count 338 (150-450) k/uL Comprehensive Metabolic Panel 12/27/23 Range/Units 01:36 Sodium 132 L (137-145) mmol/L Potassium 4.9 (3.5-5.1) mmol/L Chloride 102 (98-107) mmol/L Carbon Dioxide 19 L (22-30) mmol/L BUN 27 H (7-17) mg/dL Creatinine 0.77 (0.52-1.04) mg/dL Glucose 95 (74-99) mg/dL Calcium 9.3 (8.4-10.2) mg/dL AST 28 (14-36) U/L ALT 39 H (4-34) U/L Alkaline Phosphatase 171 H (38-126) U/L Total Protein 6.9 (6.3-8.2) g/dL Albumin 4.1 (3.5-5.0) g/dL Current Medications Generic Name Dose Route Start Last Admin Trade Name Freq PRN Reason Stop Dose Admin Acetaminophen 1,000 mg 12/27/23 13:30 Acetaminophen Tab 500 Mg Tab PO 1330,1900 [facility] Artificial Tears 1 drops 12/27/23 09:00 Artificial Tears-Hypromellose Drops 15 Ml Btl BOTH EYES QID [facility] Aspirin 81 mg 12/27/23 09:00 Aspirin 81 Mg PO DAILY [facility] Atorvastatin Calcium 20 mg 12/27/23 21:00 Atorvastatin 20 Mg Tab PO HS [facility] Clopidogrel Bisulfate 75 mg 12/27/23 09:00 Clopidogrel 75 Mg Tab PO DAILY [facility] Ezetimibe 10 mg 12/27/23 09:00 Ezetimibe 10 Mg Tab PO DAILY [facility] Heparin Sodium/Sodium Chloride 250 mls @ 10 mls/hr 12/27/23 08:15 25,000 unit/ Sodium Chloride IV .Q24H [facility] Protocol 10.207 UNITS/KG/HR Levothyroxine Sodium 112 mcg 12/28/23 06:30 Levothyroxine 112 Mcg Tab PO MoWeFr@0630 [facility] Levothyroxine Sodium 56 mcg 12/29/23 06:30 Levothyroxine 112 Mcg Tab PO SuTuThSa@0630 [facility] Losartan Potassium 50 mg 12/27/23 09:00 Losartan 50 Mg Tab PO BID [facility] Metoprolol Tartrate 50 mg 12/27/23 21:00 Metoprolol Tartrate 50 Mg Tab PO HS [facility] Multivitamins 1 each 12/27/23 09:00 Multivitamins, Thera 1 Each Tab PO DAILY [facility] Nitroglycerin 0.4 mg 12/27/23 04:57 Nitroglycerin Sl Tabs 0.4 Mg Tab SUBLINGUAL Q5M PRN Chest Pain Pantoprazole Sodium 40 mg 12/27/23 07:30 Pantoprazole 40 Mg Tablet PO AC-BRKFST [facility] Intake and Output 12/26/23 12/27/23 12/27/23 22:59 06:59 14:59 Other: Weight 97.976 kg 12/27/23 01:36 12/27/23 01:36
[2023-12-27] MEDS: ARTIFICIAL TEARS-HYPROMELLOSE DROPS 15 ML BTL BOTH EYES SCH (11:18)
[2023-12-27] MEDS ORDERED: HYDROmorphone 0.5 MG/0.5 ML SYRINGE IVP PRN (11:58)
[2023-12-27] MEDS: amLODIPine 5 MG TAB PO STA (12:07)
[2023-12-27] MEDS: ACETAMINOPHEN TAB 500 MG TAB PO SCH (12:07)
--- NOTE | 2023-12-27 12:18 | CA ---
Transthoracic Echo Report Name: Ce Asencio Age: 73 Gender: F : 1950 Exam Date: 12/27/2023 09:14 Exam Location: [facility] Ht (in): 63 Wt (lb): 216 Ordering Physician: Ricky Kennedy MD Attending/Referring Phys: Emt/Dispatcher Mary Daley RDCS Procedure CPT: Indications: lvfunction Cardiac Hx: Technical Quality: Fair Contrast 1: Total Dose (mL): Contrast 2: Total Dose (mL): MEASUREMENTS (Male / Female) Normal Values 2D ECHO LV Diastolic Diameter PLAX 4.9 cm 4.2 - 5.9 / 3.9 - 5.3 cm LV Systolic Diameter PLAX 3.0 cm IVS Diastolic Thickness 1.2 cm 0.6 - 1.0 / 0.6 - 0.9 cm LVPW Diastolic Thickness 1.2 cm 0.6 - 1.0 / 0.6 - 0.9 cm LV Relative Wall Thickness 0.5 RV Internal Dim ED PLAX 1.6 cm LA Systolic Diameter LX 3.7 cm 3.0 - 4.0 / 2.7 - 3.8 cm LV Diastolic Volume MOD BP 71.5 cm??? 67 - 155 / 56 - 104 cm??? LV Systolic Volume MOD BP 30.0 cm??? 22 - 58 / 19 - 49 cm??? LV Ejection Fraction MOD BP 58.0 % >= 55 % LV Cardiac Index MOD BP 1281.4 cm???/min???m??? LV Diastolic Volume MOD 4C 72.8 cm??? LV Systolic Volume MOD 4C 36.5 cm??? LV Ejection Fraction MOD 4C 49.8 % LV Cardiac Index MOD 4C 1121.3 cm???/min???m??? LV Diastolic Length 4C 7.2 cm LV Systolic Length 4C 6.2 cm LV Diastolic Volume MOD 2C 63.1 cm??? LV Systolic Volume MOD 2C 20.9 cm??? LV Ejection Fraction MOD 2C 66.9 % LV Cardiac Index MOD 2C 1304.4 cm???/min???m??? LV Diastolic Length 2C 6.5 cm LV Systolic Length 2C 5.2 cm LA Volume 80.7 cm??? 18 - 58 / 22 - 52 cm??? LA Volume Index 37.8 cm???/m??? 16 - 28 cm???/m??? M-MODE Aortic Root Diameter MM 2.7 cm LA Systolic Diameter MM 4.3 cm LA Ao Ratio MM 1.6 AV Cusp Separation MM 1.7 cm DOPPLER AV Peak Velocity 136.2 cm/s AV Peak Gradient 7.4 mmHg MV Area PHT 3.6 cm??? Mitral E Point Velocity 75.6 cm/s Mitral A Point Velocity 104.7 cm/s Mitral E to A Ratio 0.7 MV Deceleration Time 209.6 ms TR Peak Velocity 315.8 cm/s TR Peak Gradient 39.9 mmHg Right Ventricular Systolic Press 43.0 mmHg FINDINGS Left Ventricle Left ventricular ejection fraction is estimated at 50 %. Mildly increased septal wall thickness. Mildly increased posterior wall thickness. No obvious regional wall motion abnormalities. Left ventricular cavity size normal. Right Ventricle Normal right ventricular size and function. Mild pulmonary hypertension. Right Atrium Normal right atrial size. Left Atrium Moderately increased left atrial volume. Mildly increased left atrial area. Mitral Valve Structurally normal mitral valve. Mild to moderate mitral regurgitation. Aortic Valve Trileaflet aortic valve. No aortic valve stenosis or regurgitation. Tricuspid Valve Structurally normal tricuspid valve. Mild tricuspid regurgitation. No tricuspid stenosis. Pulmonic Valve Structurally normal pulmonic valve. No pulmonic stenosis. No pulmonic regurgitation. Pericardium No pericardial or pleural effusion. Aorta Normal size aortic root and proximal ascending aorta. CONCLUSIONS Low-normal LV systolic function with EF at 50% Trileaflet aortic valve with no stenosis or regurgitation Mild to moderate mitral regurgitation with posterior directed jet Mild pulmonary hypertension Previewed by: Dr. Solomon Cronin MD (Electronically Signed) Final Date: 27 Dec 2023 12:17
[2023-12-27] MEDS: ACETAMINOPHEN TAB 500 MG TAB PO PRN (16:01)
[2023-12-27] MEDS: hydrALAZINE HCL 25 MG TAB PO PRN (16:01)
[2023-12-27] MEDS: LORATADINE 10 MG TAB PO SCH (22:17)
[2023-12-27] MEDS: VALSARTAN 160 MG TAB PO SCH (22:17)
[2023-12-27] MEDS: ATORVASTATIN 20 MG TAB PO SCH (22:17)
[2023-12-27] MEDS: METOPROLOL TARTRATE 50 MG TAB PO SCH (22:18)
[2023-12-28] MEDS: LEVOTHYROXINE 112 MCG TAB PO SCH (06:37)
--- NOTE | 2023-12-28 09:21 | US ---
EXAMINATION TYPE: US venous doppler duplex LE BI DATE OF EXAM: 12/28/2023 8:57 AM COMPARISON: Prev left leg CLINICAL INDICATION: Female, 73 years old with history of ro dvt; Pt states leg pain, no known prior DVT SIDE PERFORMED: Bilateral TECHNIQUE: The lower extremity deep venous system is examined utilizing real time linear array sonog aretha with graded compression, doppler sonography and color-flow sonography. VESSELS IMAGED: Common Femoral Vein Deep Femoral Vein Greater Saphenous Vein * Femoral Vein Popliteal Vein Small Saphenous Vein * Proximal Calf Veins (* superficial vessels) Right Leg: Negative for DVT Left Leg: Negative for DVT IMPRESSION: Grayscale, color doppler, spectral doppler imaging performed of the deep veins of the lo wer extremities. There is normal flow, compressibility, vascular waveforms.
[2023-12-28] MEDS: amLODIPine 5 MG TAB PO SCH (09:50)
[2023-12-28] MEDS: LOSARTAN 50 MG TAB PO SCH ×2 (09:52→22:35)
[2023-12-28 10:04] LABS: ALT 30 U/L (4-34); AST 19 U/L (14-36); African American GFR (CKD) >90 (>60 ml/min/1.73 sqM); Albumin 4.1 g/dL (3.5-5.0); Alkaline Phosphatase 153 U/L (38-126); Anion Gap 11 mmol/L; Blood Urea Nitrogen 18 mg/dL (7-17); Calcium 9.8 mg/dL (8.4-10.2); Carbon Dioxide 20 mmol/L (22-30); Chloride 98 mmol/L (98-107); Glucose 138 mg/dL (74-99); Non-African American GFR(CKD) >90 (>60 ml/min/1.73 sqM); Potassium 4.4 mmol/L (3.5-5.1); Sodium 129 mmol/L (137-145); Total Bilirubin 0.5 mg/dL (0.2-1.3)
[2023-12-28] MEDS: hydrALAZINE HCL 50 MG TAB PO SCH (13:11)
--- NOTE | 2023-12-28 14:34 | P.PN ---
Subjective HISTORY OF PRESENT ILLNESS: This is a 73-year-old female with a past medical history significant for coronary artery disease, hypertension, hyperlipidemia, and hypothyroidism. Patient follows in the office with Dr. Navarro. We have been asked to see the patient in consultation for chest pain. Patient examined at the bedside in the emergency room. Patient states that she woke up from a sleep last night with heaviness in her chest. She also experienced difficulty in breathing. This is her first episode that she has had. She also had shaking and sweating. She denies having any lightheadedness, dizziness, syncope. She states that her bl ood pressures have been running high and had recently followed up with Edilia DAVALOS at Dr. Kennedy's office. She states her blood pressure has been running 170/90. She states she has been taking all of her medications as directed and following a no added salt diet. She denies any abdominal pain. It is noted that the patient's blood pressures have been elevated since coming to the hospital with a systolic ranging between [id number]. 12/28/2023 Patient examined this morning at the bedside. Patient denies having any chest pain or pressure this morning. She denies any shortness of breath. She does report having a headache and feels dizzy this morning. Patient's blood pressures continue to remain uncontrolled. Echocardiogram completed revealing ejection fraction 50%, mild to moderate mitral regurgitation, and mild pulm hypertension DIAGNOSTICS: - EKG reveals sinus mechanism with no signs of acute ischemia. - Chest xray negative for acute process - Laboratory data: WBC 9.8. Hemoglobin 13.6. Hemoglobin 13.6. Sodium 132. Potassium 4.9. BUN 27. Creatinine 0.77. Magnesium 2.0. AST 39. ALT 28. Alkaline phosphatase 171. Troponin negative x 2. - Current home cardiac medications include losartan 50 mg twice a day, metoprolol tartrate 50 mg at night, aspirin 81 mg daily, Zetia 10 mg daily - Most recent echocardiogram obtained in May 2023 revealing normal EF, mild TR, mild to moderate MR - Cardiac catheterization history: May 2021 with stenting to the proximal LAD x 2 PHYSICAL EXAM: VITAL SIGNS: Reviewed. GENERAL: Well-developed in no acute distress. NECK: Supple. No JVD or thyromegaly LUNGS: Respirations even and unlabored. Lungs essentially clear to auscultation bilaterally. HEART: Regular rate and rhythm. S1 and S2 heard. Systolic murmur noted. EXTREMITIES: Normal range of motion. No clubbing or cyanosis. Peripheral pulses intact. No lower extremity edema ASSESSMENT: Hypertensive crisis Chest pain, troponin negative x 2, chest pain most likely due to hypertensive crisis rule out severe coronary artery disease Coronary artery disease with previous stenting of the LAD, May 2021 Hypertension Hyperlipidemia Hypothyroidism Minimally elevated AST History of GERD PLAN: Discontinue as needed hydralazine Begin scheduled hydralazine 50 mg twice a day Patient has been started on amlodipine per primary medicine Continue losartan 50 mg twice a day Continue to monitor blood pressure If patient has recurrence of chest pain, will consider cardiac catheterization Further recommendations pending patient course Nurse practitioner note has been reviewed by physician. Signing provider agrees with the documented findings, assessment, and plan of care documented by MEDICAL STAFF CREDENTIALING COORDINATOR as a scribe. Objective - Vital Signs Vital signs: Vital Signs Temp 97.4 F L 12/28/23 09:50 Pulse 77 12/28/23 11:17 Resp 17 12/28/23 11:17 BP 157/89 12/28/23 13:09 Pulse Ox 95 12/28/23 11:17 FiO2 Intake & Output 12/27/23 12/28/23 12/28/23 18:59 06:59 18:59 Intake Total 118 240 240 Balance 118 240 240 Weight 97.976 kg Intake: Oral 118 240 240 Other: Voiding Method Toilet # Voids 2 - Labs CBC & Chem 7: 12/27/23 01:36 12/28/23 08:57 Labs: Abnormal Lab Results - Last 24 Hours (Table) 12/28/23 Range/Units 08:57 Sodium 129 L (137-145) mmol/L Carbon Dioxide 20 L (22-30) mmol/L BUN 18 H (7-17) mg/dL Glucose 138 H (74-99) mg/dL Alkaline Phosphatase 153 H (38-126) U/L
[2023-12-28 15:27] LABS: Chol/HDL Ratio 3.13 Ratio; LDL Cholesterol,Calculated 99.5 mg/dL (0.0-131.0)
[2023-12-28] MEDS ORDERED: ALPRAZolam 0.25 MG TAB PO PRN (17:29)
[2023-12-28] MEDS: ONDANSETRON 4 MG TAB PO PRN (17:44)
[2023-12-28] MEDS: PANTOPRAZOLE 40 MG TABLET PO SCH (17:44)
[2023-12-28] MEDS: ONDANSETRON 4 MG/2 ML VIAL IVP PRN (18:13)
[2023-12-28] MEDS ORDERED: LOSARTAN 50 MG TAB PO SCH ×2 (21:00)
[2023-12-29] MEDS: LEVOTHYROXINE 112 MCG TAB PO SCH (05:54)
--- NOTE | 2023-12-29 07:14 | P.PN ---
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 She call 911 presented to the emergency department with anginal symptoms,Mid sternal burning lasted until made it to the ER and Improved with NTG, was seen and evaluated. Her history her EKG did not show any significant ST elevation, laboratory evaluation shows normal CBC, chemistry, mildly elevated alkaline phosphatase and ALT with negative troponin no BNP was done. Chest x-ray shows no major abnormality. With patient history of angioplasty and stent along with current presentation patient will be admitted to the hospital, CK troponin x 3 be done, will keep patient n.p.o. until she sees cardiology to decide on the best action plan she might have repeat echocardiogram to develop any worsening symptoms she needed further Lab if there is any abnormality heart catheter would be advisable otherwise depend on her last stress test will decide on further management. 12/28/2023: Patient is not feeling good despite full workup for her angina came back negative and was cleared by cardiology for no further workup continue to struggle not feeling well at all her blood pressure continued to be extremely high And has been complaining of more lightheadedness and dizziness and severe disequilibrium. Try to switch her losartan to valsartan initially she claims she had severe reaction to it could not stand up and walk switch the medication back to losartan continue to have quite good high blood pressure medication were switched around again by adding hydralazine up to 50 mg twice a day amlodipine 5 mg and keep using hydralazine on demand for systolic blood pressure above 150 by then the patient become extremely dizzy lightheaded and started having more symptoms. Her further workup for abnormal liver function test came back with normal liver ultrasound. Echocardiogram still showing ejection fraction of 50 percentile and low and low normal with no wall motion abnormality at this point but I believe admit patient had she had more component of angina will require further workup at least stress test as an outpatient with Dr. Navarro will be arranged. I could not have patient sit on the side of the bed stand up because become more symptomatic in the asking for MRI of the brain at the time neurology consultation patient be kept in the hospital for another day for further workup till her symptoms are clear, blood pressure is better and at least we have some workup on her severe dizziness not controlled at this point which pretty much can be either vestibulopathy can be reaction to the blood pressure being high causing her to have quite a bit of problem with her equilibrium. REVIEW OF SYSTEMS: CONSTITUTIONAL: Overweight no acute respiratory distress. EYES: No icterus sclerae, no conjunctivitis. Sublungual EARS, NOSE, MOUTH, THROAT, and FACE: No sore throat, lymphadenopathy, carotid bruits or deformity. RESPIRATORY: Positive shortness of breath no cough or wheezes. CARDIOVASCULAR: Positive chest pain and PND with orthopnea and angina. GASTROINTESTINAL: No Abd pain, Nausea or vomiting, no Diarrhea or constipation, No GI Bleed, no distention or masses. GENITOURINARY: Negative for Hematuria or UTI, no kidney stones. INTEGUMENT/BREAST: Negative for any muscular injury with mild osteoarthritis.. HEMATOLOGIC/LYMPHATIC: Negative for bleed or purpura. MUSCULOSKELTAL: Negative for Myalgia or arthralgia. NEURLOGICAL: No LOC, Sz or syncope, blurred vision dizziness or abnormality.. BEHAVIORAL/PSYCH: Negative. ENDOCRINE: Negative. PHYSICAL EXAMINATION: General Appearance: Alert, cooperative, no distress, appears stated age. Neck HEENT: Supple, no lymphadenopathy, no thyroid enlargement, no carotid bruits. Lungs: Clear to auscultation without crackles or wheezes no rhonchi, no de formity. Chest Wall: Chest wall normal expansion with deep inspiration no tenderness and no deformity was found on exam, no costochondral pain or discomfort. Heart: Regular rate and rhythm, S1, S2 normal, no murmur, rub or gallop. Back: Symmetric, no curvature, ROM normal, no CVA tenderness. Abdomen: Soft, non-tender, bowel sounds active all four quadrants, no masses, no organomegaly. Extremities: Extremities normal, atraumatic, no cyanosis or edema. Pulses: 2+ and symmetric. Skin: Skin color, texture, tugor normal, no rashes or lesions. Neurologic: Alert oriented x3 cranial nerves II through XII intact, no motor deficit, no abnormal balance or gait. ASSESSMENT AND PLAN: _Chest pain and angina: Negative troponin with echocardiogram showed ejection fraction to be in the marginal low normal patient symptoms probably need to be dealt with more caution by probably at least running stress test as an outpatient and watching her carefully when she ambulate to make sure she does not become more symptomatic. _Severe urgent hypertension: Not well-controlled currently on medication Switch her medication to valsartan patient had severe reaction. Back on losartan and titrate dose up to 100 mg twice a day metoprolol titrate remain at 50 mg at bedtime she had hydralazine added at 50 mg twice a day and amlodipine 5 mg daily she seems not to react to this 4 mg much at this point we will continue medication make sure her systolic blood pressure at least below 140. _Severe dizziness: When tried to do her vestibular exam she became quite bit symptomatic both at her best nystagmus was quite bit on the patient had severe reaction to trying to move her head even when she is lying in bed. Patient will be seen neurology will ask for an MRI of the brain to make sure not have any central nervous system component causing any problem. _Atherosclerotic heart disease post angioplasty and stent placement of the LAD back in June 10, 2021: Patient has been On secondary prevention with medication has been on metoprolol, losartan, atorvastatin, Plavix and Zetia. _Severe anxiety and panic: Become quite a bit emotional this time when she is sick patient will have some alprazolam on as-needed basis to control her sympt oms. _Severe nausea and vomiting with intractable symptoms could not control her nausea even with Zofran orally given patient be kept in the hospital continue hydration and Zofran IV along with PPI and introduce clear liquid gradually. _Hyperlipidemia: Still on Zetia) milligram a day along with atorvastatin 20 mg a day. _Hypothyroidism: Resume levothyroxine 112 mcg in the a.m. and half tablet at bedtime every other day. _Severe GERD: Has been on omeprazole 20 mg daily. _Abnormal liver function test: Not clear whether this is side effect of medication or AFBIAN might do liver ultrasound repeat liver function test and probably hepatitis panel be done. _GI prophylaxis: Patient will be on omeprazole 20 mg a day. _DVT prophylaxis: Knee-high ASHLEY hose and early mobilization. Prognosis: Good. Discussion: Patient came in with typical anginal symptoms her testing are negative her blood pressure become quite bit high With her she had her chest pain related to uncontrolled hypertension further testing with cardiology specially stress test need to be done to exclude any other possibility especially with her cardiac disease and symptoms. Patient had severe vestibular symptoms with quite a bit urgent hypertension and severe anxiety not been able to move and continue to have severe intractable nausea and vomiting. When pushing her losartan up to 100 mg twice a day which is higher than the recommended dose and having hydralazine 50 mg twice a day Lopressor 50 mg daily and amlodipine 5 daily her blood pressure settled down may be all the adjustment with the medication created more neurologic symptoms at this point. Will watch patient for at least another 24 hours consult neurology MRI of the brain will be done to exclude any central nervous system component and patient will have an arrangement for outpatient stress test when she is she is discharged. Discharge expected hopefully if all are negative on Sunday patient to be seen in the office by [facility]ology in short period of time. Objective - Vital Signs Vital signs: Vital Signs Temp 97.7 F 12/28/23 23:56 Pulse 70 12/29/23 04:20 Resp 16 12/29/23 04:20 BP 132/71 12/29/23 04:20 Pulse Ox 94 L 12/29/23 04:20 FiO2 Intake & Output 12/28/23 12/29/23 12/29/23 18:59 06:59 18:59 Intake Total 720 10 Balance 720 10 Intake: IV 10 Invasive Line 1 10 Oral 720 Other: Voiding Method Toilet # Voids 1 - Labs CBC & Chem 7: 12/27/23 01:36 12/28/23 08:57 Labs: Abnormal Lab Results - Last 24 Hours (Table) 12/28/23 Range/Units 08:57 Sodium 129 L (137-145) mmol/L Carbon Dioxide 20 L (22-30) mmol/L BUN 18 H (7-17) mg/dL Glucose 138 H (74-99) mg/dL Alkaline Phosphatase 153 H (38-126) U/L
[2023-12-29 10:50] LABS: African American GFR (CKD) 80 (>60 ml/min/1.73 sqM); Anion Gap 11 mmol/L; Blood Urea Nitrogen 25 mg/dL (7-17); Calcium 9.5 mg/dL (8.4-10.2); Carbon Dioxide 20 mmol/L (22-30); Chloride 94 mmol/L (98-107); Glucose 93 mg/dL (74-99); Non-African American GFR(CKD) 69 (>60 ml/min/1.73 sqM); Sodium 125 mmol/L (137-145)
[2023-12-29 10:54] LABS: Potassium 4.4 mmol/L (3.5-5.1)
--- NOTE | 2023-12-29 11:58 | P.PN ---
Subjective HISTORY OF PRESENT ILLNESS: This is a 73-year-old female with a past medical history significant for coronary artery disease, hypertension, hyperlipidemia, and hypothyroidism. Patient follows in the office with Dr. Navarro. We have been asked to see the patient in consultation for chest pain. Patient examined at the bedside in the emergency room. Patient states that she woke up from a sleep last night with heaviness in her chest. She also experienced difficulty in breathing. This is her first episode that she has had. She also had shaking and sweating. She denies having any lightheadedness, dizziness, syncope. She states that her bl ood pressures have been running high and had recently followed up with Edilia DAVALOS at Dr. Kennedy's office. She states her blood pressure has been running 170/90. She states she has been taking all of her medications as directed and following a no added salt diet. She denies any abdominal pain. It is noted that the patient's blood pressures have been elevated since coming to the hospital with a systolic ranging between [id number]. DIAGNOSTICS: - EKG reveals sinus mechanism with no signs of acute ischemia. - Chest xray negative for acute process - Laboratory data: WBC 9.8. Hemoglobin 13.6. Hemoglobin 13.6. Sodium 132. Potassium 4.9. BUN 27. Creatinine 0.77. Magnesium 2.0. AST 39. ALT 28. Alkaline phosphatase 171. Troponin negative x 2. - Current home cardiac medications include losartan 50 mg twice a day, metoprolol tartrate 50 mg at night, aspirin 81 mg daily, Zetia 10 mg daily - Most recent echocardiogram obtained in May 2023 revealing normal EF, mild TR, mild to moderate MR - Cardiac catheterization history: May 2021 with stenting to the proximal LAD x 2 12/28/2023 Patient examined this morning at the bedside. Patient denies having any chest pain or pressure this morning. She denies any shortness of breath. She does report having a headache and feels dizzy this morning. Patient's blood pressures continue to remain uncontrolled. Echocardiogram completed revealing ejection fraction 50%, mild to moderate mitral regurgitation, and mild pulm hypertension 12/29/2023 Patient examined this morning at the bedside. Per nursing, patient's systolic blood pressure this morning was in the 90s. The patient reports feeling lightheaded this morning although it is improved. She denies chest pain or pressure. Telemetry reveals sinus mechanism. PHYSICAL EXAM: VITAL SIGNS: Reviewed. GENERAL: Well-developed in no acute distress. NECK: Supple. No JVD or thyromegaly LUNGS: Respirations even and unlabored. Lungs essentially clear to auscultation bilaterally. HEART: Regular rate and rhythm. S1 and S2 heard. Systolic murmur noted. EXTREMITIES: Normal range of motion. No clubbing or cyanosis. Peripheral pulses intact. No lower extremity edema ASSESSMENT: Hypertensive crisis Chest pain, troponin negative x 2, chest pain most likely due to hypertensive crisis rule out severe coronary artery disease Coronary artery disease with previous stenting of the LAD, May 2021 Hypertension Hyperlipidemia Hypothyroidism Minimally elevated AST History of GERD Dizziness, suspect secondary to hypotension, resolved Hypotension, resolved PLAN: Discontinue amlodipine Continue hydralazine 50 mg twice a day. Hold for systolic blood pressure less than 120. Continue losartan 50 mg twice a day. Do not increase losartan dosing beyond 50mg BID. Continue to monitor blood pressure If patient has recurrence of chest pain, will consider cardiac catheterization Further recommendations pending patient course Nurse practitioner note has been reviewed by physician. Signing provider agrees with the documented findings, assessment, and plan of care documented by [employer] as a scribe. Objective - Vital Signs Vital signs: Vital Signs Temp 97.9 F 12/29/23 08:05 Pulse 71 12/29/23 08:05 Resp 16 12/29/23 08:05 BP 104/56 12/29/23 08:05 Pulse Ox 96 12/29/23 08:05 FiO2 Intake & Output 12/28/23 12/29/23 12/29/23 18:59 06:59 18:59 Intake Total 720 10 118 Balance 720 10 118 Intake: IV 10 Invasive Line 1 10 Oral 720 118 Other: Voiding Method Toilet # Voids 1 - Labs CBC & Chem 7: 12/27/23 01:36 12/29/23 10:22 Labs: Abnormal Lab Results - Last 24 Hours (Table) 12/29/23 Range/Units 10:22 Sodium 125 L (137-145) mmol/L Chloride 94 L (98-107) mmol/L Carbon Dioxide 20 L (22-30) mmol/L BUN 25 H (7-17) mg/dL
[2023-12-29] MEDS: LOSARTAN 50 MG TAB PO SCH (12:12)
--- NOTE | 2023-12-29 13:37 | P.CNNES ---
History of Present Illness Consult date: 12/29/23 Requesting physician: Ricky Kennedy Reason for Consult: Severe dizziness History of Present Illness: Patient is a 73-year-old female came to the hospital by ambulance 2 days ago, 12/27/2023 at 1:08 AM for chest pain, shortness of breath. Neurologically patient had no complaints. Patient states that she woke up at around midnight after 45 minutes sleep, with a funny feeling, sweating, chest pain, as if somebody sitting on her chest. She also had difficulty breathing and was shaking. She called the ambulance. As per EMS flowsheet, when they arrived patient was alert and orient x 4, complaining of 8/10 chest pressure and mild shortness of breath. Patient stated that started about 10 minutes ago while laying in the bed and was nonradiating. Patient has history of cardiac stents and hypertension. Patient was given aspirin 324 mg. Vital signs at the scene was blood pressure 230/120, which came down to 173/119. Pulse rate 74 respiration 20 saturation 98% blood sugar 101. Vital signs arrival blood pressure 155/115, came up to 171/79. Pulse rate 85. Temperature 97.8. Blood test shows normal CBC PT PTT, sodium 132 potassium 4.9, normal creatinine 0.77, mildly elevated BUN 27. AST normal ALT minimally elevated 39. Troponin negative. EKG shows sinus rhythm. Chest x-ray normal. Ultrasound liver showed hepatomegaly. Possible peripelvic cyst in the right renal pelvis. Venous Doppler negative for DVT. Patient had significantly elevated blood pressure in the ER. Patient received multiple medications to control her blood pressure. When patient arrived to the floor, she had already received many blood pressure medication. Patient states that her blood pressure dropped, and she became intensely dizzy, sick to stomach and threw up. Patient did not have any dizziness when she arrived to the hospital, or even in the ER. It happened while she came up on the floor. There were no associated focal symptoms like slurred speech, facial droop, loss of vision, focal numbness tingling or weakness. Patient's dizziness have resolved. No previous history of dizziness, strokes or TIA. Patient does take aspirin 81 mg daily. Patient had a VNG performed on 10/23/2016 which was minimal abnormalities of borderline break-ups on tracking and very mild vertical nystagmus on both the right side and left side in position testing with vision denied. Abnormalities may correspond with mild to borderline central nervous system dysfunction. No definitive evidence for vestibulopathy on testing. Review of Systems All review of systems unremarkable except as mentioned in HPI. She does have arthritis and history of rotator cuff tears in the past. Also had some cervical radiculopathy. Past Medical History Past Medical History: GERD/Reflux, Hypertension, Osteoarthritis (OA), Thyroid Disorder Additional Past Medical History / Comment(s): having pain to neck and shoulders with numbness to left arm and fingers, having increased SOB and fatigue, had stress test and echo Mar 2021, had covid infection November 2020,,hx hiatal hernia,varicose veins History of Any Multi-Drug Resistant Organisms: None Reported Past Surgical History: Joint Replacement, Tonsillectomy Additional Past Surgical History / Comment(s): corrective eye surgery for crossed eye, TOTAL LEFT KNEE Past Anesthesia/Blood Transfusion Reactions: Previous Problems w/ Anesthesia, Motion Sickness, Postoperative Nausea & Vomiting (PONV) Additional Past Anesthesia/Blood Transfusion Reaction / Comment(s): headache wi th anesthesia,no hx blood transfusion, "Severe motion sickness" Past Psychological History: Anxiety Smoking Status: Never smoker Past Alcohol Use History: None Reported Past Drug Use History: None Reported - Past Family History Sister(s) Family Medical History: Cancer Additional Family Medical History / Comment(s): breast Mother Family Medical History: No Reported History Father Family Medical History: Myocardial Infarction (SD) Additional Family Medical History / Comment(s): at age 60 Medications and Allergies Home Medications Medication Instructions Recorded Confirmed Type Acetaminophen Tab [Tylenol] 1,000 mg PO BID@1400,1930 09/29/15 12/27/23 History Levothyroxine Sodium [Synthroid] 112 mcg PO MOWEFR@0630 09/29/15 12/27/23 History Metoprolol Tartrate [Lopressor] 50 mg PO HS 09/29/15 12/27/23 History Multivit-Min/FA/Lycopen/Lutein 1 tab PO DAILY 09/29/15 12/27/23 History [Centrum Silver Tablet] Levothyroxine Sodium [Synthroid] 56 mcg PO SUTUTHSA@0630 01/10/17 12/27/23 History Omeprazole 20 mg PO DAILY 03/15/21 12/27/23 History Aspirin EC [Ecotrin Low Dose] 81 mg PO DAILY@1900 12/27/23 12/27/23 History Carboxymethylcellulos/Glycerin 2 drop BOTH EYES DAILY@1300 12/27/23 12/27/23 History [Refresh Relieva 0.5-0.9% Drop] Cetirizine HCl [Zyrtec] 10 mg PO HS 12/27/23 12/27/23 History Ezetimibe [Zetia] 10 mg PO DAILY@1900 12/27/23 12/27/23 History Ibuprofen [Advil] 400 mg PO HS 12/27/23 12/27/23 History Propylene Glycol/Peg 400 [Systane 2 drop BOTH EYES BID@0830,1930 12/27/23 12/27/23 History Ultra 0.4-0.3% Eye Drp] Sodium Chloride 5% Ophth Soln 1 drops BOTH EYES HS 12/27/23 12/27/23 History [Sony 128] Systane Nightime Lubricant 1 drop BOTH EYES HS 12/27/23 12/27/23 History Atorvastatin [Lipitor] 20 mg PO HS #30 tab 12/28/23 Rx Clopidogrel [Plavix] 75 mg PO DAILY #30 tab 12/28/23 Rx Losartan [Cozaar] 50 mg PO BID tab 12/28/23 Rx Nitroglycerin Sl Tabs [Nitrostat] 0.4 mg SUBLINGUAL Q5M PRN #25 tab 12/28/23 Rx amLODIPine [Norvasc] 5 mg PO DAILY #30 tab 12/28/23 Rx hydrALAZINE HCL [Apresoline] 25 mg PO QID PRN #60 tab 12/28/23 Rx hydrALAZINE HCL [Apresoline] 50 mg PO BID #60 tab 12/28/23 Rx Allergies Allergy/AdvReac Type Severity Reaction Status Date / Time adhesive Allergy skin Verified 12/27/23 07:45 redness and itching cyclosporine [From Restasis] Allergy "made me Verified 12/27/23 07:45 feel like I was drunk" Penicillins Allergy Anaphylaxis Verified 12/27/23 07:45 Sulfa (Sulfonamide Allergy Anaphylaxis Verified 12/27/23 07:45 Antibiotics) Physical Examination - Vital Signs Vital Signs: Vital Signs Temp Pulse Resp BP Pulse Ox 12/29/23 08:05 97.9 F 71 16 104/56 96 12/29/23 04:20 70 16 132/71 94 L 12/29/23 02:04 83 12/28/23 23:56 97.7 F 89 18 120/73 97 12/28/23 19:46 94 12/28/23 19:45 97.6 F 94 18 114/71 96 12/28/23 16:33 129/76 12/28/23 15:34 72 16 128/73 98 12/28/23 14:48 166/96 12/28/23 13:09 157/89 12/28/23 11:17 77 17 179/86 95 Intake and Output 12/28/23 12/29/23 12/29/23 22:59 06:59 14:59 Intake Total 10 118 Balance 10 118 Intake: IV 10 Invasive Line 1 10 Oral 118 Other: Voiding Method Toilet Toilet # Voids 1 1 Patient is an elderly female, very pleasant, in no acute distress. Patient is alert awake oriented to time place and person. Speech and language functions are normal. Patient can name and repeat very well. No aphasia or dysarthria. Attention, concentration and fund of knowledge is adequate. On cranial nerve examination, pupils are equal, round and reacting to light, visual alanis are full on confrontation, with no neglect on double simultaneous stimulation. Extraocular muscles are intact with no nystagmus. Face is symmetric, tongue protrudes to the midline. Palatal elevation and sensation no rmal, hearing and shoulder shrug normal, facial sensation normal. On muscle strength testing, there is no pronator drift and the strength is normal in arms and legs distally and proximally, except bilateral shoulder which are weak from previous rotator cuff injuries. Deep tendon reflexes are symmetric 1 at the biceps and brachioradialis, trace in the lower limbs and plantars downgoing. Sensory to touch is equal with no neglect on double simultaneous stimulation. Cerebellar function showed no ataxia for [id number] testing. No dysdiadochokinesia. No ataxia for [id number] testing on either side. Tone and bulk of muscles normal. Gait deferred.. On general examination, there is no carotid bruit heard on either side. There is no murmur, S1-S2 audible. Chest is clear on consultation. Abdomen is soft nontender. No organomegaly, bowel sounds present. Peripheral pulses are p resent. No peripheral edema. Results - Laboratory Findings CBC and BMP: 12/27/23 01:36 12/30/23 05:56 Abnormal Lab Findings: Abnormal Labs 12/27/23 12/28/23 12/29/23 01:36 08:57 10:22 Sodium 132 L 129 L 125 L Chloride 94 L Carbon Dioxide 19 L 20 L 20 L BUN 27 H 18 H 25 H Glucose 138 H ALT 39 H Alkaline Phosphatase 171 H 153 H Assessment and Plan Assessment: * Acute onset of dizziness with nausea, vomiting, occurred after patient received blood pressure medication for uncontrolled blood pressure in the hospital. Uncertain if dizziness from lowering blood pressure, rule out cerebellar stroke/TIA. Current examination is nonfocal. * Acute onset of chest pain, sweating, difficulty breathing, rule out cardiac c ause (presenting symptoms). * Accelerated hypertension * Hyperlipidemia, borderline, LDL 99. * Hyponatremia Plan: * Patient was on aspirin 80 mg daily. Apparently Plavix has been added. * Patient undergoing MRI of the brain rule out CVA (initiated by primary physician). * 2D echo revealed low normal LV systolic function with EF at 50%. Mild to moderate MR with posterior directed jet. Mild pulmonary hypertension. Moderately increased left atrial volume. * Optimize control of blood pressure to normotensive level. * Lipid panel with cholesterol 179, LDL 99, HDL 57 and triglycerides 112. Continue Lipitor 40 mg daily. * Neurology will follow. Thank you for the consult.
--- NOTE | 2023-12-29 13:39 | P.PN ---
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 She call 911 presented to the emergency department with anginal symptoms,Mid sternal burning lasted until made it to the ER and Improved with NTG, was seen and evaluated. Her history her EKG did not show any significant ST elevation, laboratory evaluation shows normal CBC, chemistry, mildly elevated alkaline phosphatase and ALT with negative troponin no BNP was done. Chest x-ray shows no major abnormality. With patient history of angioplasty and stent along with current presentation patient will be admitted to the hospital, CK troponin x 3 be done, will keep patient n.p.o. until she sees cardiology to decide on the best action plan she might have repeat echocardiogram to develop any worsening symptoms she needed further Lab if there is any abnormality heart catheter would be advisable otherwise depend on her last stress test will decide on further management. 12/28/2023: Patient is not feeling good despite full workup for her angina came back negative and was cleared by cardiology for no further workup continue to struggle not feeling well at all her blood pressure continued to be extremely high And has been complaining of more lightheadedness and dizziness and severe disequilibrium. Try to switch her losartan to valsartan initially she claims she had severe reaction to it could not stand up and walk switch the medication back to losartan continue to have quite good high blood pressure medication were switched around again by adding hydralazine up to 50 mg twice a day amlodipine 5 mg and keep using hydralazine on demand for systolic blood pressure above 150 by then the patient become extremely dizzy lightheaded and started having more symptoms. Her further workup for abnormal liver function test came back with normal liver ultrasound. Echocardiogram still showing ejection fraction of 50 percentile and low and low normal with no wall motion abnormality at this point but I believe admit patient had she had more component of angina will require further workup at least stress test as an outpatient with Dr. Navarro will be arranged. I could not have patient sit on the side of the bed stand up because become more symptomatic in the asking for MRI of the brain at the time neurology consultation patient be kept in the hospital for another day for further workup till her symptoms are clear, blood pressure is better and at least we have some workup on her severe dizziness not controlled at this point which pretty much can be either vestibulopathy can be reaction to the blood pressure being high causing her to have quite a bit of problem with her equilibrium. 12/28. Patient seen and examined. Patient blood pressure has improved. Dizziness has resolved. Denies any lightheadedness. REVIEW OF SYSTEMS: CONSTITUTIONAL: No fever, no malaise,. CARDIOVASCULAR: No chest pain, no palpitations, no syncope. PULMONARY: No shortness of breath, no cough, GASTROINTESTINAL: No diarrhea, no nausea, no vomiting, no abdominal pain. NEUROLOGICAL: No headaches, no weakness, PHYSICAL EXAMINATION: GENERAL: The patient is alert and oriented x3, not in any acute distress. Well developed, well nourished. HEENT: Pupils are round and equally reacting to light. EOMI. No scleral icterus. No conjunctival pallor. Normocephalic, atraumatic. No pharyngeal erythema. No thyromegaly. CARDIOVASCULAR: S1 and S2 present. No murmurs, rubs, or gallops. PULMONARY: Chest is clear to auscultation, no wheezing or crackles. ABDOMEN: Soft, nontender, nondistended, normoactive bowel sounds. No palpable organomegaly. MUSCULOSKELETAL: No joint swelling or deformity. EXTREMITIES: No cyanosis, clubbing, or pedal edema. NEUROLOGICAL: Gross neurological examination did not reveal any focal deficits. SKIN: No rashes. Assessment and plan _Chest pain and angina: Negative troponin with echocardiogram showed ejection fraction to be in the marginal low normal patient symptoms probably need to be dealt with more caution by probably at least running stress test as an outpatient and watching her carefully when she ambulate to make sure she does not become more symptomatic. _Severe urgent hypertension: Continue losartan, Lopressor, hydralazine _Severe dizziness: MRI brain ordered Neurology consulted _Atherosclerotic heart disease post angioplasty and stent placement of the LAD back in June 10, 2021: Continue metoprolol, losartan, atorvastatin, Plavix and Zetia. _Severe anxiety and panic: Continue e alprazolam on as-needed basis to control her symptoms. _Severe nausea and vomiting with intractable symptoms Continue antiemetics _Hyperlipidemia: Still on Zetia) milligram a day along with atorvastatin 20 mg a day. _Hypothyroidism: Resume levothyroxine 112 mcg in the a.m. and half tablet at bedtime every other day. _Severe GERD: Has been on omeprazole 20 mg daily. _Abnormal liver function test: Not clear whether this is side effect of medication or FABIAN might do liver ultrasound repeat liver function test and probably hepatitis panel be done. _GI prophylaxis: Patient will be on omeprazole 20 mg a day. _DVT prophylaxis: Knee-high ASHLEY hose and early mobilization. Labs and medication were reviewed.. Continue same treatment. Continue with symptomatic treatment. Resume home medication. Monitor labs and vitals. DVT a nd GI prophylaxis. Further recommendations as per clinical course of the patient Dictation was produced using [employer] dictation software. please excuse any grammatical, word or spelling errors. Objective - Vital Signs Vital signs: Vital Signs Temp 97.9 F 12/29/23 08:05 Pulse 71 12/29/23 08:05 Resp 16 12/29/23 08:05 BP 104/56 12/29/23 08:05 Pulse Ox 96 12/29/23 08:05 FiO2 Intake & Output 12/28/23 12/29/23 12/29/23 18:59 06:59 18:59 Intake Total 720 10 118 Balance 720 10 118 Intake: IV 10 Invasive Line 1 10 Oral 720 118 Other: Voiding Method Toilet # Voids 1 - Labs CBC & Chem 7: 12/27/23 01:36 12/29/23 10:22
--- NOTE | 2023-12-29 14:36 | MR ---
EXAMINATION TYPE: MR brain wo/w con DATE OF EXAM: 12/29/2023 COMPARISON: None HISTORY: Dizziness. CONTRAST: Performed utilizing 9.5 mL intravenous Gadavist gadolinium contrast. There appears to be extravasation of contrast on this examination. There is some contrast present on the postcontrast larry ging. TECHNIQUE: Multiplanar, multiecho imaging on a 3.0 Fina magnet is performed through the brain. Stud y is performed within 24 hours of arrival to the hospital. The craniovertebral junction is normal. The pituitary is normal. Optic chiasm appears normal Diffusion-weighted imaging is performed. No abnormal hyperintensity is present to suggest an acute i ntracranial infarct or acute ischemic change. There are scattered punctate areas of hyperintensity on T2 and Inversion Recovery weighted sequences which are non-specific but can be related to microvascular ischemic changes. Ventricles and sulci are appropriate for the patient age. No abnormal enhancement is evident. IMPRESSION: 1. No acute intracranial processes pre or postcontrast MRI brain. Postcontrast images may be slightly limited.
[2023-12-29] MEDS: ATORVASTATIN 40 MG TAB PO SCH (21:37)
[2023-12-30 06:46] LABS: African American GFR (CKD) 67 (>60 ml/min/1.73 sqM); Anion Gap 9 mmol/L; Blood Urea Nitrogen 31 mg/dL (7-17); Carbon Dioxide 21 mmol/L (22-30); Chloride 95 mmol/L (98-107); Glucose 98 mg/dL (74-99); Non-African American GFR(CKD) 58 (>60 ml/min/1.73 sqM); Potassium 4.1 mmol/L (3.5-5.1); Sodium 125 mmol/L (137-145)
--- NOTE | 2023-12-30 10:41 | P.PN ---
Subjective HISTORY OF PRESENT ILLNESS: This is a 73-year-old female with a past medical history significant for coronary artery disease, hypertension, hyperlipidemia, and hypothyroidism. Patient follows in the office with Dr. Navarro. We have been asked to see the patient in consultation for chest pain. Patient examined at the bedside in the emergency room. Patient states that she woke up from a sleep last night with heaviness in her chest. She also experienced difficulty in breathing. This is her first episode that she has had. She also had shaking and sweating. She denies having any lightheadedness, dizziness, syncope. She states that her bl ood pressures have been running high and had recently followed up with Edilia DAVALOS at Dr. Kennedy's office. She states her blood pressure has been running 170/90. She states she has been taking all of her medications as directed and following a no added salt diet. She denies any abdominal pain. It is noted that the patient's blood pressures have been elevated since coming to the hospital with a systolic ranging between [id number]. DIAGNOSTICS: - EKG reveals sinus mechanism with no signs of acute ischemia. - Chest xray negative for acute process - Laboratory data: WBC 9.8. Hemoglobin 13.6. Hemoglobin 13.6. Sodium 132. Potassium 4.9. BUN 27. Creatinine 0.77. Magnesium 2.0. AST 39. ALT 28. Alkaline phosphatase 171. Troponin negative x 2. - Current home cardiac medications include losartan 50 mg twice a day, metoprolol tartrate 50 mg at night, aspirin 81 mg daily, Zetia 10 mg daily - Most recent echocardiogram obtained in May 2023 revealing normal EF, mild TR, mild to moderate MR - Cardiac catheterization history: May 2021 with stenting to the proximal LAD x 2 12/28/2023 Patient examined this morning at the bedside. Patient denies having any chest pain or pressure this morning. She denies any shortness of breath. She does report having a headache and feels dizzy this morning. Patient's blood pressures continue to remain uncontrolled. Echocardiogram completed revealing ejection fraction 50%, mild to moderate mitral regurgitation, and mild pulm hypertension 12/29/2023 Patient examined this morning at the bedside. Per nursing, patient's systolic blood pressure this morning was in the 90s. The patient reports feeling lightheaded this morning although it is improved. She denies chest pain or pressure. Telemetry reveals sinus mechanism. 12/30/2023 Patient examined this morning. She is sitting up in the chair. Patient currently denies chest pain or pressure. She denies shortness of breath. Patient states yesterday after receiving her hydralazine she began to feel unwell and thinks that her adverse side effects are due to the hydralazine. Blood pressure this morning 108/64. PHYSICAL EXAM: VITAL SIGNS: Reviewed. GENERAL: Well-developed in no acute distress. NECK: Supple. No JVD or thyromegaly LUNGS: Respirations even and unlabored. Lungs essentially clear to auscultation bilaterally. HEART: Regular rate and rhythm. S1 and S2 heard. Systolic murmur noted. EXTREMITIES: Normal range of motion. No clubbing or cyanosis. Peripheral pulses intact. No lower extremity edema ASSESSMENT: Hypertensive crisis Chest pain, troponin negative x 2, chest pain most likely due to hypertensive crisis rule out severe coronary artery disease Coronary artery disease with previous stenting of the LAD, May 2021 Hypertension Hyperlipidemia Hypothyroidism Minimally elevated AST History of GERD Dizziness, suspect secondary to hypotension, resolved Hypotension, resolved PLAN: Amlodipine discontinued yesterday secondary to decreased blood pressure Discontinue hydralazine today as patient states it is causing her adverse side effects Continue current dose of losartan Continue to monitor blood pressure No plans for cardiac catheterization at this time. If patient has recurrence of chest pain, will consider cardiac catheterization Further recommendations pending patient course Nurse practitioner note has been reviewed by physician. Signing provider agrees with the documented findings, assessment, and plan of care documented by WOOL CLASSER as a scribe. Objective - Vital Signs Vital signs: Vital Signs Temp 97.9 F 12/29/23 08:05 Pulse 69 12/30/23 09:20 Resp 16 12/30/23 09:20 BP 108/64 12/30/23 09:20 Pulse Ox 96 12/30/23 09:20 FiO2 Intake & Output 12/29/23 12/30/23 12/30/23 18:59 06:59 18:59 Intake Total 894 10 220 Balance 894 10 220 Intake: IV 10 Invasive Line 2 10 Oral 894 220 Other: Voiding Method Toilet # Voids 1 - Labs CBC & Chem 7: 12/27/23 01:36 12/30/23 05:56 Labs: Abnormal Lab Results - Last 24 Hours (Table) 12/29/23 12/30/23 Range/Units 10:22 05:56 Sodium 125 L 125 L (137-145) mmol/L Chloride 94 L 95 L (98-107) mmol/L Carbon Dioxide 20 L 21 L (22-30) mmol/L BUN 25 H 31 H (7-17) mg/dL
--- NOTE | 2023-12-30 13:40 | P.PN ---
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 She call 911 presented to the emergency department with anginal symptoms,Mid sternal burning lasted until made it to the ER and Improved with NTG, was seen and evaluated. Her history her EKG did not show any significant ST elevation, laboratory evaluation shows normal CBC, chemistry, mildly elevated alkaline phosphatase and ALT with negative troponin no BNP was done. Chest x-ray shows no major abnormality. With patient history of angioplasty and stent along with current presentation patient will be admitted to the hospital, CK troponin x 3 be done, will keep patient n.p.o. until she sees cardiology to decide on the best action plan she might have repeat echocardiogram to develop any worsening symptoms she needed further Lab if there is any abnormality heart catheter would be advisable otherwise depend on her last stress test will decide on further management. 12/28/2023: Patient is not feeling good despite full workup for her angina came back negative and was cleared by cardiology for no further workup continue to struggle not feeling well at all her blood pressure continued to be extremely high And has been complaining of more lightheadedness and dizziness and severe disequilibrium. Try to switch her losartan to valsartan initially she claims she had severe reaction to it could not stand up and walk switch the medication back to losartan continue to have quite good high blood pressure medication were switched around again by adding hydralazine up to 50 mg twice a day amlodipine 5 mg and keep using hydralazine on demand for systolic blood pressure above 150 by then the patient become extremely dizzy lightheaded and started having more symptoms. Her further workup for abnormal liver function test came back with normal liver ultrasound. Echocardiogram still showing ejection fraction of 50 percentile and low and low normal with no wall motion abnormality at this point but I believe admit patient had she had more component of angina will require further workup at least stress test as an outpatient with Dr. Navarro will be arranged. I could not have patient sit on the side of the bed stand up because become more symptomatic in the asking for MRI of the brain at the time neurology consultation patient be kept in the hospital for another day for further workup till her symptoms are clear, blood pressure is better and at least we have some workup on her severe dizziness not controlled at this point which pretty much can be either vestibulopathy can be reaction to the blood pressure being high causing her to have quite a bit of problem with her equilibrium. 12/28. Patient seen and examined. Patient blood pressure has improved. Dizziness has resolved. Denies any lightheadedness. 12/29. Patient seen and examined. MRI brain was negative for any acute intracranial process. Blood pressure was normotensive, patient stated after getting hydralazine she felt lethargic and dizzy, hydralazine discontinued by cardiology. REVIEW OF SYSTEMS: CONSTITUTIONAL: No fever, no malaise,. CARDIOVASCULAR: No chest pain, no palpitations, no syncope. PULMONARY: No shortness of breath, no cough, GASTROINTESTINAL: No diarrhea, no nausea, no vomiting, no abdominal pain. NEUROLOGICAL: No headaches, no weakness, PHYSICAL EXAMINATION: GENERAL: The patient is alert and oriented x3, not in any acute distress. Well developed, well nourished. HEENT: Pupils are round and equally reacting to light. EOMI. No scleral icterus. No conjunctival pallor. Normocephalic, atraumatic. No pharyngeal erythema. No thyromegaly. CARDIOVASCULAR: S1 and S2 present. No murmurs, rubs, or gallops. PULMONARY: Chest is clear to auscultation, no wheezing or crackles. ABDOMEN: Soft, nontender, nondistended, normoactive bowel sounds. No palpable organomegaly. MUSCULOSKELETAL: No joint swelling or deformity. EXTREMITIES: No cyanosis, clubbing, or pedal edema. NEUROLOGICAL: Gross neurological examination did not reveal any focal deficits. SKIN: No rashes. Assessment and plan _Chest pain and angina: Negative troponin with echocardiogram showed ejection fraction to be in the marginal low normal patient symptoms probably need to be dealt with more caution by probably at least running stress test as an outpatient and watching her carefully when she ambulate to make sure she does not become more symptomatic. _Severe urgent hypertension: Continue losartan, and Lopressor, hydralazine discontinued _Severe dizziness: MRI brain negative for any acute intracranial process Neurology following _Atherosclerotic heart disease post angioplasty and stent placement of the LAD back in June 10, 2021: Continue metoprolol, losartan, atorvastatin, Zetia. _Severe anxiety and panic: Continue e alprazolam on as-needed basis to control her symptoms. _Severe nausea and vomiting with intractable symptoms Continue antiemetics _Hyperlipidemia: Continue ZETIA along with atorvastatin 20 mg a day. _Hypothyroidism: Resume levothyroxine 112 mcg in the a.m. and half tablet at bedtime every other day. _Severe GERD: Has been on omeprazole 20 mg daily. _Abnormal liver function test: Not clear whether this is side effect of medication or FABIAN might do liver ultrasound repeat liver function test and probably hepatitis panel be done. _GI prophylaxis: Patient will be on omeprazole 20 mg a day. _DVT prophylaxis: Knee-high ASHLEY hose and early mobilization. Labs and medication were reviewed.. Continue same treatment. Continue with symptomatic treatment. Resume home medication. Monitor labs and vitals. DVT and GI prophylaxis. Further recommendations as per clinical course of the patient Dictation was produced using [employer] dictation software. please excuse any grammatical, word or spelling errors. Objective - Vital Signs Vital signs: Vital Signs Temp 97.9 F 12/29/23 08:05 Pulse 69 12/30/23 09:20 Resp 16 12/30/23 09:20 BP 108/64 12/30/23 09:20 Pulse Ox 96 12/30/23 09:20 FiO2 Intake & Output 12/29/23 12/30/23 12/30/23 18:59 06:59 18:59 Intake Total 894 10 220 Balance 894 10 220 Intake: IV 10 Invasive Line 2 10 Oral 894 220 Other: Voiding Method Toilet # Voids 1 - Labs CBC & Chem 7: 12/27/23 01:36 12/30/23 05:56 Labs: Abnormal Lab Results - Last 24 Hours (Table) 12/29/23 12/30/23 Range/Units 10:22 05:56 Sodium 125 L 125 L (137-145) mmol/L Chloride 94 L 95 L (98-107) mmol/L Carbon Dioxide 20 L 21 L (22-30) mmol/L BUN 25 H 31 H (7-17) mg/dL
[2023-12-31] MEDS: NITROGLYCERIN SL TABS 0.4 MG TAB SUBLINGUAL PRN (00:24)
--- NOTE | 2023-12-31 01:16 | P.PN ---
Subjective Progress Note Date: 12/30/23 Patient was seen for a follow-up. Patient is sitting comfortably in the recliner. She has been walking fairly normally. Patient states that last night at 11 PM she received her dose of hydralazine. 15 minutes after she developed significant dizziness. She believes dizziness is all related to side effect of medication. Also complaining of some left-sided neck pain, and chest pain. Cardiology is aware of the symptoms. Telemetry monitoring showing sinus rhythm between 50s to 110, some PVCs and PACs and couplets. No other arrhythmia. Objective - Vital Signs Vital signs: Vital Signs Temp 97.9 F 12/29/23 08:05 Pulse 70 12/30/23 11:39 Resp 16 12/30/23 11:39 BP 127/74 12/30/23 11:39 Pulse Ox 97 12/30/23 11:39 FiO2 Intake & Output 12/29/23 12/30/23 12/30/23 18:59 06:59 18:59 Intake Total 894 10 338 Balance 894 10 338 Intake: IV 10 Invasive Line 2 10 Oral 894 338 Other: Voiding Method Toilet # Voids 1 - Exam Normal. Nonfocal. - Labs CBC & Chem 7: 12/27/23 01:36 12/30/23 05:56 Labs: Abnormal Lab Results - Last 24 Hours (Table) 12/30/23 Range/Units 05:56 Sodium 125 L (137-145) mmol/L Chloride 95 L (98-107) mmol/L Carbon Dioxide 21 L (22-30) mmol/L BUN 31 H (7-17) mg/dL Assessment and Plan Assessment: * Acute onset of dizziness with nausea, vomiting, occurred after patient received blood pressure medication for uncontrolled blood pressure in the hospital. Uncertain if dizziness from lowering blood pressure, rule out cerebellar stroke/TIA. Current examination is nonfocal. * Acute onset of chest pain, sweating, difficulty breathing, rule out cardiac cause (presenting symptoms). * Accelerated hypertension * Hyperlipidemia, borderline, LDL 99. * Hyponatremia Plan: * Patient was on aspirin 80 mg daily. Apparently Plavix has been discontinued, as dizziness is likely related to blood pressure dysregulation rather than any ischemic process. * MRI of the brain with and without contrast revealed no acute intracranial process. I personally reviewed MRI agree with the findings. * 2D echo revealed low normal LV systolic function with EF at 50%. Mild to moderate MR with posterior directed jet. Mild pulmonary hypertension. Modera tely increased left atrial volume. * Optimize control of blood pressure to normotensive level. Avoid hypotension. * Lipid panel with cholesterol 179, LDL 99, HDL 57 and triglycerides 112. Continue Lipitor 40 mg daily. * Neurologically clear for discharge. We will sign off. Dr. Sathya Crandall starting neurology service in the morning for any neurological concerns.
[2023-12-31 07:02] LABS: Basophils # (A) 0.1 k/uL (0-0.2); Basophils % (A) 1 %; Eosinophils # (A) 0.2 k/uL (0-0.7); Eosinophils % (A) 3 %; HCT 39.4 % (34.0-46.0); HGB 13.3 gm/dL (11.4-16.0); Lymphocytes # (A) 1.2 k/uL (1.0-4.8); Lymphocytes % (A) 16 %; MCH 29.1 pg (25.0-35.0); MCHC 33.7 g/dL (31.0-37.0); MCV 86.2 fL (80.0-100.0); Mean Platelet Volume 7.6; Monocytes # (A) 0.4 k/uL (0-1.0); Monocytes % (A) 5 %; Neutrophils # (A) 5.5 k/uL (1.3-7.7); Neutrophils % (A) 74 %; Platelet Count 363 k/uL (150-450); RBC 4.57 m/uL (3.80-5.40); RDW 13.7 % (11.5-15.5); WBC 7.4 k/uL (3.8-10.6)
[2023-12-31 07:19] LABS: ALT 30 U/L (4-34); AST 23 U/L (14-36); African American GFR (CKD) 82 (>60 ml/min/1.73 sqM); Albumin 3.8 g/dL (3.5-5.0); Alkaline Phosphatase 137 U/L (38-126); Anion Gap 6 mmol/L; Blood Urea Nitrogen 27 mg/dL (7-17); Calcium 9.5 mg/dL (8.4-10.2); Carbon Dioxide 24 mmol/L (22-30); Chloride 98 mmol/L (98-107); Glucose 95 mg/dL (74-99); Non-African American GFR(CKD) 71 (>60 ml/min/1.73 sqM); Potassium 4.6 mmol/L (3.5-5.1); Sodium 128 mmol/L (137-145); Total Bilirubin 0.5 mg/dL (0.2-1.3); Total Protein 6.5 g/dL (6.3-8.2)
--- NOTE | 2023-12-31 07:56 | P.PN ---
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 She call 911 presented to the emergency department with anginal symptoms,Mid sternal burning lasted until made it to the ER and Improved with NTG, was seen and evaluated. Her history her EKG did not show any significant ST elevation, laboratory evaluation shows normal CBC, chemistry, mildly elevated alkaline phosphatase and ALT with negative troponin no BNP was done. Chest x-ray shows no major abnormality. With patient history of angioplasty and stent along with current presentation patient will be admitted to the hospital, CK troponin x 3 be done, will keep patient n.p.o. until she sees cardiology to decide on the best action plan she might have repeat echocardiogram to develop any worsening symptoms she needed further Lab if there is any abnormality heart catheter would be advisable otherwise depend on her last stress test will decide on further management. 12/28/2023: Patient is not feeling good despite full workup for her angina came back negative and was cleared by cardiology for no further workup continue to struggle not feeling well at all her blood pressure continued to be extremely high And has been complaining of more lightheadedness and dizziness and severe disequilibrium. Try to switch her losartan to valsartan initially she claims she had severe reaction to it could not stand up and walk switch the medication back to losartan continue to have quite good high blood pressure medication were switched around again by adding hydralazine up to 50 mg twice a day amlodipine 5 mg and keep using hydralazine on demand for systolic blood pressure above 150 by then the patient become extremely dizzy lightheaded and started having more symptoms. Her further workup for abnormal liver function test came back with normal liver ultrasound. Echocardiogram still showing ejection fraction of 50 percentile and low and low normal with no wall motion abnormality at this point but I believe admit patient had she had more component of angina will require further workup at least stress test as an outpatient with Dr. Navarro will be arranged. I could not have patient sit on the side of the bed stand up because become more symptomatic in the asking for MRI of the brain at the time neurology consultation patient be kept in the hospital for another day for further workup till her symptoms are clear, blood pressure is better and at least we have some workup on her severe dizziness not controlled at this point which pretty much can be either vestibulopathy can be reaction to the blood pressure being high causing her to have quite a bit of problem with her equilibrium. 12/31/2023: She is not having any further symptoms Chest tightness or pressure she is not out of breath continue having hypertensive crisis on and off Medication finally changed to reduce her losartan to 50 mg twice a day, Lopressor to 50 mg at bedtime only, she is off hydralazine with decline was having side effects from it and blood pressure seems to be better controlled so far with systolic blood pressure is not going higher than 120 this morning. Was evaluated by cardiology again and felt no need to do any stress test or heart cath at this point patient will be evaluated again as an outpatient for stress test if continue to have any recurrent chest pain heart catheter will be done as a neck step. Patient be ready to be discharged home today. REVIEW OF SYSTEMS: CONSTITUTIONAL: Overweight no acute respiratory distress. EYES: No icterus sclerae, no conjunctivitis. [place]ubl[place] EARS, NOSE, MOUTH, THROAT, and FACE: No sore throat, lymphadenopathy, carotid bruits or deformity. RESPIRATORY: Positive shortness of breath no cough or wheezes. CARDIOVASCULAR: Positive chest pain and PND with orthopnea and angina. GASTROINTESTINAL: No Abd pain, Nausea or vomiting, no Diarrhea or constipation, No GI Bleed, no distention or masses. GENITOURINARY: Negative for Hematuria or UTI, no kidney stones. INTEGUMENT/BREAST: Negative for any muscular injury with mild osteoarthritis.. HEMATOLOGIC/LYMPHATIC: Negative for bleed or purpura. MUSCULOSKELTAL: Negative for Myalgia or arthralgia. NEURLOGICAL: No LOC, Sz or syncope, blurred vision dizziness or abnormality.. BEHAVIORAL/PSYCH: Negative. ENDOCRINE: Negative. PHYSICAL EXAMINATION: General Appearance: Alert, cooperative, no distress, appears stated age. Neck HEENT: Supple, no lymphadenopathy, no thyroid enlargement, no carotid bruit s. Lungs: Clear to auscultation without crackles or wheezes no rhonchi, no deformity. Chest Wall: Chest wall normal expansion with deep inspiration no tenderness and no deformity was found on exam, no costochondral pain or discomfort. Heart: Regular rate and rhythm, S1, S2 normal, no murmur, rub or gallop. Back: Symmetric, no curvature, ROM normal, no CVA tenderness. Abdomen: Soft, non-tender, bowel sounds active all four quadrants, no masses, no organomegaly. Extremities: Extremities normal, atraumatic, no cyanosis or edema. Pulses: 2+ and symmetric. Skin: Skin color, texture, tugor normal, no rashes or lesions. Neurologic: Alert oriented x3 cranial nerves II through XII intact, no motor de ficit, no abnormal balance or gait. ASSESSMENT AND PLAN: _Chest pain and angina: Negative testing and has done well no further chest pain since continue having slight urgent blood pressure require keeping in the hospital for the last 2 extra days. _Severe urgent hypertension: Did not do well with many medication including reaction to valsartan, reaction to amlodipine reaction to hydralazine. Patient is down to losartan 50 mg twice a day and metoprolol tartrate 50 mg at bedtime which blood pressure seems to be well-controlled with it currently with no side effect. Less in the region for blood pressure medication and to watch her symptoms carefully as an outpatient. _Severe dizziness: A complete workup including MRI of the brain with carotid ultrasound and neuroconsultation came back to be negative from the major finding so this episode could be reaction to the blood pressure being off created more vestibulopathy or inner ear problem. _Atherosclerotic heart disease post angioplasty and stent placement of the LAD back in June 10, 2021: Patient has been On secondary prevention with medication has been on metoprolol, losartan, atorvastatin, Plavix and Zetia. _Severe anxiety and panic: Remain on alprazolam which did help quite a bit. _Severe nausea and vomiting with intractable symptoms resolved finally still on Zofran and pantoprazole patient is doing well. _Hyperlipidemia: Still on Zetia 10 milligram a day along with atorvastatin 20 mg a day. _Hypothyroidism: Resume levothyroxine 112 mcg in the a.m. and half tablet at bedtime every other day. _Severe GERD: Has been on omeprazole 20 mg daily. _Abnormal liver function test: Not clear whether this is side effect of medication or FABIAN might do liver ultrasound repeat liver function test and probably hepatitis panel be done. Prognosis: Good. Discharge planning: Patient was kept in the hospital on the weekend was not stable Having symptoms with very urgent hypertension which finally become controlled also she had intractable nausea and vomiting along with severe vestibulopathy and dizziness with a consultation for neurology MRI of the brain and further workup all came back to be negative blood pressure finally is much better on less medication. Patient will be stable to be discharged home today hopefully on 12/31/2023. Objective - Vital Signs Vital signs: Vital Signs Temp 97.8 F 12/30/23 21:08 Pulse 64 12/31/23 04:50 Resp 18 12/31/23 04:50 BP 116/74 12/31/23 04:50 Pulse Ox 95 12/31/23 04:50 FiO2 Intake & Output 12/30/23 12/30/23 12/31/23 06:59 18:59 06:59 Intake Total 10 456 Balance 10 456 Intake: IV 10 Invasive Line 2 10 Oral 456 Other: Voiding Method Toilet Toilet # Voids 1 2 - Labs CBC & Chem 7: 12/31/23 06:20 12/31/23 06:20 Labs: Abnormal Lab Results - Last 24 Hours (Table) 12/30/23 Range/Units 05:56 Sodium 125 L (137-145) mmol/L Chloride 95 L (98-107) mmol/L Carbon Dioxide 21 L (22-30) mmol/L BUN 31 H (7-17) mg/dL
[2023-12-31 12:06] VITALS: BP 120/75; PULSE 67; RESP 18; TEMP 97.6
--- NOTE | 2023-12-31 15:56 | P.PN ---
Subjective HISTORY OF PRESENT ILLNESS: This is a 73-year-old female with a past medical history significant for coronary artery disease, hypertension, hyperlipidemia, and hypothyroidism. Patient follows in the office with Dr. Navarro. We have been asked to see the patient in consultation for chest pain. Patient examined at the bedside in the emergency room. Patient states that she woke up from a sleep last night with heaviness in her chest. She also experienced difficulty in breathing. This is her first episode that she has had. She also had shaking and sweating. She denies having any lightheadedness, dizziness, syncope. She states that her bl ood pressures have been running high and had recently followed up with Edilia DAVALOS at Dr. Kennedy's office. She states her blood pressure has been running 170/90. She states she has been taking all of her medications as directed and following a no added salt diet. She denies any abdominal pain. It is noted that the patient's blood pressures have been elevated since coming to the hospital with a systolic ranging between [id number]. DIAGNOSTICS: - EKG reveals sinus mechanism with no signs of acute ischemia. - Chest xray negative for acute process - Laboratory data: WBC 9.8. Hemoglobin 13.6. Hemoglobin 13.6. Sodium 132. Potassium 4.9. BUN 27. Creatinine 0.77. Magnesium 2.0. AST 39. ALT 28. Alkaline phosphatase 171. Troponin negative x 2. - Current home cardiac medications include losartan 50 mg twice a day, metoprolol tartrate 50 mg at night, aspirin 81 mg daily, Zetia 10 mg daily - Most recent echocardiogram obtained in May 2023 revealing normal EF, mild TR, mild to moderate MR - Cardiac catheterization history: May 2021 with stenting to the proximal LAD x 2 12/28/2023 Patient examined this morning at the bedside. Patient denies having any chest pain or pressure this morning. She denies any shortness of breath. She does report having a headache and feels dizzy this morning. Patient's blood pressures continue to remain uncontrolled. Echocardiogram completed revealing ejection fraction 50%, mild to moderate mitral regurgitation, and mild pulm hypertension 12/29/2023 Patient examined this morning at the bedside. Per nursing, patient's systolic blood pressure this morning was in the 90s. The patient reports feeling lightheaded this morning although it is improved. She denies chest pain or pressure. Telemetry reveals sinus mechanism. 12/30/2023 Patient examined this morning. She is sitting up in the chair. Patient currently denies chest pain or pressure. She denies shortness of breath. Patient states yesterday after receiving her hydralazine she began to feel unwell and thinks that her adverse side effects are due to the hydralazine. Blood pressure this morning 108/64. 5/6 Seen and examined. Patient had an episode of 3 seconds of chest pressure however this resolved spontaneously. EKG not showing any significant changes. Blood pressures been well controlled. PHYSICAL EXAM: VITAL SIGNS: Reviewed. GENERAL: Well-developed in no acute distress. NECK: Supple. No JVD or thyromegaly LUNGS: Respirations even and unlabored. Lungs essentially clear to auscultation bilaterally. HEART: Regular rate and rhythm. S1 and S2 heard. Systolic murmur noted. EXTREMITIES: Normal range of motion. No clubbing or cyanosis. Peripheral pulses intact. No lower extremity edema ASSESSMENT: Hypertensive crisis Chest pain, troponin negative x 2, chest pain most likely due to hypertensive crisis rule out severe coronary artery disease Coronary artery disease with previous stenting of the LAD, May 2021 Hypertension Hyperlipidemia Hypothyroidism Minimally elevated AST History of GERD Dizziness, suspect secondary to hypotension, resolved Hypotension, resolved PLAN: multiple adjustments of blood pressure regimen. Overall patient is doing well. She is having atypical chest pain. Stable for discharge home with outpatient follow-up. Objective - Vital Signs Vital signs: Vital Signs Temp 97.6 F 12/31/23 11:20 Pulse 67 12/31/23 11:20 Resp 18 12/31/23 11:20 BP 120/75 12/31/23 11:20 Pulse Ox 96 12/31/23 11:20 FiO2 Intake & Output 12/30/23 12/31/23 12/31/23 18:59 06:59 18:59 Intake Total 456 720 Balance 456 720 Intake: Oral 456 720 Other: Voiding Method Toilet Toilet # Voids 2 2 - Labs CBC & Chem 7: 12/31/23 06:20 12/31/23 06:20 Labs: Abnormal Lab Results - Last 24 Hours (Table) 12/31/23 Range/Units 06:20 Sodium 128 L (137-145) mmol/L BUN 27 H (7-17) mg/dL Alkaline Phosphatase 137 H (38-126) U/L
--- NOTE | 2024-01-01 05:35 | P.DS ---
Providers Date of admission: 12/27/23 04:57 Attending physician: Ricky Kennedy Consults: 12/27/23 04:57 Consult Physician Routine Consulting Provider: Solomon Cronin Consult Reason/Comments: chest pain Do you want consulting provider notified?: Yes 12/28/23 17:25 Consult Physician Routine Consulting Provider: Екатерина Velez Consult Reason/Comments: severe dizziness Do you want consulting provider notified?: Yes, Notify in am Primary care physician: 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 She call 911 presented to the emergency department with anginal symptoms,Mid sternal burning lasted until made it to the ER and Improved with NTG, was seen and evaluated. Her history her EKG did not show any significant ST elevation, laboratory evaluation shows normal CBC, chemistry, mildly elevated alkaline phosphatase and ALT with negative troponin no BNP was done. Chest x-ray shows no major abnormality. With patient history of angioplasty and stent along with current presentation patient will be admitted to the hospital, CK troponin x 3 be done, will keep patient n.p.o. until she sees cardiology to decide on the best action plan she might have repeat echocardiogram to develop any worsening symptoms she needed further Lab if there is any abnormality heart catheter would be advisable otherwise depend on her last stress test will decide on further management. 12/28/2023: Patient is not feeling good despite full workup for her angina came back negative and was cleared by cardiology for no further workup continue to struggle not feeling well at all her blood pressure continued to be extremely high And has been complaining of more lightheadedness and dizziness and severe disequilibrium. Try to switch her losartan to valsartan initially she claims she had severe reaction to it could not stand up and walk switch the medication back to losartan continue to have quite good high blood pressure medication were switched around again by adding hydralazine up to 50 mg twice a day amlodipine 5 mg and keep using hydralazine on demand for systolic blood pressure above 150 by then the patient become extremely dizzy lightheaded and started having more symptoms. Her further workup for abnormal liver function test came back with normal liver ultrasound. Echocardiogram still showing ejection fraction of 50 percentile and low and low normal with no wall motion abnormality at this point but I believe admit patient had she had more component of angina will require further workup at least stress test as an outpatient with Dr. Navarro will be arranged. I could not have patient sit on the side of the bed stand up because become more symptomatic in the asking for MRI of the brain at the time neurology consultation patient be kept in the hospital for another day for further workup till her symptoms are clear, blood pressure is better and at least we have some workup on her severe dizziness not controlled at this point which pretty much can be either vestibulopathy can be reaction to the blood pressure being high causing her to have quite a bit of problem with her equilibrium. 12/31/2023: She is not having any further symptoms Chest tightness or pressure she is not out of breath continue having hypertensive crisis on and off Medication finally changed to reduce her losartan to 50 mg twice a day, Lopressor to 50 mg at bedtime only, she is off hydralazine with decline was having side effects from it and blood pressure seems to be better controlled so far with systolic blood pressure is not going higher than 120 this morning. Was evaluated by cardiology again and felt no need to do any stress test or heart cath at this point patient will be evaluated again as an outpatient for stress test if continue to have any recurrent chest pain heart catheter will be done as a neck step. Patient be ready to be discharged home today. REVIEW OF SYSTEMS: CONSTITUTIONAL: Overweight no acute respiratory distress. EYES: No icterus sclerae, no conjunctivitis. Sublungual EARS, NOSE, MOUTH, THROAT, and FACE: No sore throat, lymphadenopathy, carotid bruits or deformity. RESPIRATORY: Positive shortness of breath no cough or wheezes. CARDIOVASCULAR: Positive chest pain and PND with orthopnea and angina. GASTROINTESTINAL: No Abd pain, Nausea or vomiting, no Diarrhea or constipation, No GI Bleed, no distention or masses. GENITOURINARY: Negative for Hematuria or UTI, no kidney stones. INTEGUMENT/BREAST: Negative for any muscular injury with mild osteoarthritis.. HEMATOLOGIC/LYMPHATIC: Negative for bleed or purpura. MUSCULOSKELTAL: Negative for Myalgia or arthralgia. NEURLOGICAL: No LOC, Sz or syncope, blurred vision dizziness or abnormality.. BEHAVIORAL/PSYCH: Negative. ENDOCRINE: Negative. PHYSICAL EXAMINATION: General Appearance: Alert, cooperative, no distress, appears stated age. Neck HEENT: Supple, no lymphadenopathy, no thyroid enlargement, no carotid bruits. Lungs: Clear to auscultation without crackles or wheezes no rhonchi, no deformity. Chest Wall: Chest wall normal expansion with deep inspiration no tenderness and no deformity was found on exam, no costochondral pain or discomfort. Heart: Regular rate and rhythm, S1, S2 normal, no murmur, rub or gallop. Back: Symmetric, no curvature, ROM normal, no CVA tenderness. Abdomen: Soft, non-tender, bowel sounds active all four quadrants, no masses, no organomegaly. Extremities: Extremities normal, atraumatic, no cyanosis or edema. Pulses: 2+ and symmetric. Skin: Skin color, texture, tugor normal, no rashes or lesions. Neurologic: Alert oriented x3 cranial nerves II through XII intact, no motor deficit, no abnormal balance or gait. ASSESSMENT AND PLAN: _Chest pain and angina: Negative testing and has done well no further chest pain since continue having slight urgent blood pressure require keeping in the hospital for the last 2 extra days. _Severe urgent hypertension: Did not do well with many medication including reaction to valsartan, reaction to amlodipine reaction to hydralazine. Patient is down to losartan 50 mg twice a day and metoprolol tartrate 50 mg at bedtime which blood pressure seems to be well-controlled with it currently with no side effect. Less in the region for blood pressure medication and to watch her symptoms carefully as an outpatient. _Severe dizziness: A complete workup including MRI of the brain with carotid ultrasound and neuroconsultation came back to be negative from the major finding so this episode could be reaction to the blood pressure being off created more vestibulopathy or inner ear problem. _Atherosclerotic heart disease post angioplasty and stent placement of the LAD back in June 10, 2021: Patient has been On secondary prevention with medication has been on metoprolol, losartan, atorvastatin, Plavix and Zetia. _Severe anxiety and panic: Remain on alprazolam which did help quite a bit. _Severe nausea and vomiting with intractable symptoms resolved finally still on Zofran and pantoprazole patient is doing well. _Hyperlipidemia: Still on Zetia 10 milligram a day along with atorvastatin 20 mg a day. _Hypothyroidism: Resume levothyroxine 112 mcg in the a.m. and half tablet at bedtime every other day. _Severe GERD: Has been on omeprazole 20 mg daily. _Abnormal liver function test: Not clear whether this is side effect of medication or FABIAN might do liver ultrasound repeat liver function test and probably hepatitis panel be done. Prognosis: Good. Discharge planning: Patient was kept in the hospital on the weekend was not stable Having symptoms with very urgent hypertension which finally become controlled also she had intractable nausea and vomiting along with severe vestibulopathy and dizziness with a consultation for neurology MRI of the brain and further workup all came back to be negative blood pressure finally is much better on less medication. Patient will be stable to be discharged home today hopefully on 12/31/2023. Hospital course: Patient was hospitalized originally with acute chest pain and angina CK troponin came back slightly bit off but negative was evaluated by cardiology felt no need to do any cardiac testing at this point patient be seen cardiology as an outpatient to do stress test. Her echocardiogram showed ejection fraction in the low 50 otherwise no wall motion abnormality. Patient developed to have severe urgent hypertension with a change medication she had extremely bad course with reaction to medication with a blood pressure Being urgently high despite titration of medication from switching her from losartan to valsartan reacted severely to it also increase amlodipine did not do well and having to use hydralazine on as-needed basis patient reactive as well. Backing off her medication to losartan 50 mg twice a day metoprolol tartrate 50 mg at bedtime only seems to control her blood pressure well with no further symptoms her intractable nausea and vomiting had resolved and vestibular complain with dizziness has improved significantly. Cardiology felt no need to run any heart catheter at this point but stress test can be arranged as an outpatient and patient eventually having any recurrent symptoms might require further cardiac testing. Patient was ready to be discharged home on 12/31/2023. Time spent on patient discharge was 37 minutes. Plan - Discharge Summary New Discharge Prescriptions: New Nitroglycerin Sl Tabs [Nitrostat] 0.4 mg SUBLINGUAL Q5M PRN #25 tab PRN Reason: Chest Pain Clopidogrel [Plavix] 75 mg PO DAILY #30 tab Losartan [Cozaar] 50 mg PO BID #60 tab ALPRAZolam [Xanax] 0.25 mg PO TID PRN #0 tab PRN Reason: Anxiety Atorvastatin [Lipitor] 20 mg PO HS #30 tab Ondansetron [Zofran] 4 mg PO Q8HR PRN #20 tab PRN Reason: Nausea/Anxiety Continue Acetaminophen Tab [Tylenol] 1,000 mg PO BID@1399,1929 Metoprolol Tartrate [Lopressor] 50 mg PO HS Levothyroxine Sodium [Synthroid] 112 mcg PO MOWEFR@0630 Multivit-Min/FA/Lycopen/Lutein [Centrum Silver Tablet] 1 tab PO DAILY Levothyroxine Sodium [Synthroid] 56 mcg PO SUTUTHSA@629 Sodium Chloride 5% Ophth Soln [Sony 128] 1 drops BOTH EYES HS Carboxymethylcellulos/Glycerin [Refresh Relieva 0.5-0.9% Drop] 2 drop BOTH EYES DAILY@1300 Propylene Glycol/Peg 400 [Systane Ultra 0.4-0.3% Eye Drp] 2 drop BOTH EYES BID@08,1929 Cetirizine HCl [Zyrtec] 10 mg PO HS Aspirin EC [Ecotrin Low Dose] 81 mg PO DAILY@1899 Omeprazole 20 mg PO DAILY Systane Nightime Lubricant 1 drop BOTH EYES HS Ibuprofen [Advil] 400 mg PO HS Ezetimibe [Zetia] 10 mg PO DAILY@1899 Discontinued Losartan [Cozaar] 50 mg PO BID Discharge Medication List Acetaminophen Tab [Tylenol] 1,000 mg PO BID@1400,1930 09/29/15 [History] Levothyroxine Sodium [Synthroid] 112 mcg PO MOWEFR@30 09/29/15 [History] Metoprolol Tartrate [Lopressor] 50 mg PO HS 09/29/15 [History] Multivit-Min/FA/Lycopen/Lutein [Centrum Silver Tablet] 1 tab PO DAILY 09/29/15 [History] Levothyroxine Sodium [Synthroid] 56 mcg PO SUTUTHSA@0630 01/10/17 [History] Omeprazole 20 mg PO DAILY 03/15/21 [History] Aspirin EC [Ecotrin Low Dose] 81 mg PO DAILY@1900 12/27/23 [History] Carboxymethylcellulos/Glycerin [Refresh Relieva 0.5-0.9% Drop] 2 drop BOTH EYES DAILY@1300 12/27/23 [History] Cetirizine HCl [Zyrtec] 10 mg PO HS 12/27/23 [History] Ezetimibe [Zetia] 10 mg PO DAILY@1900 12/27/23 [History] Ibuprofen [Advil] 400 mg PO HS 12/27/23 [History] Propylene Glycol/Peg 400 [Systane Ultra 0.4-0.3% Eye Drp] 2 drop BOTH EYES BID@0830,1930 12/27/23 [History] Sodium Chloride 5% Ophth Soln [Sony 128] 1 drops BOTH EYES HS 12/27/23 [History] Systane Nightime Lubricant 1 drop BOTH EYES HS 12/27/23 [History] Atorvastatin [Lipitor] 20 mg PO HS #30 tab 12/28/23 [Rx] Clopidogrel [Plavix] 75 mg PO DAILY #30 tab 12/28/23 [Rx] Nitroglycerin Sl Tabs [Nitrostat] 0.4 mg SUBLINGUAL Q5M PRN #25 tab 12/28/23 [Rx] ALPRAZolam [Xanax] 0.25 mg PO TID PRN #0 tab 12/31/23 [Rx] Losartan [Cozaar] 50 mg PO BID #60 tab 12/31/23 [Rx] Ondansetron [Zofran] 4 mg PO Q8HR PRN #20 tab 12/31/23 [Rx] Follow up Appointment(s)/Referral(s): Markie Navarro MD [STAFF PHYSICIAN] - 01/22/24 2:15 pm Ricky Kennedy MD [Primary Care Provider] - 1-2 days (please call tomorrow to make your appoiment) Patient Instructions/Handouts: Chest Pain (DC), Chronic Hypertension (ED) Discharge Disposition: HOME SELF-CARE
== END 2023-12-31 16:49 | disposition home or self-care (01) | DRG 305 ==
LOC: EC 01:08 → 6NMEDSUR 04:57 → 3SCARD 08:12 → OBSVTOIN 12-31 08:34
PROVIDERS: ADMIT Internal Medicine Geriatric Medicine; ATTEND Internal Medicine Geriatric Medicine
DX: I16.9 Hypertensive crisis, unspecified (principal); E87.1 Hypo-osmolality and hyponatremia; I27.20 Pulmonary hypertension, unspecified; I95.9 Hypotension, unspecified; I25.119 Atherosclerotic heart disease of native coronary artery with unspecified angina pectoris; I34.0 Nonrheumatic mitral (valve) insufficiency; E03.9 Hypothyroidism, unspecified; I10 Essential (primary) hypertension; Z28.310 Unvaccinated for COVID-19; T46.5X5A Adverse effect of other antihypertensive drugs, initial encounter; T46.1X5A Adverse effect of calcium-channel blockers, initial encounter; E78.5 Hyperlipidemia, unspecified; K21.9 Gastro-esophageal reflux disease without esophagitis; F41.9 Anxiety disorder, unspecified; I49.3 Ventricular premature depolarization; I83.90 Asymptomatic varicose veins of unspecified lower extremity; K44.9 Diaphragmatic hernia without obstruction or gangrene; R16.0 Hepatomegaly, not elsewhere classified; R74.01 Elevation of levels of liver transaminase levels; M19.90 Unspecified osteoarthritis, unspecified site; M54.12 Radiculopathy, cervical region; M54.2 Cervicalgia; H55.00 Unspecified nystagmus; R42 Dizziness and giddiness; R11.2 Nausea with vomiting, unspecified; Z79.82 Long term (current) use of aspirin; Z79.890 Hormone replacement therapy; Z79.899 Other long term (current) drug therapy; Z86.16 Personal history of COVID-19; Z96.652 Presence of left artificial knee joint; Z95.5 Presence of coronary angioplasty implant and graft; Z88.0 Allergy status to penicillin; Z88.2 Allergy status to sulfonamides
CPT/HCPCS: 36415; 70553; 71046; 76705; 80048; 80053; 80061; 83735; 84484; 85025; 85610; 85730; 93005; 93306; 93970; 96365; 96366; 99285

== ENCOUNTER → 2024-02-05 | Outpatient (CLI) | payer MEDICARE, BC ==
[2024-02-05 14:55] LABS: HCT 43.1 % (37.2-46.3); HGB 13.7 g/dL (12.0-15.0); MCHC 31.8 g/dL (32.0-37.0); MCV 88.1 FL (80.0-97.0); Mean Platelet Volume 10.1 FL (9.5-12.2); NRBC Per 100 WBC 0 X 10*3/uL (0.00-0.01); Platelet Count 405 X 10*3/uL (140-440); RBC 4.89 X 10*6/uL (4.10-5.20); RDW 14.6 % (11.5-14.5); WBC 6.28 X 10*3/uL (4.50-10.00)
[2024-02-05 14:56] LABS: Carbon Dioxide 20.6 mmol/L (21.6-31.8); Chloride 100 mmol/L (96-109); Potassium 4.9 mmol/L (3.5-5.5); Sodium 135 mmol/L (135-145)
== END | disposition home or self-care (01) ==
LOC: LABPAT 09:57
PROVIDERS: ATTEND Internal Medicine Interventional Cardiology
DX: Z01.812 Encounter for preprocedural laboratory examination (principal); R94.39 Abnormal result of other cardiovascular function study
CPT/HCPCS: 80051; 82565; 84520; 85027

== ENCOUNTER 2024-02-14 07:37 | Day surgery (SDC) | payer MEDICARE, BC ==
[~2024-02-14 07:37] MED LIST changes: +ALPRAZolam 0.25 MG TAB PO PRN; +HEPARIN SODIUM,PORCINE (1 ML) 2,500 UNIT in SODIUM CHLORIDE 0.9% 250 ML IRRIGATION PRN; +HEPARIN SODIUM,PORCINE 10,000 UNIT in SODIUM CHLORIDE 0.9% 1,000 ML IRRIGATION PRN; -LACTATED RINGERS 1,000 ML IV SCH; +NITROGLYCERIN SL TABS 0.4 MG TAB SUBLINGUAL PRN
[2024-02-14] MEDS: SODIUM CHLORIDE 0.9% 1,000 ML IV ONE (08:01)
[2024-02-14] MEDS: ATORVASTATIN 80 MG TAB PO STA (08:10)
[2024-02-14] MEDS: ASPIRIN 325 MG TAB PO ONE (08:10)
[2024-02-14] MEDS: SODIUM CHLORIDE 0.9% 1,000 ML in EMPTY BAG 1 BAG IV SCH (08:11)
[2024-02-14 08:14] VITALS: TEMP 97.6
[2024-02-14] MEDS: ALPRAZolam 0.5 MG TAB PO PRN (08:17)
[2024-02-14] MEDS ORDERED: LIDOCAINE 1% INJ 10MG/ML (20 ML MDV) ONE (08:54)
[2024-02-14] MEDS ORDERED: VERAPAMIL 2.5 MG/ML 2 ML AMP ONE (08:54)
[2024-02-14] MEDS ORDERED: HEPARIN SODIUM 1,000 UN/ML (10ML VL) ONE ×2 (09:15→10:25)
[2024-02-14] MEDS ORDERED: fentaNYL (PF) 50 MCG/ML 2 ML AMP ONE (09:15)
[2024-02-14] MEDS: fentaNYL (PF) 50 MCG/1 ML VIAL IVP ONE (09:35)
[2024-02-14] MEDS: LIDOCAINE 1% INJ 10MG/ML (20 ML MDV) SQ ONE (09:40)
[2024-02-14] MEDS: VERAPAMIL SYRINGE (5 MG/10 ML) INTRAARTER ONE (09:46)
[2024-02-14] MEDS: HEPARIN SODIUM 1,000 UN/ML (10ML VL) IVP ONE (09:51)
[2024-02-14] MEDS ORDERED: CLOPIDOGREL 75 MG TAB ONE (09:59)
[2024-02-14] MEDS: CLOPIDOGREL 75 MG TAB PO ONE (10:02)
[2024-02-14] MEDS: NITROGLYCERIN 1000MCG/10ML SYRINGE INTRACORON ONE (10:04)
[2024-02-14] MEDS: IOPAMIDOL-370 200ML BTL INJ ONE (10:22)
[2024-02-14] MEDS: HEPARIN SODIUM 1,000 UN/ML (10ML VL) IV ONE (10:25)
[2024-02-14] MEDS ORDERED: ZOLPIDEM 5 MG TAB PO PRN (10:33)
[2024-02-14] MEDS ORDERED: ATROPINE SULFATE 0.1 MG/ML 10ML SYRINGE IV PRN (10:33)
[2024-02-14] MEDS ORDERED: RX INFO: IV CONTRAST WAS GIVEN 1 EACH MISC MISCELLANE PRN (10:33)
[2024-02-14] MEDS ORDERED: MAG HYDROX/AL HYDROX/SIMETH 30 ML CUP PO PRN (10:33)
[2024-02-14] MEDS ORDERED: NITROGLYCERIN SL TABS 0.4 MG TAB SUBLINGUAL PRN (10:33)
--- NOTE | 2024-02-14 10:43 | P.CARDCATH ---
Date of Procedure: 02/14/24 Description of Procedure: Cardiac Catheterization: The patient is a 73-year-old female, status post stenting of the LAD in 2020, history of hypertension and hyperlipidemia who has been complaining of symptoms of chest discomfort and dyspnea on exertion and had an abnormal MPI with anterolateral wall ischemia. Recommendations were made regarding cardiac catheterization, the risks and the complications were discussed with the patient who is in full understanding and agreement. 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 Using Xylocaine Anesthesia and modified Seldinger technique, a 6-[place]ese sheath was introduced in the left radial artery . Subsequently, selective coronary angiography was performed using a 5-[place]ese 4 bend Robel catheter. Multiple views of the coronary artery including hemiaxial views were obtained. The right Robel catheter was used to cross the aortic valve and LVEDP was calculated. PCI: After removing the catheters a 6 [place]ese CLS 3.5 guiding catheter was introduced and after cannulating the left main a 0.014 BMW J-wire was positioned in the distal diagonal branch. Subsequently a 2.5 x 12 mm trek balloon was advanced and 1 inflation at 8 maico was done. After removing the balloon a [place] eye IVUS catheter was introduced and images were obtained and revealed a soft plaque with a diameter distally of 2.5 mm. After removing the catheter a 2.5 x 12 mm Xience elver point stent was deployed at 14 maico. After removing the balloon repeat IVUS imaging was performed that revealed good apposition of the stent. At that point the wire was removed and images were obtained and revealed stable successful stenting. Following that, catheter and sheath were removed. Hemostasis was obtained with deployment of vascular band . There was no im mediate complication. Patient was returned to room in stable condition. Of note, the patient received a total of 10,000 units of intravenous heparin as well as intra-arterial verapamil. She received an oral loading dose of clopidogrel. Her ACT was followed. She had EKG changes and chest discomfort with the inflations that resolved at the end of the procedure. Findings: Fluoroscopy: Calcification of the proximal LAD was noted. Left main: This is a large size vessel, bifurcating into LAD and left circumflex, left main has no high-grade stenosis LAD: This is a large size vessel, reaching to the apex tapers down distally. Gives rise to a large diagonal branch. The stented segment in the proximal LAD is patent with minimal in-stent restenosis. The LAD after the takeoff of the diagonal branch has a tubular 40 to 50% plaque, the diagonal branch has an 80% stenosis proximally, the rest of the vessel has no high-grade stenosis. Left circumflex: This is a large nondominant vessel giving rise to a large obtuse marginal branch that has no evidence of high-grade stenosis RCA: This is a dominant vessel large in caliber bifurcating distally to PDA and PLV. The proximal and mid RCA has mild disease of 20 to 30% with no high-grade stenosis Left Ventriculogram: Not performed Hemodynamics: There was no gradient across aortic valve, LVEDP was 8-10 mmHg Conclusion: 1. Calcified proximal LAD 2. Severe stenosis in the first diagonal branch with patent stent in the proximal LAD. Moderate disease in the LAD after the takeoff of the diagonal branch 3. Mild disease in the RCA 4. Successful stenting of the diagonal branch with reduction of stenosis from 80% to 0% with IVUS imaging. HEENA-3 flow was noted. Recommendations: The patient will continue on aspirin and clopidogrel with no interruption for 6 months in addition to aggressive coronary risks modification, attempting to maintain LDL below 70 mg/dL. The findings and the recommendations were discussed with the patient and the family and they were in full understanding and agreement. Duration of sedation is 44 minutes.
[2024-02-14] MEDS ORDERED: SODIUM CHLORIDE 0.9% 1,000 ML in EMPTY BAG 1 BAG IV SCH (10:45)
[2024-02-14 13:24] VITALS: RESP 16
[2024-02-14] MEDS: ACETAMINOPHEN TAB 500 MG TAB PO STA (14:15)
[2024-02-14 15:57] VITALS: BP 142/76; PULSE 68
[2024-02-14] MEDS ORDERED: EZETIMIBE 10 MG TAB PO SCH (19:00)
[2024-02-14] MEDS ORDERED: LOSARTAN 50 MG TAB PO SCH (21:00)
[2024-02-14] MEDS ORDERED: METOPROLOL TARTRATE 50 MG TAB PO SCH (21:00)
[2024-02-15] MEDS ORDERED: LEVOTHYROXINE 112 MCG TAB PO SCH (06:30)
[2024-02-15] MEDS ORDERED: CLOPIDOGREL 75 MG TAB PO SCH (09:00)
[2024-02-15] MEDS ORDERED: ASPIRIN 81 MG PO SCH (09:00)
[2024-02-16] MEDS ORDERED: LEVOTHYROXINE 112 MCG TAB PO SCH (06:30)
== END 2024-02-14 14:57 | disposition home or self-care (01) ==
LOC: CATHCVL 07:37
PROVIDERS: ATTEND Internal Medicine Interventional Cardiology
DX: I25.10 Atherosclerotic heart disease of native coronary artery without angina pectoris (principal); I10 Essential (primary) hypertension; E78.5 Hyperlipidemia, unspecified; Z95.5 Presence of coronary angioplasty implant and graft; Z79.899 Other long term (current) drug therapy; Z79.01 Long term (current) use of anticoagulants
CPT/HCPCS: 92978; 93458; C9600; C1769 ×3; C1887; C1894; C1725; C1753; C1874; J2001; J1644; J3010; Q9967; J2305

== ENCOUNTER → 2024-04-29 | Outpatient (CLI) | payer MEDICARE, BC ==
--- NOTE | 2024-05-04 11:32 | MM ---
Reason for Exam: Screening (asymptomatic). Last mammogram was performed 1 year(s) and 7 month(s) ago. Patient History: Menarche at age 10. First Full-Term at age 28. Postmenopausal. Patient has history of breast feeding. Core Biopsy on the Right side. 12/20/2001, Benign Stereotactic Core Biopsy on the right side. Maternal aunt had breast cancer, age 74. Sister had breast cancer, age 73. Risk Values: Rhea 5 year model risk: 5.6%. NCI Lifetime model risk: 14.1%. Prior Study Comparison: 09/11/2017 Bilateral Screening Mammogram, [facility]. 06/09/2020 Bilateral Screening Mammogram, [facility]. 10/02/2022 Bilateral MG 3D screening mammo w/cad, [facility]. Tissue Density: The breasts are almost entirely fatty. Findings: Analyzed By CAD. Right breast: There is no suspicious group of microcalcifications or new suspicious mass. Left breast: There is no suspicious group of microcalcifications or new suspicious mass. Overall Assessment: Negative, BI-RAD 1 Management: Screening Mammogram of both breasts in [address] [facility] will attempt to contact patient to return for supplemental views and ultrasound if indicated. Patient should continue monthly self-breast exams. A clinical breast exam by your physician is recommended on an annual basis. This exam should not preclude additional follow-up of suspicious palpable abnormalities. Note on Rhea scores and lifetime risk: 1. A Rhea score greater than 3% is considered moderate risk. If this is the case, consider specialist referral to assess eligibility for a risk reducing agent. 2. If overall lifetime risk for the development of breast cancer is 20% or higher, the patient may qualify for future screening with alternating mammogram and breast MRI. Electronically signed and approved by: Randal Jean DO
== END | disposition home or self-care (01) ==
LOC: RADMAMWWP 10:53
PROVIDERS: ATTEND Internal Medicine Geriatric Medicine
DX: Z12.31 Encounter for screening mammogram for malignant neoplasm of breast
CPT/HCPCS: 77063; 77067

== ENCOUNTER → 2025-02-05 | Outpatient (CLI) | payer MEDICARE, BC ==
[2025-02-05 15:25] LABS: HCT 40.1 % (37.2-46.3); HGB 12.9 g/dL (12.0-15.0); MCV 87.2 FL (80.0-97.0)
[2025-02-05 15:26] LABS: Basophils # (A) 0.07 X 10*3/uL (0.00-0.10); Basophils % (A) 1.1 %; Eosinophils # (A) 0.34 X 10*3/uL (0.04-0.35); Eosinophils % (A) 5.2 %; Lymphocytes # (A) 0.83 X 10*3/uL (0.90-5.00); Lymphocytes % (A) 12.8 %; MCHC 32.2 g/dL (32.0-37.0); Mean Platelet Volume 9.7 FL (9.5-12.2); Monocytes # (A) 0.46 X 10*3/uL (0.20-1.00); Monocytes % (A) 7.1 %; NRBC Per 100 WBC 0 X 10*3/uL (0.00-0.01); Neutrophils # (A) 4.78 X 10*3/uL (1.80-7.70); Neutrophils % (A) 73.5 %; Platelet Count 451 X 10*3/uL (140-440); RDW 14.2 % (11.5-14.5)
[2025-02-05 16:02] LABS: ALT 20 U/L (8-44); AST 15 U/L (13-35); Albumin 4.3 g/dL (3.8-4.9); Albumin/Globulin Ratio 1.79 Ratio (1.60-3.17); Alkaline Phosphatase 140 U/L (41-126); BUN/Creat Ratio 31.25 Ratio (12.00-20.00); Calcium 9.7 mg/dL (8.7-10.3); Carbon Dioxide 22.4 mmol/L (21.6-31.8); Chloride 98 mmol/L (96-109); Chol/HDL Ratio 3.25 Ratio; Globulin 2.4 g/dL (1.6-3.3); Glucose 90 mg/dL (70-110); LDL Cholesterol,Calculated 101.7 mg/dL (0.0-131.0); Potassium 4.4 mmol/L (3.5-5.5); Sodium 132 mmol/L (135-145); T4, Free (Free Thyroxine) 2.19 ng/dL (0.80-1.80); Total Bilirubin 0.3 mg/dL (0.3-1.2); Total Protein 6.7 g/dL (6.2-8.2)
== END | disposition home or self-care (01) ==
LOC: LABWHC1 08:56
PROVIDERS: ATTEND Internal Medicine Interventional Cardiology
DX: I10 Essential (primary) hypertension (principal); I25.10 Atherosclerotic heart disease of native coronary artery without angina pectoris; E78.2 Mixed hyperlipidemia; E03.9 Hypothyroidism, unspecified; R73.9 Hyperglycemia, unspecified
CPT/HCPCS: 36415; 80053; 80061; 83036; 84439; 84443; 85025